=== PATIENT | female | born 1955 | race Caucasian/White ===

== ENCOUNTER → 2018-04-06 09:47 | Outpatient (CLI) | payer MEDICAID, SELFPAY ==
[2018-04-06 12:25] LABS: Erythrocyte Sedimentation Rate 19 mm/hr (0-30)
[2018-04-06 12:29] LABS: Absolute Lymphocyte Count 2.61 X10^3/ul (0.83-4.51); Absolute Neutrophil Count 10.2 X10^3/uL (2.0-7.7); Basophil# 0.06 X10^3/uL; Basophil% 0.4 % (0-1); Eosinophil# 0.15 X10^3/uL; Eosinophils% 1.1 % (0-5); Hematocrit 49.1 % (37-47); Hemoglobin 16.6 g/dl (12.0-15.0); Lymphocyte # 2.61 X10^3/ul (4.0); Mean Corp Hgb Conc 33.8 g/gl (32-36); Mean Corpuscular Hgb 31.8 pg (27.0-32.0); Mean Corpuscular Volume 94.1 fL (81-99); Mean Platelet Vol. 10.6 fl (6.2-12.0); Monocyte# 0.69 X10^3/uL; Neutrophil # 10.19 X10^3/uL (2.7-7.7); Neutrophil % 74.3 % (47-70); Platelet Count 316 K/mm3 (150-450); RBC Distribution Width CV 14.1 % (11.6-14.6); RBC Distribution Width SD 47.4 fl (35.1-43.9); Red Blood Count 5.22 M/mm3 (4.2-5.4); White Blood Count 13.7 K/mm3 (4.4-11.0)
[2018-04-06 12:36] LABS: POSITIVE COUNT NO; POSITIVE DIFFERENTIAL NO; POSITIVE MORPHOLOGY NO
[2018-04-06 12:38] LABS: Vitamin B12 598 pg/mL (211-911); Vitamin D,25 Hydroxy 13.6 ng/mL (29.95-100.01)
[2018-04-06 12:41] LABS: AST(SGOT) 22 U/L (15-37); Alanine Aminotransfer ALT/SGPT 22 U/L (13-56); Albumin, Serum 3.8 g/dL (3.2-5.0); Alkaline Phosphatase 104 U/L (45-117); Anion Gap 9 (5-15); BUN 15 mg/dL (7-18); BUN/Creat Ratio 15.5 RATIO (10-20); Calcium,Total 9.7 mg/dL (8.5-10.1); Chloride 108 mmol/L (98-107); Creatinine, Serum 0.97 mg/dL (0.55-1.02); EST Glomerular Filtration Rate 62 mL/min (>60); Est Glom Filt Rate - Afr Amer 75 mL/min (>60); Glucose 86 mg/dL (74-106); Potassium 4.2 mmol/L (3.5-5.1); Protein, Total 7.8 g/dL (6.4-8.2); Sodium Level 141 mmol/L (136-145); Thyroid Stim Hormone (TSH) 1.94 uIU/mL (0.358-3.74)
== END ==
PROVIDERS: Family Provider Family Medicine; PCP Family Medicine; Visit Provider Family Medicine
DX: R53.83 Other fatigue (principal)
CPT/HCPCS: 80053; 82306; 82607; 84443; 85025; 85652

== ENCOUNTER → 2018-04-13 09:23 | Outpatient (CLI) | payer MEDICAID, SELFPAY ==
[2018-04-13 10:34] LABS: Hematocrit 48.3 % (37-47); Hemoglobin 16.2 g/dl (12.0-15.0); Mean Corp Hgb Conc 33.5 g/gl (32-36); Mean Corpuscular Hgb 31.6 pg (27.0-32.0); Mean Corpuscular Volume 94.3 fL (81-99); Mean Platelet Vol. 10.5 fl (6.2-12.0); Platelet Count 326 K/mm3 (150-450); RBC Distribution Width CV 14.3 % (11.6-14.6); RBC Distribution Width SD 47.9 fl (35.1-43.9); Red Blood Count 5.12 M/mm3 (4.2-5.4)
[2018-04-13 10:37] LABS: Scan Indicated on CBC? Y/N NO
[2018-04-13 10:55] LABS: Thyroid Stim Hormone (TSH) 3.57 uIU/mL (0.358-3.74)
== END ==
PROVIDERS: Family Provider Family Medicine; PCP Family Medicine; Visit Provider Family Medicine
DX: D72.829 Elevated white blood cell count, unspecified (principal); E55.9 Vitamin D deficiency, unspecified
CPT/HCPCS: 36415; 84443; 85027

== ENCOUNTER → 2018-11-01 07:47 | Outpatient (CLI) | payer MEDICAID, SELFPAY ==
[2018-09-19 15:06] VITALS: BMI 21.7
--- NOTE | 2018-11-01 07:55 | BI_ITS ---
MAMMOGRAPHY - BILATERAL SCREENING REASON FOR EXAM: Female, 63 years old. Routine annual screening examination. PERTINENT HISTORY: Sister with breast cancer. History of bilateral breast implants. Left implant rupture in August 2018. TECHNIQUE: Digital bilateral breast celeste (3D mammographic acquisition) in the CC and MLO projections. 2-D mediolateral oblique (MLO) and craniocaudad (CC) views of both breasts were obtained. CAD: Full Field Digital Mammography with Computer Added Detection was performed. COMPARISON: Comparison is made with prior study dated May 26, 2017. FINDINGS: Breast Composition: There are scattered areas of fibroglandular density. There are no dominant masses or suspicious calcifications. The right breast implant is stable and unremarkable. There is evidence of rupture of the left breast implant with a retraction posteriorly. No other significant abnormalities are identified. BI/SCREEN MAMM (CAD) W/CELESTE BILAT IMPRESSION: Stable bilateral screening mammogram. Rupture of the left breast implant with retraction posteriorly. Yearly follow-up mammogram recommended. (A) ASSESSMENT CATEGORY: Approximately 10% of breast cancers are not detected by mammography. A normal mammogram should not delay biopsy of a clinically suspicious abnormality. [id number] Electronically Signed: Osbaldo Herzog MD at 9:19 EST , Service support ,
== END ==
PROVIDERS: Family Provider Family Medicine; PCP Family Medicine; Referring Provider Surgery; Visit Provider Surgery
DX: Z12.31 Encounter for screening mammogram for malignant neoplasm of breast (principal); T85.43XA Leakage of breast prosthesis and implant, initial encounter; Z98.82 Breast implant status; Z80.3 Family history of malignant neoplasm of breast
CPT/HCPCS: 77063; 77067

== ENCOUNTER 2018-12-23 09:52 | Day surgery (SDC) | payer MEDICARE, MEDICAID, SELFPAY ==
[2018-09-19 15:06] VITALS: BMI 21.7
--- NOTE | 2018-12-23 | LES_PTH ---
PATIENT: SEVEN MOORE LOC: [facility] U#:[id number] AGE/SX: 63/F ROOM: RE12/23/[address]: Dr. Gregorio Carolina MD : 1955 BED: DIS: 12/23/2018 SPEC #: [id number] RECD: 12/23/18 15:35 STATUS: YVETTE ANNEMARIE #: [id number] NISHI: 12/23/18 00:[address]: Gregorio Carolina DEPT: SURGICAL PATHOLOGY RECD BY: Slime Kennedy ENTERED: 12/26/18 07:39 SP TYPE: Lesion OTHR DR: Dr. Eder Duque MD Tissues: A - Skin of breast, NOS B - Skin of breast, NOS Procedures: Frozen Section (charge) Surgery Specimen Level IV HEADER OPERATION: Excision lesion skin with skin flap, frozen section, medial breast PRE-OP DIAGNOSIS: 11 mm erythematous lesion left medial breast by sternum TISSUE SUBMITTED: A - 11 mm erythematous lesion left medial breast by sternum, B - Basal cell carcinoma left medial breast by sternum, suture at 12 o'clock FROZEN SECTION DIAGNOSIS A. Skin of left medial breast, shave biopsy: Basal cell carcinoma. AM:elly 12/23/18 Case has been reviewed in consultation with Dr. Garcia who concurs with the above diagnosis. IDC:SJ MICROSCOPIC DIAGNOSIS A. Skin of left medial breast, shave biopsy: Basal cell carcinoma (1.3 cm in greatest width), incompletely excised. Solar elastosis. B. Basal cell carcinoma left breast by sternum, excisional biopsy: Basal cell carcinoma (0.6 cm in greatest width), completely excised in the planes of sections examined. Actinic keratosis and solar elastosis. LALO:elly 12/27/18 COMMENT Case has been reviewed in consultation with Dr. Lockett who concurs with the above diagnosis. IDC:AM MICROSCOPIC DESCRIPTION Slides are reviewed. GROSS DESCRIPTION A - Received fresh for frozen section consultation labeled with the patient's name is a specimen designated left medial skin shave biopsy. The specimen consists of a light chen shaved skin fragment measuring 1.5 x 1 x 0.1 cm. The specimen is inked, trisected and totally submitted for frozen section consultation in one block. / AM:elly 12/23/18 B - Received in fixative is one container labeled with the patient's name and designated basal cell carcinoma left medial breast by sternum, suture at 12 o'clock. The specimen consists of a ivy-shaped piece of chen-white skin measuring 2 x 1.5 cm and up to 0.4 cm in thickness. An open area of ulceration is noted consistent with site of specimen measuring 1 cm in greatest dimension. The specimen is inked as follows: 12 to 3 o'clock - black, 3 to 6 o'clock - blue, 6 to 9 o'clock - green and 9 to 12 o'clock - yellow. The specimen is serially sectioned and submitted entirely in one cassette. / SJ:elly 12/26/18 TC:0 CPT: 45023 x2, 37722
--- NOTE | 2018-12-23 00:05 | PCM.HP.BLA ---
History and Physical Date of Admission: 12/23/18 HISTORY OF PRESENT ILLNESS Patient is a 63 year old female presents for evaluation of breast implant removal. She believes her left breast implant ruptured about one month ago. She denies any trauma to her breasts. She states it started out as a small dimpling on her left breast and the next day it spontaneously flattened. She had saline implants placed at [facility] in [address] Webb. They no longer have her records from the time of surgery. She states they are saline implants and she believes they are 350 cc implants and placed under the muscle. She denies any pain or discomfort at this time. She does have a positive family history of breast cancer from her sister and aunt. Her last mammogram was over a year ago in 05/30. She also has a concern about an erythematous lesion on her left medial breast by the sternum that has increased in size over the last several months and has developed irregular borders and has become more raised in configuration. She denies any bleeding from this lesion. PAST MEDICAL HISTORY Negative PAST SURGICAL HISTORY section hysterectomy breast implants, bilateral ALLERGIES No Known Allergies MEDICATIONS alprazolam FAMILY HISTORY Father - Cancer Brother - Cancer Sister - Cancer SOCIAL HISTORY Smoking Status: Current every day smoker REVIEW OF SYSTEMS General - Denies fever and weight loss. Has fatigue. Eyes - Denies cataracts and glaucoma. ENT - Denies nasal congestion and sore throat. Endocrine - Denies excessive thirst and urination. Skin - Denies skin cancer. She has an enlarging erythematous lesion left medial breast by the sternum. Musculoskeletal - Denies joint pain, joint stiffness, weakness of muscles and joints, back pain, and arthritis. Breasts - Has history of saline breast implants and recent flattening of left breast clinically consistent with implant rupture. Neuro - Denies headaches. Cardiovascular - Denies chest pain, fatigue, and shortness of breath with exertion. Psych - Denies anxiety. Has depression. Has claustrophobia. Respiratory - Denies chronic cough and shortness of breath. Gastrointestinal - Denies nausea, vomiting, diarrhea, and constipation. Hematologic - Denies abnormal bruising and bleeding. Genitourinary - Denies hematuria and urinary frequency. PHYSICAL EXAMINATION General - Alert and oriented. Bra size is C cup after the implants. Bra size was A cup before the implants. HEENT - PERRL. EOMI. Throat is clear. Neck - Supple and non-tender. No cervical adenopathy. Breasts - Has breast asymmetry with flattening and rupture of left breast saline implant. Breasts are nontender. Nipple is located just below the inframammary fold with early Stage II ptosis. There is some superior pole fullness on the right breast. No breast masses palpable. No axillary adenopathy. Breasts are nontender. Periareolar incisions remain well healed. Breast width is 14 cm bilaterally. On the left medial breast by the sternum is an erythematous lesion that measures 12 mm. Is nodular with irregular borders. It is raised in configuration. No ulceration. Lesion is nontender. Lungs- Clear to auscultation. Heart - Regular rate and rhythm. Abdomen - Soft and non distended. Extremities - FROM. No axillary adenopathy. Radial pulses are palpable. Neuro - CN II-XII grossly intact. Psych - Normal mood and affect. ASSESSMENT 1. 12 mm erythematous lesion left medial breast by the sternum. 2. Saline implant rupture left breast. 3. History of submuscular saline breast implants. 4. Family history of breast cancer. 5. Cancer phobia bilateral breasts. PLAN She also has a lesion on her left medial breast by the sternum that is clinically consistent with a basal cell carcinoma. Recommend excision of this lesion and send it to Pathology for analysis to rule out carcinoma. If carcinoma is present, then further excision will be done with a skin flap reconstruction. Surgery will be done on an outpatient basis under local anesthesia and IV sedation. Patient also has breast asymmetry with flattening and rupture of the left breast saline implant. She believes they were 350 ml implants and placed under the muscle. Cannot get the old records, because [facility] stated they keep records for 10 years and her implants were placed in 2003. Recommend to the patient that we should removed both saline implants with capsulectomy for symmetry purposes. She is not interested in replacing the implants at this time. She understands that there will be some looseness of the skin after removal of the implants. Some of the skin will contract but she should anticipate some looseness of skin. Patient understands that her insurance may not cover the cost of the surgery to remove the implants with capsulectomy and that she would be financially responsible. She voices understanding and wishes to proceed. She had a mammogram in 11/01. It showed scattered areas of fibroglandular density. There are no dominant masses or suspicious calcifications. The right breast implant is stable and unremarkable. There is evidence of rupture of the left breast implant with a retraction posteriorly. Over the years the patient has become concerned about developing breast cancer because of her family history. She also has concerns that the presence of the implants may miss a breast cancer on radiography. Because the implants need to be removed at this time because of rupture, she may benefit from prophylactic mastectomies at some point to minimize developing breast cancer in the future. Patient will let me know if she wants to proceed with that option. If so, would write a letter to her insurance carrier for medical approval. Will schedule the probable skin cancer excision first and then proceed with her breast implant removal surgery to avoid risk of cancer cell spread during the surgery. The implant surgery would be done under general anesthesia with a surgical observation overnight stay in the hospital. Patient was informed of the risks and complications of the procedure including alternatives to surgery. These were discussed with the patient personally. Patient voices understanding and wishes to proceed. Some of the risks and complications were included in a form from the [employer].
[2018-12-23 11:44] VITALS: BP 120/83; PULSE 74; RESP 14; TEMP 36.8; O2SAT 98; BMI 22.1
[2018-12-23] MEDS: Cefazolin 2 GM in 0.9% Normal Saline 100 ML IV (15:08)
[2018-12-23] MEDS: Mupirocin Ointment 22gm Tube 1 APPLIC (15:59)
--- NOTE | 2018-12-23 16:09 | PCM.OPRPT ---
Report of Operation Date of Procedure: 12/23/18 Pre-Operative Diagnosis: 12 mm erythematous lesion left medial breast by the sternum. Post-Operative Diagnosis: 12 mm basal cell carcinoma left medial breast by the sternum. Surgery/Procedure Performed:: Excision 12 mm basal cell carcinoma left medial breast by the sternum with rhomboid transposition skin flap reconstruction (6.48 cm2). Description of Surgical Findings:: Patient is a 63 year old female presents for evaluation of breast implant removal. She believes her left breast implant ruptured about one month ago. She denies any trauma to her breasts. She states it started out as a small dimpling on her left breast and the next day it spontaneously flattened. She had saline implants placed at [facility] in [address] Webb. They no longer have her records from the time of surgery. She states they are saline implants and she believes they are 350 cc implants and placed under the muscle. She denies any pain or discomfort at this time. She does have a positive family history of breast cancer from her sister and aunt. Her last mammogram was over a year ago in 05/30. She also has a concern about an erythematous lesion on her left medial breast by the sternum that has increased in size over the last several months and has developed irregular borders and has become more raised in configuration. She denies any bleeding from this lesion. Patient was informed of the risks and complications of the procedure including alternatives to surgery. These were discussed with the patient personally. Patient voices understanding and wishes to proceed. Some of the risks and complications were included in a form from the [employer]. Frozen section left medial breast by sternum - basal cell carcinoma. 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 Erythematous lesion left medial breast by sternum to Pathology as a frozen section. 2. Basal cell carcinoma left medial breast by sternum to Pathology. Drains: None. Estimated Blood Loss (mL): 10 ml. Grafts/Implants Used: None. - Complications None. - Admit VTE Documentation VTE Present on Admission: No VTE Mechan Device Prophylaxis: SCD's VTE Pharm Prophylaxis ordered?: No Code Visit Surgery Charges CPT - 24079 ICD-10 - C44.511, C44.519
[2018-12-23 16:16] VITALS: BP 107/74; BP 120/83; PULSE 72; RESP 16; TEMP 36.7; O2SAT 95
--- NOTE | 2018-12-23 16:16 | PCM.DC ---
You will use the following diet at home:: No restrictions Discharge Activity: May not drive while taking narcotic pain medications., May Shower - in two days., - - keep head elevated. no heavy lifting. wear a bra. May shower in (days): 2 May resume sexual activity in: No Restrictions Weight Bearing Status: Weight bearing as tolerated Lifting Restrictions: 20 lbs. Keep extremity elevated above heart level: - - elevate head. Call your doctor if your incision/area has: Continuous Slow Oozing, Sudden Increased Bleeding, Increased Pain/ Swelling, Increased Redness, Foul Smelling Discharge, Swelling at the incision site Call your doctor if you observe: Fever of 101 or Higher, Coldness, Increased Pain, Shortness of breath, Chest pain, Calf discomfort, Uncontrolled pain Suture Line Care: - - after operative dressing removed in two days, apply bactroban ointment to suture line daily. Change Dressing in (Days):: 2 Cleanse incision/area with: - - may get incision wet in the shower in two days. Allergies/Adverse Reactions: Allergies No Known Allergies Allergy (Verified 12/16/18 14:20) Medications to take at Discharge alprazolam 0.5 mg tablet 0.5 mg PO BID-TID PRN 09/19/18 Cholecalciferol (Vitamin D3) [Vitamin D3] 5,000 unit PO DAILY 12/16/18 Red Yeast Rice 1,200 mg PO DAILY 12/16/18 Mahin's Wort 300 mg PO DAILY 12/16/18 Cefadroxil [Duricef] 500 mg PO BID #8 cap 12/23/18 Lactobacillus Acidophilus/Fos [Acidophilus Probiotic Tablet] 1 ea PO BID #10 tab 12/23/18 Oxycodone HCl/Acetaminophen [Percocet 5/325] 1 tab PO 4X/DAY PRN PRN 5 Days #20 tab 12/23/18 The following prescriptions were given: Oxycodone HCl/Acetaminophen [Percocet 5/325] 1 tab PO 4X/DAY PRN PRN 5 Days #20 tab PRN Reason: Pain Cefadroxil [Duricef] 500 mg PO BID #8 cap Lactobacillus Acidophilus/Fos [Acidophilus Probiotic Tablet] 1 ea PO BID #10 tab Primary Care Physician: Rob Duque MD [Primary Care Provider] - Test Results: Test results from this visit will be discussed in further detail at your follow-up appointment, if applicable. Please Follow Up With: Gregorio Carolina MD When: one week. call [phone] for appt. Proposed Discharge Date: 12/23/18
--- NOTE | 2018-12-23 16:19 | DCINST_ITS ---
You will use the following diet at home:: No restrictions Discharge Activity: May not drive while taking narcotic pain medications., May Shower - in two days., - - keep head elevated. no heavy lifting. wear a bra. May shower in (days): 2 May resume sexual activity in: No Restrictions Weight Bearing Status: Weight bearing as tolerated Lifting Restrictions: 20 lbs. Keep extremity elevated above heart level: - - elevate head. Call your doctor if your incision/area has: Continuous Slow Oozing, Sudden Increased Bleeding, Increased Pain/ Swelling, Increased Redness, Foul Smelling Discharge, Swelling at the incision site Call your doctor if you observe: Fever of 101 or Higher, Coldness, Increased Pain, Shortness of breath, Chest pain, Calf discomfort, Uncontrolled pain Suture Line Care: - - after operative dressing removed in two days, apply bactroban ointment to suture line daily. Change Dressing in (Days):: 2 Cleanse incision/area with: - - may get incision wet in the shower in two days. Allergies/Adverse Reactions: Allergies No Known Allergies Allergy (Verified 12/16/18 14:20) Medications to take at Discharge alprazolam 0.5 mg tablet 0.5 mg PO BID-TID PRN 09/19/18 Cholecalciferol (Vitamin D3) [Vitamin D3] 5,000 unit PO DAILY 12/16/18 Red Yeast Rice 1,200 mg PO DAILY 12/16/18 Mahin's Wort 300 mg PO DAILY 12/16/18 Cefadroxil [Duricef] 500 mg PO BID #8 cap 12/23/18 Lactobacillus Acidophilus/Fos [Acidophilus Probiotic Tablet] 1 ea PO BID #10 tab 12/23/18 Oxycodone HCl/Acetaminophen [Percocet 5/325] 1 tab PO 4X/DAY PRN PRN 5 Days #20 tab 12/23/18 The following prescriptions were given: Oxycodone HCl/Acetaminophen [Percocet 5/325] 1 tab PO 4X/DAY PRN PRN 5 Days #20 tab PRN Reason: Pain Cefadroxil [Duricef] 500 mg PO BID #8 cap Lactobacillus Acidophilus/Fos [Acidophilus Probiotic Tablet] 1 ea PO BID #10 tab Primary Care Physician: Rob Duque MD [Primary Care Provider] - Test Results: Test results from this visit will be discussed in further detail at your follow- up appointment, if applicable. Please Follow Up With: Gregorio Carolina MD When: one week. call [phone] for appt. Proposed Discharge Date: 12/23/18
[2018-12-23 16:30] VITALS: BP 120/83; BP 90/68; PULSE 70; RESP 16; O2SAT 97
[2018-12-23 16:45] VITALS: BP 120/83; BP 125/83; PULSE 70; RESP 16; TEMP 36.7; O2SAT 97
[2018-12-23 17:12] VITALS: BP 120/83; BP 125/80; PULSE 68; RESP 16; TEMP 36.4; O2SAT 96
== END 2018-12-23 17:23 | disposition home or self-care (01) ==
LOC: SDC 09:54 → AC 12:50
PROVIDERS: Family Provider Family Medicine; PCP Family Medicine; Referring Provider Surgery; Visit Provider Surgery
PROC: (CPT 14000; principal; 2018-12-23 11:55)
DX: C44.511 Basal cell carcinoma of skin of breast (principal); C44.519 Basal cell carcinoma of skin of other part of trunk; T85.49XA Other mechanical complication of breast prosthesis and implant, initial encounter; Z98.82 Breast implant status; F17.200 Nicotine dependence, unspecified, uncomplicated; E78.00 Pure hypercholesterolemia, unspecified; F32.9 Major depressive disorder, single episode, unspecified; F41.9 Anxiety disorder, unspecified; Z80.3 Family history of malignant neoplasm of breast
CPT/HCPCS: 00400; 14000; 88305; 88331; J7120; J2405

== ENCOUNTER → 2019-01-12 08:38 | Outpatient (CLI) | payer MEDICARE, MEDICAID, SELFPAY ==
[2019-01-02 14:12] VITALS: BMI 22.1
[2019-01-12 10:07] LABS: Hematocrit 46.7 % (37-47); Hemoglobin 15.3 g/dl (12.0-15.0); Mean Corp Hgb Conc 32.8 g/gl (32-36); Mean Corpuscular Hgb 30.5 pg (27.0-32.0); Mean Corpuscular Volume 93.2 fL (81-99); Mean Platelet Vol. 10.2 fl (6.2-12.0); Platelet Count 336 K/mm3 (150-450); RBC Distribution Width CV 14.4 % (11.6-14.6); RBC Distribution Width SD 48.6 fl (35.1-43.9); Red Blood Count 5.01 M/mm3 (4.2-5.4); White Blood Count 10.3 K/mm3 (4.4-11.0)
[2019-01-12 10:12] LABS: Scan Indicated on CBC? Y/N NO
[2019-01-12 10:39] LABS: AST(SGOT) 16 U/L (15-37); Alanine Aminotransfer ALT/SGPT 17 U/L (13-56); Albumin, Serum 3.8 g/dL (3.2-5.0); Alkaline Phosphatase 108 U/L (45-117); Anion Gap 9 (5-15); BUN 16 mg/dL (7-18); BUN/Creat Ratio 17.6 RATIO (10-20); Calcium,Total 9.8 mg/dL (8.5-10.1); Chloride 107 mmol/L (98-107); Creatinine, Serum 0.91 mg/dL (0.55-1.02); EST Glomerular Filtration Rate 66 mL/min (>60); Est Glom Filt Rate - Afr Amer 80 mL/min (>60); Globulin 3.7 g/dL (2.2-4.2); Glucose 87 mg/dL (74-106); Potassium 4.1 mmol/L (3.5-5.1); Protein, Total 7.5 g/dL (6.4-8.2); Sodium Level 142 mmol/L (136-145)
[2019-01-12 14:16] LABS: Vitamin D,25 Hydroxy 46.6 ng/mL (29.95-100.01)
== END ==
PROVIDERS: Family Provider Family Medicine; PCP Family Medicine; Referring Provider Family Medicine; Visit Provider Family Medicine
DX: D72.829 Elevated white blood cell count, unspecified (principal); E55.9 Vitamin D deficiency, unspecified; R53.83 Other fatigue
CPT/HCPCS: 36415; 80053; 82306; 85027

== ENCOUNTER → 2019-06-26 09:26 | Outpatient (CLI) | payer MEDICARE, MEDICAID, SELFPAY ==
[2019-01-12 08:53] VITALS: BMI 22.1
--- NOTE | 2019-06-26 09:29 | US_ITS ---
PROCEDURES: ULTRASOUND AORTA REASON FOR EXAM: Female, 64 years old. Screening. TECHNIQUE: Ultrasound evaluation of the aorta was performed with real-time and static dove-scale imaging. COMPARISON: None. FINDINGS: There is no elongation or tortuosity of the abdominal aorta. Aorta measures: Proximal 1.9 cm. Middle 1.3 cm. Distal 1.1 cm. Aorta measure transversely: Proximal 1.8 cm. Middle 4.3 cm. Distal 1.2 cm. There is normal color flow and Doppler waveform and velocity Right iliac artery measures: 0.7 cm. Right iliac artery measure transversely: 0.8 cm. Left iliac artery measures: 0.7 cm. Left iliac artery measure transversely: 0.8 cm. There is no demonstrated aneurysm.. US/Aorta IMPRESSION: No evidence for abdominal aortic aneurysm. Electronically Signed: Alejandro Lyons DO at 12:42 EDT Tel [phone], Service support ,
== END ==
PROVIDERS: Family Provider Family Medicine; PCP Family Medicine; Referring Provider Family Medicine; Visit Provider Family Medicine
DX: Z13.6 Encounter for screening for cardiovascular disorders (principal)
CPT/HCPCS: 76775

== ENCOUNTER 2019-08-25 11:22 | Observation (INO) | payer MEDICARE, MEDICAID, SELFPAY ==
[2019-01-12 08:53] VITALS: BMI 22.1
[2019-08-18 10:22] LABS: Hematocrit 52.4 % (37-47); Hemoglobin 17.1 g/dL (12.0-15.0); Mean Corp Hgb Conc 32.6 g/dL (32-36); Mean Corpuscular Hgb 30.6 pg (27.0-32.0); Mean Corpuscular Volume 93.7 fL (81-99); Mean Platelet Vol. 11.5 fl (6.2-12.0); Platelet Count 256 K/mm3 (150-450); RBC Distribution Width CV 14.3 % (11.6-14.6); RBC Distribution Width SD 49.4 fl (35.1-43.9); Red Blood Count 5.59 M/mm3 (4.2-5.4)
--- NOTE | 2019-08-24 18:12 | PCM.HP.BLA ---
History and Physical Date of Admission: 08/25/19 HISTORY OF PRESENT ILLNESS Patient is a 64 year old female presents for evaluation of breast implant removal. She believes her left breast implant ruptured several month ago. She denies any trauma to her breasts. She states it started out as a small dimpling on her left breast and the next day it spontaneously flattened. She had saline implants placed at [facility] in [address] Webb. They no longer have her records from the time of surgery. She states they are saline implants and she believes they are 350 cc implants and placed under the muscle. She denies any pain or discomfort at this time. She does have a positive family history of breast cancer from her sister and aunt. Her last mammogram was in October,. It showed scattered areas of fibroglandular density. There are no dominant masses or suspicious calcifications. The right breast implant is stable and unremarkable. There is evidence of rupture of the left breast implant with a retraction posteriorly. PAST MEDICAL HISTORY Basal cell carcinoma left medial breast by the sternum PAST SURGICAL HISTORY section hysterectomy breast implants, bilateral Excision 12 mm basal cell carcinoma left medial breast by the sternum with rhomboid transposition skin flap reconstruction (6.48 cm2) - 12/23/18 ALLERGIES No Known Allergies MEDICATIONS alprazolam FAMILY HISTORY Father - Cancer Brother - Cancer Sister - Cancer SOCIAL HISTORY Smoking Status: Current every day smoker REVIEW OF SYSTEMS General - Denies fever and weight loss. Has fatigue. Eyes - Denies cataracts and glaucoma. ENT - Denies nasal congestion and sore throat. Endocrine - Denies excessive thirst and urination. Skin - Denies skin cancer. She has an enlarging erythematous lesion left medial breast by the sternum. Musculoskeletal - Denies joint pain, joint stiffness, weakness of muscles and joints, back pain, and arthritis. Breasts - Has history of saline breast implants and recent flattening of left breast clinically consistent with implant rupture. Neuro - Denies headaches. Cardiovascular - Denies chest pain, fatigue, and shortness of breath with exertion. Psych - Denies anxiety. Has depression. Has claustrophobia. Respiratory - Denies chronic cough and shortness of breath. Gastrointestinal - Denies nausea, vomiting, diarrhea, and constipation. Hematologic - Denies abnormal bruising and bleeding. Genitourinary - Denies hematuria and urinary frequency. PHYSICAL EXAMINATION General - Alert and oriented. Bra size is C cup after the implants. Bra size was A cup before the implants. HEENT - PERRL. EOMI. Throat is clear. Neck - Supple and non-tender. No cervical adenopathy. Breasts - Has breast asymmetry with flattening and rupture of left breast saline implant. Breasts are nontender. Nipple is located just below the inframammary fold with early Stage II ptosis. There is some superior pole fullness on the right breast. No breast masses palpable. No axillary adenopathy. Breasts are nontender. Periareolar incisions remain well healed. Breast width is 14 cm bilaterally. Lungs- Clear to auscultation. Heart - Regular rate and rhythm. Abdomen - Soft and non distended. Extremities - FROM. No axillary adenopathy. Radial pulses are palpable. Neuro - CN II-XII grossly intact. Psych - Normal mood and affect. ASSESSMENT 1. Saline implant rupture left breast. 2. History of submuscular saline breast implants. 3. Family history of breast cancer. 4. 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 5. Smoker. PLAN Patient has breast asymmetry with flattening and rupture of the left breast saline implant. She believes they were 350 ml implants and placed under the muscle. Cannot get the old records, because [facility] stated they keep records for 10 years and her implants were placed in 2003. Recommend to the patient that we should removed both saline implants with capsulectomy for symmetry purposes. She is not interested in replacing the implants at this time. She understands that there will be some looseness of the skin after removal of the implants. Some of the skin will contract but she should anticipate some looseness of skin. Patient understands that her insurance may not cover the cost of the surgery to remove the implants with capsulectomy and that she would be financially responsible. The insurance company did not approve removal of the implant on the right for symmetry. So will proceed with removal of the ruptured left implant with capsulectomy at this time. She had a mammogram in 11/01. It showed scattered areas of fibroglandular density. There are no dominant masses or suspicious calcifications. The right breast implant is stable and unremarkable. There is evidence of rupture of the left breast implant with a retraction posteriorly. The implant surgery would be done under general anesthesia with a surgical observation overnight stay in the hospital. Patient was informed of the risks and complications of the procedure including alternatives to surgery. These were discussed with the patient personally. Patient voices understanding and wishes to proceed. Some of the risks and complications were included in a form from the [employer]. Encouraged patient to stop smoking as it may have deleterious effects on wound healing.
[2019-08-25] VITALS (12 sets, daily range): BP systolic 104–137; BP diastolic 67–95; PULSE 76–91; RESP 16; TEMP 36.2–37; O2SAT 91–99; BMI 22.1
[2019-08-25] MEDS: Scopolamine 1mg/72hr Patch 1 PATCH TRANSDERM. (07:00)
[2019-08-25 07:36] LABS: Bedside Glucose 79 mg/dL (70-110)
[2019-08-25] MEDS: Magnesium Sulfate 4gm/100mL 4 GM/100 ML IV.SOLN. IV (07:54)
[2019-08-25] MEDS: Lactated Ringers 1,000 ML 40 ML IV (07:55)
[2019-08-25] MEDS: Acetaminophen 500 MG Tablet 1000 MG PO ×4 (07:56→23:00)
[2019-08-25] MEDS: Gabapentin 600 MG Tablet PO (07:56)
--- NOTE | 2019-08-25 09:20 | BRBX_PTH ---
PATIENT: SEVEN MOORE LOC: MS3 U#:[id number] AGE/SX: 64/F ROOM: [facility] [place] RE08/25/[address]: Dr. Gregorio Carolina MD : 1955 BED: 1 DIS: 08/26/2019 SPEC #: [id number] RECD: 08/25/19 12:06 STATUS: YVETTE RECarl #: [id number] NISHI: 08/25/19 09:[address]: Gregorio Carolina DEPT: SURGICAL PATHOLOGY RECD BY: Solitario Morin ENTERED: 08/25/19 14:04 SP TYPE: BREAST BX OTHR DR: Dr. Eder Duque MD Tissues: Left breast, NOS Procedures: Surgery Specimen Level IV HEADER OPERATION: Breast reconstruction with removal ruptured breast implant PRE-OP DIAGNOSIS: Saline implant rupture left breast TISSUE SUBMITTED: Ruptured saline breast implant, tissue and capsule from left breast area MICROSCOPIC DIAGNOSIS Breast implant capsule, excision: Breast tissue with fibrocystic change and associated Banal microcalcifications. Focal intraductal hyperplasia without atypia. Capsular tissue with fibrosis, foreign body giant cells and mild chronic inflammation. AM:elly 08/28/19 COMMENT Reference is made to the patient's previous left breast skin medial aspect, shave biopsy from 12/27/18 ([id number]) in which basal cell carcinoma was identified. MICROSCOPIC DESCRIPTION Slides are reviewed. GROSS DESCRIPTION Received in fixative is one container labeled with the patient's name and designated left breast tissue capsule, ruptured saline breast implant. The specimen consists of multiple irregular fragments of pink-yellow fibroadipose tissue that in aggregate measure 8 x 6 x 2 cm. No mass lesion is identified. Also present in the container is a collapsed breast implant measuring 14 cm in diameter. No inscription is noted on the implant. The implant is for gross identification only. Dev Ops Engineer sections of soft tissue are submitted in three cassettes. / SJ:elly 08/25/19 TC:3 CPT: 94855
[2019-08-25] MEDS: Cefazolin 2 GM in 0.9% Normal Saline 100 ML IV (09:45)
--- NOTE | 2019-08-25 11:06 | OP.PCM_ITS ---
Report of Operation Date of Procedure: 08/25/19 Pre-Operative Diagnosis: 1 Saline implant rupture left breast. 2. History of submuscular saline breast implants. 3. Family history of breast cancer. 4. Smoker. Post-Operative Diagnosis: 1 Saline implant rupture left breast. 2. History of submuscular textured saline breast implants. 3. Family history of breast cancer. 4. 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 5. Smoker. Surgery/Procedure Performed:: 1. Removal of textured saline implant left breast. 2. Capsulectomy left breast. Description of Surgical Findings:: Patient is a 64 year old female presents for evaluation of breast implant removal. She believes her left breast implant ruptured about one month ago. She denies any trauma to her breasts. She states it started out as a small dimpling on her left breast and the next day it spontaneously flattened. She had saline implants placed at [facility] in [address] Webb. They no longer have her records from the time of surgery. She states they are saline implants and she believes they are 350 cc implants. Patient was informed of the risks and complications of the procedure including alternatives to surgery. These were discussed with the patient personally. Patient voices understanding and wishes to proceed. Some of the risks and complications were included in a form from the [employer]. Encouraged patient to stop smoking as it may have deleterious effects on wound healing. I used Yessi absorbable hemostat. Reference Number - [id number]. Lot Number - [id number]. Expiration - May 10, 2024. vision teacher: Basil Carrera. Type of Anesthesia:: General Specimen's removed: 1. Ruptured texture saline implant left breast to Pathology. 2. Left breast tissue and capsule to Pathology and Microbiology. Drains: Joce. Estimated Blood Loss (mL): 50 ml. Description of Procedure: Patient was taken to OR in supine position and was placed under general anesthesia. The breasts were prepped and draped in the usual fashion. I also used Ioban draping. SCD's were placed for DVT prophylaxis. Perioperative antibiotics were given intravenously. Using xylocaine with epinephrine, the previous periareolar scar was infiltrated. After waiting 5 minutes for the anesthetic to take effect, incision was made through the periareolar scar into the subcutaneous tissue. After dissecting through the subcutaneous tissue, the breast capsule was seen. A capsulotomy was performed and the implant was removed. The textured saline implant was deflated. Some exudate was present on the implant and was sent for culture. A complete capsulectomy was performed in a submuscular fashion. Some of the tissue was sent to Pathology for analysis and some of the tissue was sent to Microbiology for culture. During the capsulectomy, there was some dense areas of scar tissue that was excised. There were also dark green cystic structures mostly under the nipple areolar complex that were excised and sent to pathology as well as to microbiology. A positive culture will necessitate antibiotic therapy. Hemostasis was obtained with electrocautery. I irrigated the breast pocket with Irrisept 0.05% Chlorhexidine solution. This was followed by irrigation with saline. A size 15 Joce drain was placed into the breast pocket through a separate stab incision laterally. It was secured to the skin with 3-0 Nylon suture. To further minimize seroma formation, I sprayed Yessi absorbable hemostat into the breast pocket. The wound was then closed in a layered fashion with 3-0 Monocryl figure of eight interrupted sutures for the deep subcutaneous tissue. The deep dermis and subcutaneous tissue was approximated with 3-0 Monocryl interrupted sutures. The skin was approximated with 3-0 V lock unidirectional barbed running subcuticular suture. The left breast was dressed with Kerlix gauze followed by an KENYATTA wrap for compression to minimize seroma formation. Patient tolerated the procedure well and was sent to PACU in satisfactory condition. Patient will be sent upstairs for continued postop care. She will keep her head elevated during the initial postop period. She will have the drains removed in 10-14 days and be maintained on antibiotics until the drains are removed. She will also be on a lifting restriction. Grafts/Implants Used: None. - Complications None. - Admit VTE Documentation VTE Present on Admission: No VTE Mechan Device Prophylaxis: SCD's VTE Pharm Prophylaxis ordered?: No Code Visit Surgery Charges CPT - 40797 ICD-10 - T85.43xA, Z98.82, Z80.3, T85.44xA, N65.1, F17.200
[2019-08-25] MEDS: Ensure Surgery 237 ML LIQUID PO ×2 (13:46→17:47)
[2019-08-25] MEDS: Cefazolin 1 GM/50 ML BAG IV ×2 (13:46→21:42)
[2019-08-25] MEDS: Docusate Sodium 100 MG Capsule PO (21:42)
[2019-08-25] MEDS: MELATONIN 10 MG TABLET 5 MG PO (21:54)
[2019-08-26 03:38] VITALS: BP 108/75; PULSE 84; RESP 16; TEMP 36.6; O2SAT 96
[2019-08-26] MEDS: Cefazolin 1 GM/50 ML BAG IV (05:22)
[2019-08-26] MEDS: Enoxaparin 40 MG/0.4 ML Syringe SC (05:23)
[2019-08-26 06:44] LABS: Hematocrit 43.9 % (37-47); Hemoglobin 14.1 g/dL (12.0-15.0); Mean Corp Hgb Conc 32.1 g/dL (32-36); Mean Corpuscular Hgb 30.4 pg (27.0-32.0); Mean Corpuscular Volume 94.6 fL (81-99); Platelet Count 289 K/mm3 (150-450); RBC Distribution Width CV 14.4 % (11.6-14.6); RBC Distribution Width SD 49.9 fl (35.1-43.9); Red Blood Count 4.64 M/mm3 (4.2-5.4)
[2019-08-26 07:01] LABS: Anion Gap 1 (5-15); BUN 14 mg/dL (7-18); BUN/Creat Ratio 16.8 RATIO (10-20); Calcium,Total 8.8 mg/dL (8.5-10.1); Chloride 110 mmol/L (98-107); Creatinine, Serum 0.83 mg/dL (0.55-1.02); EST Glomerular Filtration Rate 73 mL/min (>60); Est Glom Filt Rate - Afr Amer 88 mL/min (>60); Estimated Creatinine Clearance 48.54 ml/min; Glucose 98 mg/dL (74-106); Potassium 4.3 mmol/L (3.5-5.1); Prealbumin 25.1 mg/dL (20.0-40.0); Sodium Level 142 mmol/L (136-145)
[2019-08-26 07:03] VITALS: O2SAT 98
[2019-08-26] MEDS: Docusate Sodium 100 MG Capsule PO (07:53)
[2019-08-26] MEDS: Ensure Surgery 237 ML LIQUID PO (07:53)
[2019-08-26] MEDS: Acetaminophen 500 MG Tablet 1000 MG PO (07:57)
[2019-08-26 08:02] VITALS: BP 111/72; PULSE 81; RESP 16; TEMP 36.7; O2SAT 95
--- NOTE | 2019-08-26 08:13 | PCM.DC ---
You will use the following diet at home:: No restrictions Discharge Activity: May not drive while taking narcotic pain medications., May Not Shower - until the drain is removed., - - keep head elevated. no heavy lifting. May shower in (days): 14 - when the drain is removed. May resume sexual activity in: No Restrictions Weight Bearing Status: Weight bearing as tolerated Lifting Restrictions: 20 lbs. Keep extremity elevated above heart level: - - elevate head. Call your doctor if your incision/area has: Continuous Slow Oozing, Sudden Increased Bleeding, Increased Pain/ Swelling, Increased Redness, Foul Smelling Discharge, Swelling at the incision site Call your doctor if you observe: Fever of 101 or Higher, Coldness, Increased Pain, Shortness of breath, Chest pain, Calf discomfort, Uncontrolled pain Suture Line Care: - - dry dressing daily. Change Dressing in (Days):: 1 - dry dressing daily. Cleanse incision/area with: - - may get incision wet in the shower after the drain is removed. Drain: Suction - emily drain to bulb suction. empty and record output daily. Allergies/Adverse Reactions: Allergies No Known Allergies Allergy (Verified 08/25/19 07:44) Medications to take at Discharge alprazolam 0.5 mg tablet 0.5 mg PO BID-TID PRN 09/19/18 Cholecalciferol (Vitamin D3) [Vitamin D3] 5,000 unit PO DAILY 12/16/18 Red Yeast Rice 1,200 mg PO DAILY 12/16/18 [place]'s Wort 300 mg PO DAILY 12/16/18 Bupropion HCl [Wellbutrin Xl] 150 mg PO DAILY 08/18/19 Cefadroxil [Duricef] 500 mg PO BID #30 cap 08/25/19 Lactobacillus Acidophilus/Fos [Acidophilus Probiotic Tablet] 1 ea PO BID #30 tab 08/25/19 Oxycodone HCl/Acetaminophen [Percocet 5/325] 1 tab PO Q6H PRN PRN 7 Days #30 tab 08/25/19 The following prescriptions were given: Lactobacillus Acidophilus/Fos [Acidophilus Probiotic Tablet] 1 ea PO BID #30 tab Transmission Status: Received by [id number] Cefadroxil [Duricef] 500 mg PO BID #30 cap Transmission Status: Received by [id number] Oxycodone HCl/Acetaminophen [Percocet 5/325] 1 tab PO Q6H PRN PRN 7 Days #30 tab PRN Reason: Pain Score 4-5/10 Transmission Status: Received by [id number] Orders to be completed after discharge: CBC-Complete Blood Cnt No Diff Time Frame: 08/18/19, Facility: [facility], Location: Laboratory Primary Care Physician: Rob Duque MD [Primary Care Provider] - Test Results: Test results from this visit will be discussed in further detail at your follow-up appointment, if applicable. Please Follow Up With: Gregorio Carolina MD When: one week. call [phone] for appt. Proposed Discharge Date: 08/26/19
--- NOTE | 2019-08-26 12:03 | PCM.PN.SRG ---
Subjective: Postop #1 Patient is resting comfortable. She is tolerating po analgesia. She is anxious to go home. - Physical Exam Vitals/I&O's: Vital Signs Temp Pulse Resp BP Pulse Ox 98.1 F 81 16 111/72 95 08/26/19 08:02 08/26/19 08:02 08/26/19 08:02 08/26/19 08:02 08/26/19 08:02 Oxygen Flow Rate (L/min) 6 Oxygen Delivery Method Room Air Weight: 113 lb 12.136 oz Body Mass Index (BMI) 22.1 Intake and Output for Last 24 Hours 08/24/19 08/25/19 08/26/19 23:59 23:59 23:59 Intake Total 1241.33 / 1641.33 1182.00 / 1182.00 Output Total 1035 / 1775 1430 / 1430 Balance 206.33 / -133.67 -248.00 / -248.00 Drainage 35 ml yesterday, 80 ml today. Skin: - - left breast dressing is dry. Microbiology Past 72 Hours 08/25/19 11:37 Biopsy - Tissue Gram Stain - Final 08/25/19 11:37 Biopsy - Tissue Wound Culture - Preliminary No growth-Final to follow Laboratory Results 08/26/19 05:20: Sodium 142, Potassium 4.3, Chloride 110 H, Carbon Dioxide 31.0, Anion Gap 1 L, BUN 14, Creatinine 0.83, Estim Creat Clear Calc 48.54, Est GFR (MDRD) Af Amer 88, Est GFR (MDRD) Non-Af 73, BUN/Creatinine Ratio 16.8, Glucose 98, Calcium 8.8, Prealbumin 25.1 08/26/19 05:20: WBC 15.0 H, RBC 4.64, Hgb 14.1, Hct 43.9, MCV 94.6, MCH 30.4, MCHC 32.1, RDW Std Deviation 49.9 H, RDW Coeff of Carmelo 14.4, Plt Count 289, MPV 10.0 Medical Necessity - Tobacco Use Smoking Status: Current every day smoker Tobacco Use: Cigarettes Assessment/Plan All Active Problems (Last Updated 09/19/18 @ 14:59 by Ladonna Tomlin) Rupture of implant of left breast (Acute) 1 Saline implant rupture left breast. 2. History of submuscular textured saline breast implants. 3. Family history of breast cancer. 4. 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 5. Smoker. 6. s/p removal of textured saline implant left breast and capsulectomy left breast. Patient is resting comfortably. She is tolerating po analgesia. Operative culture is pending. Discharge home today. Followup office one week. Keep head elevated. Maintain linsey wrap compression. Continue lifting restriction. Wrote script for Cefadroxil until the drain is removed in the office. Wrote script for Percocet for pain (30 tabs).
== END 2019-08-26 09:31 | disposition home or self-care (01) ==
LOC: SDC 11:40
PROVIDERS: Admitting Provider Surgery; Family Provider Family Medicine; PCP Family Medicine; Referring Provider Surgery; Visit Provider Surgery
PROC: (CPT 19371; principal; 2019-08-25 09:05)
DX: T85.898A Other specified complication of other internal prosthetic devices, implants and grafts, initial encounter (principal); T85.44XA Capsular contracture of breast implant, initial encounter; Y81.2 Prosthetic and other implants, materials and accessory general- and plastic-surgery devices associated with adverse incidents; Z80.3 Family history of malignant neoplasm of breast; F17.210 Nicotine dependence, cigarettes, uncomplicated; F41.9 Anxiety disorder, unspecified; F32.9 Major depressive disorder, single episode, unspecified; Z79.899 Other long term (current) drug therapy; E78.00 Pure hypercholesterolemia, unspecified
CPT/HCPCS: 19371; 36415; 80048; 82962; 84134; 85027; 87015; 87070; 87075; 87102; 87116; 87205; 87206; 88305; 94762; 96365; 96366; 96372; 99218; 99251; J7120; G0378; G0379; G0463; J2405

== ENCOUNTER → 2019-09-12 09:05 | Outpatient (CLI) | payer MEDICARE, MEDICAID, SELFPAY ==
[2019-08-25 12:55] VITALS: BMI 22.1
[2019-08-31 13:18] VITALS: BMI 22.1
[2019-09-12 10:08] LABS: Hematocrit 48.2 % (37-47); Hemoglobin 15.8 g/dL (12.0-15.0); Mean Corp Hgb Conc 32.8 g/dL (32-36); Mean Corpuscular Hgb 30.1 pg (27.0-32.0); Mean Corpuscular Volume 91.8 fL (81-99); Mean Platelet Vol. 9.9 fl (6.2-12.0); Platelet Count 423 K/mm3 (150-450); RBC Distribution Width CV 14.1 % (11.6-14.6); Red Blood Count 5.25 M/mm3 (4.2-5.4); White Blood Count 9.9 K/mm3 (4.4-11.0)
== END ==
PROVIDERS: Family Provider Family Medicine; PCP Family Medicine; Referring Provider Surgery; Visit Provider Surgery
DX: T85.898A Other specified complication of other internal prosthetic devices, implants and grafts, initial encounter (principal); T85.44XA Capsular contracture of breast implant, initial encounter; Y81.2 Prosthetic and other implants, materials and accessory general- and plastic-surgery devices associated with adverse incidents
CPT/HCPCS: 36415; 85027

== ENCOUNTER → 2020-06-27 08:45 | Outpatient (CLI) | payer MEDICARE, MEDICAID, SELFPAY ==
[2020-06-17 15:09] VITALS: BMI 22.1
--- NOTE | 2020-06-27 08:46 | BI_ITS ---
MAMMOGRAPHY - BILATERAL DIAGNOSTIC REASON FOR EXAM: Female, 65 years old. Right implant rupture. Prior left implant rupture and removal. PERTINENT HISTORY: Sister with breast cancer. TECHNIQUE: Digital bilateral breast brenton (3D mammographic acquisition) in the CC and MLO projections. 2-D mediolateral oblique (MLO) and craniocaudad (CC) views of both breasts were obtained. CAD: Full Field Digital Mammography with Computer Added Detection was performed. COMPARISON: Comparison is made with prior study dated 11/01/2018 and 05/26/2017. FINDINGS: Breast Composition: There are scattered areas of fibroglandular density. The left breast implant has been removed surgically. There now is evidence of retraction of the left alveolar complex with overlying skin thickening. There now is evidence of a 1.7 cm x 1.4 cm irregular nodular density in the upper deep lateral portion of the left breast. Correlation with ultrasound is recommended. No other significant abnormalities are identified. BI/DIAG MAMM W/CAD, BILAT IMPRESSION: Status post rupture of the right breast implant and removal of the left breast implant with postoperative changes in the breasts as described. Correlation with ultrasound the left breast is recommended. ASSESSMENT CATEGORY: BIRADS Category 0: Incomplete. Need additional imaging evaluation. A letter regarding these results will be sent to the patient by the facility within 30 days. Approximately 10% of breast cancers are not detected by mammography. A normal mammogram should not delay biopsy of a clinically suspicious abnormality. Electronically Signed: Osbaldo Herzog, at 10:35 EDT , Service support ,
--- NOTE | 2020-06-27 09:37 | US_ITS ---
STUDY: ULTRASOUND BREAST - LEFT REASON FOR EXAM: Female, 65 years old. Abnormal screening mammogram. TECHNIQUE: Axial and longitudinal images of the LEFT breast were performed with a high resolution ultrasound transducer. # OF IMAGES: 21 COMPARISON: Comparison is made with prior mammogram done earlier in the day. FINDINGS: LEFT Breast: There is a 1.9 cm x 1.4 cm x 1.5 cm irregular heterogeneous mass at the 1 o''clock position of the breast at 4 cm from the nipple. Increased flow is seen within it. Focal calcifications. A biopsy recommended for further evaluation. US/Breast Limited Unilateral IMPRESSION: 1.9 cm x 1.4 cm x 1.5 cm irregular heterogeneous nodule at the 1 o''clock position of the breast at 4 cm from nipple. A biopsy is recommended. ASSESSMENT CATEGORY: BIRADS Category 4: Suspicious - Biopsy Should Be Considered. A letter regarding these results will be sent to the patient by the facility within 30 days. Electronically Signed: Osbaldo Herzog, at 15:37 EDT , Service support ,
== END ==
PROVIDERS: PCP Family Medicine; Referring Provider Surgery; Visit Provider Surgery
DX: T85.43XA Leakage of breast prosthesis and implant, initial encounter (principal); N63.21 Unspecified lump in the left breast, upper outer quadrant; Z98.82 Breast implant status; Z80.3 Family history of malignant neoplasm of breast
CPT/HCPCS: 76642; 77062; 77066; G0279

== ENCOUNTER → 2020-07-10 | Outpatient (CLI) | payer MEDICARE, MEDICAID, SELFPAY ==
--- NOTE | 2020-07-10 | IMM_PTH ---
PATIENT: SEVEN MOORE LOC: JULIANA U#:[id number] AGE/SX: 65/F ROOM: RE07/10/[address]: Dr. Ruddy Qureshi MD : 1955 BED: DIS: 07/10/2020 SPEC #: [id number] RECD: 07/11/20 12:48 STATUS: YVETTE REQ #: [id number] NISHI: 07/10/20 00:[address]: Ruddy Qureshi DEPT: IMMUNOHISTOCHEMISTRY RECD BY: Slime Kennedy ENTERED: 07/11/20 12:50 SP TYPE: IMMUNO OTHR DR: Dr. Eder Duque MD Tissues: Left breast, NOS Procedures: CALPONIN-1 (add) CK5-6 (add) E-CAD (add) HER2 GEORGINA (add) KI-67 (add) P53 (add) MT (add) IN SITU HYBRIDIZATION P40 (add) ER (initial) PHYSICIAN & INSTITUTION [place] [id number] SPECIMEN INFORMATION: Tissue Source: Left breast Clinical Info: Abnormal mammogram Specimen Number: [id number] CPT code: 28803, 67420 x6, 03442 x3 METHODOLOGY: Deparaffinized sections of prefer/formalin-fixed tissue or PAP/DQ stained slides are incubated with monoclonal/polyclonal antibodies/oligonucleotide probes. Localization is made via biotin free immunoperoxidase method. Appropriate controls are performed and reacted as expected. Results on target cell population are indicated in the following table: RESULTS: ANTIBODY / CLONE RESULT E-Cad (ECH-6) positive CK8 (64plouO09) positive Calponin-1 (UJ669P) negative CK5-6 (D5 & 1684) positive, focal P40 (BC28) negative P53 (DO-7) negative Ki-67 (30-9) positive, moderate MORPHOMETRIC ANALYSIS ER (clone 6F11) 0% MT (clone 16/1E2) 0% Her-2Neu (clone CB11) 2+ The prognostic test for HER2 is performed on formalin-fixed paraffin embedded tissue. A 3+ (positive) staining pattern is defined as intense, homogeneous, complete, circumferential membranous staining in >10% of contiguous tumor cells. A similar weak (2+) staining pattern is interpreted as equivocal. ZENIA follow-up testing is recommended for all equivocal cases. Positivity/negativity for ER/MT is reported if > or < 1% of the tumor cells are immuno- reactive, respectively. The ASCO/CAP criteria is used for scoring. Reference: Journal of Clinical Oncology, 2013; 31:4092-1716 & 2010; 16:8373-8347. Duration of fixation: 10.5 Hrs; Sample Adequate: Yes. These assays have not been validated on decalcified tissues. Results should be interpreted with caution given the likelihood of false negativity on decalcified specimens. These tests were developed and their performance characteristics determined by [facility]. They may not have been cleared or approved by the U.S. Food and Drug Administration. The FDA has determined that such clearance or approval is not necessary. The above immunohistochemical/dualISH markers are ordered and reviewed by the Pathologist. 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 Negative for estrogen receptors (unfavorable prognostic indicator). Negative for progesterone receptors (unfavorable prognostic indicator). Equivocal for overexpression of MTQ5guy. 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 Interpretative Information: The INFORM HER2 Dual ZENIA DNA Probe Cocktail assay is performed on formalin-fixed paraffin embedded tissue and determines HER2 gene status by detecting HER2 copies via silver in situ hybridization (SISH) and Chromosome 17 copies via chromogenic red in situ hybridization on tumor cells. A minimum of 20 cells representing > 10% of contiguous and homogeneous invasive tumor cells were analyzed. HER2 gene status is classified as Non-amplified (HER2/Chr17 ratio < 2.0) or Amplified (HER2/Chr17 ratio greater than or equal to 2.0). If the resulting HER2/Chr17 ratio falls within 1.8 - 2.2 (Borderline), retesting by FISH is recommended. Reference: Tien AC, Yobani BLANKENSHIPH, Dong DG, et al: Recommendations for Human Epidermal Growth Factor Receptor 2 Testing in Breast Cancer: [place] Society of Clinical On[employer] / College of [place] [employer] Clinical Practice Guideline Update. J Clin Oncol 31:6935-4105, 2013. SJ:elly 07/17/20
--- NOTE | 2020-07-10 09:00 | BRBX_PTH ---
PATIENT: SEVEN MOORE [facility] U[facility][id number] AGE/SX: 65/F ROOM: RE07/10/[address]: Dr. Ruddy Qureshi MD : 1955 BED: DIS: 07/10/2020 SPEC #: [id number] RECD: 07/10/20 09:46 STATUS: YVETTE REQ #: [id number] NISHI: 07/10/20 09:[address]: Ruddy Qureshi DEPT: SURGICAL PATHOLOGY RECD BY: Sunshine Cevallos ENTERED: 07/10/20 10:38 SP TYPE: BREAST BX OTHR DR: MD Dr. 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 See comment. LALO:elly 07/11/20 COMMENT The tumor shows extensive dense fibrosis. Immunohistochemistry ([id number]) supports the above diagnosis. ER/MT/Yfp6lgc studies are being performed on sections of tumor and the results from this study will be reported separately ([id number]). Please make reference to previous specimen ([id number]) breast implant capsule, excision with diagnosis of breast tissue with fibrocystic changes and associated Banal microcalcifications and focal intraductal hyperplasia without atypia and capsular tissue with fibrosis, foreign body giant cell cells and mild chronic inflammation. MICROSCOPIC DESCRIPTION Slides are reviewed. GROSS DESCRIPTION Received in fixative is one container labeled with the patient name and designated left breast biopsy. The specimen consists of an elongated fragment of chen-yellow fibroadipose tissue measuring 1.5 cm in length and 0.1 cm in diameter. The entire specimen is submitted in one cassette. / LALO:elly 07/10/20 TC:0 [facility]: [id number]
== END | disposition home or self-care (01) ==
LOC: LABSPEC 10:16
PROVIDERS: PCP Family Medicine; Visit Provider Surgery
DX: C50.912 Malignant neoplasm of unspecified site of left female breast (principal); Z17.1 Estrogen receptor negative status [ER-]
CPT/HCPCS: 88305; 88341; 88342; 88368

== ENCOUNTER 2020-07-23 08:07 | Day surgery (SDC) | payer MEDICARE, MEDICAID, SELFPAY ==
--- NOTE | 2020-07-19 09:48 | EKG12_ITS ---
Test Reason : PRE OP Blood Pressure : / mmHG Vent. Rate : 077 BPM Atrial Rate : 077 BPM P-R Int : 160 ms QRS Dur : 070 ms QT Int : 366 ms P-R-T Axes : 073 066 063 degrees QTc Int : 414 ms Normal sinus rhythm Nonspecific ST and T wave abnormality Abnormal ECG Confirmed by MIRIAN HAMILTON, JL ([id number]), tape editor MARIAMA CARVALHO ([id number]) on 07/22/2020 2:32:37 PM Referred By: Ruddy Qureshi Confirmed By:GREYSON VELA MD
[2020-07-19 10:30] LABS: Hematocrit 49.6 % (37-47); Hemoglobin 16.1 g/dL (12.0-15.0); Mean Corp Hgb Conc 32.5 g/dL (32-36); Mean Corpuscular Hgb 30.3 pg (27.0-32.0); Mean Corpuscular Volume 93.4 fL (81-99); Mean Platelet Vol. 10.2 fl (6.2-12.0); Platelet Count 356 K/mm3 (150-450); RBC Distribution Width CV 13.8 % (11.6-14.6); RBC Distribution Width SD 47.1 fl (35.1-43.9); Red Blood Count 5.31 M/mm3 (4.2-5.4); White Blood Count 8.1 K/mm3 (4.4-11.0)
[2020-07-23] VITALS (8 sets, daily range): BP systolic 132–151; BP diastolic 81–106; PULSE 75–86; RESP 16; TEMP 36.1–37; O2SAT 93–97; BMI 22.5
--- NOTE | 2020-07-23 | IMM_PTH ---
PATIENT: SEVEN MOORE LOC: [facility] [place] U#:[id number] AGE/SX: 65/F ROOM: RE07/23/[address]: Dr. Ruddy Qureshi MD : 1955 BED: DIS: 07/23/2020 SPEC #: [id number] RECD: 07/26/20 14:01 STATUS: YVETTE REQ #: [id number] NISHI: 07/23/20 00:[address]: Ruddy Qureshi DEPT: IMMUNOHISTOCHEMISTRY RECD BY: Slime Kennedy ENTERED: 07/26/20 14:02 SP TYPE: IMMUNO OTHR DR: Dr. Eder Duque MD Tissues: A - Axillary lymph node, NOS B - Axillary lymph node, NOS Procedures: CK7 (add) Pankeratin (initial) PHYSICIAN & INSTITUTION [place] [id number] SPECIMEN INFORMATION: Tissue Source: A - Bath lymph node, biopsy, B - Axillary lymph node biopsy Clinical Info: Malignant neoplasm of upper outer quadrant left breast, ER positive Specimen Number: [id number] A1 & B CPT code: 10091 x2, 27322 x2 METHODOLOGY: Deparaffinized sections of prefer/formalin-fixed tissue or PAP/DQ stained slides are incubated with monoclonal/polyclonal antibodies/oligonucleotide probes. Localization is made via biotin free immunoperoxidase method. Appropriate controls are performed and reacted as expected. Results on target cell population are indicated in the following table: RESULTS: ANTIBODY / CLONE RESULT Block A1 AE1-3 (AE1/AE3/PCK26) negative CK7 (OV-TL12/30) negative Block B AE1-3 (AE1/AE3/PCK26) negative CK7 (OV-TL12/30) negative These tests were developed and their performance characteristics determined by [facility]. They may not have been cleared or approved by the U.S. Food and Drug Administration. The FDA has determined that such clearance or approval is not necessary. The above immunohistochemical/dualISH markers are ordered and reviewed by the Pathologist. INTERPRETATION: A. Bath lymph node, biopsy: One lymph node, negative for metastatic carcinoma. B. Axillary lymph node, biopsy: Two out of two lymph nodes, negative for metastatic carcinoma. SJ:elly 07/29/20
--- NOTE | 2020-07-23 | AXNB_PTH ---
PATIENT: SEVEN MOORE LOC: [facility] [place] U#:[id number] AGE/SX: 65/F ROOM: RE07/23/[address]: Dr. Ruddy Qureshi MD : 1955 BED: DIS: 07/23/2020 SPEC #: [id number] RECD: 07/23/20 12:10 STATUS: YVETTE REQ #: [id number] NISHI: 07/23/20 00:[address]: Ruddy Qureshi DEPT: SURGICAL PATHOLOGY RECD BY: Slime Kennedy ENTERED: 07/23/20 12:34 SP TYPE: AX NODE BX OTHR DR: Dr. Eder Duque MD Tissues: A - Axillary lymph node, NOS B - Axillary lymph node, NOS C - Left breast, NOS Procedures: Frozen Section (charge) Frozen Section [facility] Surgery Specimen Level V Surgery Specimen Level HEADER OPERATION: Mastectomy, sentinel lymph node biopsy, radiotracer PRE-OP DIAGNOSIS: Malignant neoplasm of upper outer quadrant left breast, ER negative TISSUE SUBMITTED: A - Cosmos node, FS at 1206, B - Axillary lymph node, FS at 1206, C - Left breast tissue FROZEN SECTION DIAGNOSIS A. Cosmos lymph node, biopsy: One out of two lymph nodes, positive for metastatic carcinoma. B. Axillary lymph node, biopsy: Two out of two lymph nodes, negative for metastatic carcinoma. LALO:elly 07/23/20 MICROSCOPIC DIAGNOSIS A. Cosmos lymph node, biopsy: One out of two lymph nodes, positive for metastatic carcinoma. See comment. B. Axillary lymph node, biopsy: Two out of two lymph nodes, negative for metastatic carcinoma. See comment. C. Left breast, mastectomy: Invasive ductal carcinoma. See cancer summary in the comment section. LALO:elly 07/26/20 COMMENT A. Immunohistochemistry ([id number]) performed on block A1 and is negative for metastatic carcinoma. Metastatic focus of carcinoma measures 0.5 cm in greatest dimension. Focal extranodal extension is noted (0.2 cm in greatest dimension). B. The lymph nodes are negative for metastatic carcinoma on multiple H & E levels and immunohisto- chemical stains for cytokeratins ([id number]). INVASIVE BREAST CANCER SUMMARY Procedure - total mastectomy Specimen laterality - left Invasive tumor: Tumor site - upper outer quadrant Tumor size - 1.9 x 1.9 x 1.5 cm Histologic type - invasive ductal carcinoma Histologic grade (Madelin grade): Glandular/tubular differentiation score - 3 Nuclear pleomorphism score - 3 Mitotic count score - 2 Overall grade - grade 3 (score of 8) Tumor focality - single focus of invasive carcinoma. Ductal Carcinoma In Situ - present Size (extent) of DCIS - DCIS comprise about 5-10% of total tumor volume. Number of blocks with DCIS - 3 Number of blocks examined - 16 Architecture pattern - solid and comedo Nuclear grade - grade 3 (high) Necrosis - present, central (expansive comedo necrosis) Lobular carcinoma in situ - No lobular carcinoma in situ is present. Tumor extension: Skin - present and uninvolved Nipple - DCIS does not involve the nipple epidermis. Skeletal muscle - present and free of carcinoma. Margins - Uninvolved by invasive carcinoma and ductal carcinoma in situ. Invasive carcinoma and ductal carcinoma in situ are 1 cm away from the closest posterior margin. Regional Lymph Nodes: Total number of lymph nodes examined - 4 Number of sentinel lymph nodes examined - 2 Number of lymph nodes with macrometastasis - 1. Number of lymph nodes with micrometastasis and isolated tumor cells -0 Size of largest metastatic deposit: 5 mm Extranodal extension - present, Extent of extranodal extension - 2 mm Treatment effect - no known presurgical therapy. Lymphvascular invasion - not identified Dermal lymphvascular invasion - not identified Additional Pathologic Findings - fibrocystic changes and adenosis. Hyalinized fibroadenomas x2 (0.4 and 0.5 cm in greatest dimension. Ancillary Studies: Previously performed on same tumor ([id number] / [id number]) ER: negative (0%) AR: negative (0%) Den3hxq: equivocal (2+) Sve2ldp by dualISH: negative / not amplified (polysomy of chromosome of 17 is noted). Microcalcifications - present in DCIS, invasive carcinoma and in non-neoplastic tissue. Clinical History - Please make reference to previous specimen ([id number]) left breast, ultrasound-guided needle core biopsy with diagnosis of invasive ductal carcinoma. Radiologic findings: abnormal mammogram Pathologic Stage: pT1c pN1A pMx The above summary is in compliance with [employer] [employer] (CAP) Cancer Protocols Checklist and [place] [employer] Committee on Cancer (AJCC), Staging Manual, 8th Ed. MICROSCOPIC DESCRIPTION Slides are reviewed. GROSS DESCRIPTION A - Received fresh for frozen section diagnosis labeled with the patient's name is a specimen designated sentinel lymph nodes. The specimen consists of a piece of chen-yellow adipose tissue containing two nodules consistent with lymph nodes measuring 3 x 2 x 1 cm. The lymph nodes measure 0.5 x 1 cm in greatest dimension. The lymph nodes are submitted in entirety for frozen section diagnosis as follows: 1??one lymph node, 2 - one bisected lymph node. / : 07/23/20 B - Received fresh for frozen section diagnosis labeled with the patient's name is a specimen designated axillary lymph nodes. The specimen consists of a piece of adipose tissue measuring 2 x 1.5 x 0.7 cm. Two nodules consistent with lymph nodes are identified each measuring 0.5 cm in greatest in dimension. The lymph nodes are submitted for frozen section diagnosis in entirety in one cassette. / :rg 07/23/20 C - Received in fixative is one container labeled with the patient's name and designated left breast. The specimen consists of a mastectomy specimen consisting of breast tissue with overlying skin ellipse. The breast tissue measures 18.5 x 17.5 x 3 cm. The overlying skin ellipse measures 15 x 5 cm. The nipple measures 0.9 cm in greatest dimension. It appears to be retracted. Blue dye discoloration is noted on the surface. No skin lesion is identified. The specimen is inked as follows: posterior - black, superior - blue, inferior - green, medial - red and lateral - orange. A focal area of skeletal muscle tissue is noted in the posterior surface. It is inked yellow. Serial sections reveal chen, indurated nodule in the upper outer quadrant of the breast measuring 1.9 x 1.9 x 1.5 cm. This mass is 1 cm away from the closest posterior margin. Sections of the rest of the specimen reveal chen-yellow adipose cut surfaces mixed with chen-white fibrous areas. More dictation will follow after overnight fixation. / LALO:elly 07/23/20 Hadoop Infrastructure Architect sections are submitted in 15 cassettes as follows: 1 - lymph node, entirely submitted, 2??perpendicular medial, lateral margins and skin, 3 - perpendicular superior and inferior margins, 4??perpendicular posterior margin including skeletal muscle tissue, 5-8 - tumor, 9-11 - outside energy sales representatives sections adjacent to the tumor, 12-15 - outside energy sales representatives sections away from the tumor. Sections will be submitted after additional fixation. / Lauri 07/24/20 TC:0 CPT: 14891 x2, 11980, 83601 x2, 48883
--- NOTE | 2020-07-23 08:31 | HP_ITS ---
Intake Intake Visit Reasons: ONE WEEK F/U LEFT BREAST BIOPSY Chief Complaint: Follow up left breast biopsy 07/10 Javascript Front End Developer Required: No Accompanied by: Niece Is patient in pain?: No Allergies No Known Allergies Allergy (Verified 07/16/20 10:01) Medications alprazolam 0.5 mg tablet 0.5 mg PO BID-TID PRN 09/19/18 [History Confirmed 07/16/20] Cholecalciferol (Vitamin D3) [Vitamin D3] 5,000 unit PO DAILY 12/16/18 [History Confirmed 07/16/20] Bupropion HCl [Wellbutrin Xl] 150 mg PO DAILY 08/18/19 [History Confirmed 07/16/20] [facility] Medical History Left breast mass (Chronic) Rupture of implant of right breast (Acute) Breast implant removal status (Acute) Capsular contracture of breast implant (Chronic) Disproportion of reconstructed breast (Chronic) Basal cell carcinoma (BCC) of skin of left breast (Chronic) 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 (Chronic) Rupture of implant of left breast (Acute) Breast cancer, left (Acute) Surgical History H/O section (Acute) H/O: hysterectomy (Acute) History of left breast biopsy (Acute ~07/10/20) Hx of breast implants, bilateral (Acute) History of basal cell carcinoma excision (Chronic) Hx of breast surgery (Chronic) Family History Father Cancer Brother Cancer Sister Cancer Breast cancer Diabetes Mother Hypertension Social History (Updated 07/16/20 @ 12:[address] Ruddy Qureshi MD) Smoking Status: Current every day smoker HPI HPI Surgical H&P: Yes HPI: SEVEN MOORE, is a 65 F who presents to the office today for Follow-up from an ultrasound-guided left needle core breast biopsy. On 07/10/2020 she underwent a ultrasound-guided left needle core biopsy. 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 1 cm in greatest length. It was ER receptor negative. HER-2/dahiana 2+ positive. She recently had a mammogram and ultrasound which showed this lesion at the 1 o'clock position approximately 4 cm from the nipple. Prior to her surgery to remove the implant on the left side she did not feel this area. In reviewing her mammograms from 2019 nothing was seen. Patient is a 65 year old female presents for evaluation of recent deflation of her right breast textured saline implant. She believes her right breast implant ruptured a few weeks ago. She denies any trauma to her breasts. She states it started out as a small dimpling on her right breast and the next day it spontaneously flattened. She had saline implants placed at [facility] in [address] Webb. They no longer have her records from the time of surgery. They were placed under the muscle and she thinks they were 350 ml implants. They were textured implants. She had her left breast saline implant removed 08/25/19 after it ruptured. Her insurance denied her having both implants removed at that time, just the ruptured one. She denies any pain or discomfort at this time. She does have a positive family history of breast cancer from her sister and aunt. Her last mammogram was over a year ago on 11/01/18. She also had an erythematous lesion on her left medial breast by the sternum that was removed 12/23/18 and was a basal cell carcinoma and was reconstructed with a rhomboid transposition skin graft. ROS General General: Yes fatigue; no weight change, appetite, colon cancer, breast cancer or weakness HEENT HEENT: No difficulty swallowing, eye injury, eye surgery, swollen glands or hoarseness Endo Endocrine: No thyroid disease, diabetes mellitus, thyroid cancer, Hair loss, heat intolerance or cold intolerance Breast Breast: No left breast lump, right breast lump, nipple discharge, breast pain, abnormal mammogram, abnormal US or breast enlargement Musc Musculoskeletal: Yes back problems; no arthritis, rheumatoid arthritis, gout or joint pain Cardio Cardiovascular: No murmur, pacemaker, heart disease, atrial fibrillation, high blood pressure, heart attack, heart stent, palpitations, shortness of breat with exertion or chest pain Psych Psychiatric: Yes depression and anxiety; no hearing voices Resp Respiratory: No shortness of breath, No sleep apnea, No cough, No COPD, No asthma, No emphysema, No wheezing Gastro Gastrointestinal: No abdominal pain, No nausea or vomiting, No diarrhea, No constipation, No blood in stool, No acid reflux, Yes hemorrhoids, No ulcers, No gallbladder problem, No black,tarry stools Juan Hematologic: No blood thinners, No blood disorders, No bleeding, No anemia, No blood clots Neuro Neurologic: No weakness Exam Const General: no acute distress, well developed, well hydrated Orientation: oriented to person, oriented to place, oriented to time [facility] Head: normocephalic, atraumatic Ears: external ears normal Mouth: moist mucous membranes Eyes Sclera: sclerae normal Pupils: normal by confrontation Neck Neck: no lymphadenopathy noted Neck mass: No Thyroid: thyroid normal, symmetrical Chest Chest palpation & inspection: normal inspection of the chest Breast inspection: normal inspection of the breasts Breast Palpation: No nipple discharge Other: Palpation of the right breast reveals Negative. Palpation of the left breast reveals Biopsy site is clean without signs of infection.. Axillary exam demonstrates no suspicious masses in either the left or right axilla. Resp Effort & Inspection: normal respiratory effort Auscultation: clear to auscultation bilaterally Percussion: percussion normal Cardio Rate: regular rate Rhythm: regular rhythm Heart Sounds: no murmurs GI Palpation: soft, no hepatosplenomegaly, no masses, nontender Rectal Exam: other Other: Rectal exam deferred. Extrem General: normal to inspection, no clubbing, cyanosis or edema Assessment & Plan Problems 1. Malignant neoplasm of upper-outer quadrant of left breast in female, estrogen receptor negative C50.412; Z17.1 Plan I have given the patient options for initial surgical treatment. Options are the following: lumpectomy followed by radiation therapy vs. mastectomy vs. mastectomy followed by immediate reconstruction. I have described the procedures to the patient. I have described the advantages and disadvantages of the options, but I have told the patient that among the options, the survival rate for breast cancer is the same. I have told the patient that with all the surgeries that a sentinel lymph node biopsy is required. I have described the procedure of sentinel lymph node biopsy to the patient. I have told the patient that if the biopsy is positive for metastatic disease, then a full axillary lymph node dissection is required. I have told the patient that adjuvant chemotherapy will be required should the lymph nodes reveal metastatic disease. Also, a full lymph node dissection will increase the risk for lymphedema, especially if there are 4 or more lymph nodes positive for metastatic disease and radiation to the axilla is also required. I have told the patient the risks of surgery, including but not limited to: infection, bleeding, scar tissue, seroma and persistent seroma, lymph leak, injury to any blood vessels, injury to any nerves (particularly the long thoracic, the thoracodorsal, and the second intercostal brachial and the resultant sequelae), lymphedema, cosmetic deformity, dysesthesias, wound infections, further surgery (especially if margins are not clear), complications of anesthesia, etc. the patient understands. The patient will think about the options and discuss it further with the family. The patient will contact me in the next few days when she decides what the patient wishes to do. I have answered all the patient?s questions at this point to her satisfaction and she has no further questions. The patient has opted for a left-sided mastectomy with sentinel lymph node biopsy. At this point since we are trying to do this in an outpatient fashion we will not do any surgeries on the right breast. She will be able to have this removed At a later date. Coding Level of Care Code Off vis,est,level 3 Diagnoses Malignant neoplasm of upper-outer quadrant of left breast in female, estrogen receptor negative C50.412; Z17.1 ??Breast location: upper outer quadrant of breast ??Estrogen receptor status: negative COVID (Procedure Consent) Procedure Criteria Procedure Criteria: Yes Elective The surgeon/proceduralist and patient have discussed in detail the risk of exposure to and/or potential harm posed by the COVID-19 virus with having a surgery/procedure at this time versus the risk of? delaying the surgery/procedure. It is not possible to know either the risk of delaying the surgery or procedure or chance of getting an infection with perfect accuracy, but a joint decision was made between the patient and the surgeon/proceduralist ?to proceed at this time with the scheduled surgery/procedure as indicated on the consent form. I have re-examined the patient. There are no clinical changes since date of exam.
--- NOTE | 2020-07-23 08:55 | NM_ITS ---
PROCEDURE: NUCLEAR MEDICINE Injection [place] Node - LEFT breast(s). REASON FOR EXAM: Female, 65 years old. Left breast cancer. TECHNIQUE: [place] node localization using radionuclide methods of the LEFT breast(s) was performed following subcutaneous administration of 1.1 mCi of of sulfur colloid Tc-99m. FINDINGS: 1.1 mCi of technetium labeled sulfur colloid was injected subcutaneously at the biopsy site in 4 equal aliquots. NM/Lymph Node Injection Only IMPRESSION: Subcutaneous injection of 1.1 mCi of technetium labeled sulfur colloid for left sentinel node imaging. Electronically Signed: Osbaldo Herzog, at 10:10 EST , Service support ,
[2020-07-23] MEDS: Lactated Ringers 1,000 ML 100 ML IV (09:19)
[2020-07-23] MEDS: Cefazolin 2 GM in 0.9% Normal Saline 100 ML IV (11:00)
--- NOTE | 2020-07-23 12:18 | PCM.OPRPT ---
Problem List (1) Cancer of left breast Status: Acute Qualifiers: Breast location: upper outer quadrant of breast Estrogen receptor status: positive Patient sex: female Qualified Code(s): C50.412 - Malignant neoplasm of upper-outer quadrant of left female breast; Z17.0 - Estrogen receptor positive status [ER+] Report of Operation Date of Procedure: 07/23/20 Pre-Operative Diagnosis: Female breast cancer left upper outer quadrant Post-Operative Diagnosis: Same Surgery/Procedure Performed:: 1. Injection of 10 cc of 0.5% methylene blue. 2. Left breast mastectomy. 3. Left breast sentinel lymph node biopsy Type of Anesthesia:: General Anesthesiologist: Ivan Teixeira Specimen's removed: 1. Left breast. 2. Left axillary sentinel lymph nodes x3 Drains: Two round #15 Giacomo-Waddell's Estimated Blood Loss (mL): 25 cc Fluids Replaced: 1000cc LR Description of Procedure: Patient was brought into the operating room. Placed in the supine position. Under excellent general trach intubation 10 cc of methylene blue was injected circumareolar the on the left side. The left breast and axillary area were then sterilely prepped and draped in usual fashion. Elliptical incision was made around the breast I started medially using the PlasmaBlade and created a flap down to the sternum superiorly to the clavicle inferiorly to the rectus abdominis muscle. I removed the breast from the pectoralis major muscle with the PlasmaBlade. She had a previous pocket where she had a breast implant and so I had to take care as to not actually cutting the pectoralis major muscle here. I was able to go all the way laterally taking the breast off of the lateral edge of the pectoralis major muscle I then came down laterally to the latissimus dorsi muscle and essentially transecting the breast and sending it to pathology for permanent sectioning. I entered the clavipectoral fascia. I immediately identified a blue lymph node and remove this with a harmonic dissector. I checked it with the Evaristo counter it did light up slightly. I then did further dissection in the axillary area and found 2 more lymph nodes which I removed with harmonic dissector these 2 lit up slightly with the Evaristo counter. I inspected the rest of the axilla identified the axillary vein I saw no other blue lymph nodes there was no other hot spots with the [place] counter in the axilla for all intensive purposes felt clean. I irrigated out the wound. The medial edge of the pectoralis major muscle I really attached down to the fascia with 0 Vicryl's. This still left the pocket that had no attachments laterally. I used electrocautery scuffed this pocket up. I placed 2 round 15 Giacomo-Waddell drains into the wound suturing into the skin with 3-0 nylon's. Yessi was placed into the wound. The wound was then brought together with deep dermal stitches of 3-0 Vicryl and then a running 4-0 Monocryl. Dermabond was applied sterile dressings were applied and the patient tolerated the procedure well. The frozen sections came back 1 out of 4 the lymph nodes were positive. I opted not to do any further axillary dissection given the fact that she will more likely receive radiation to the axillary area. - Admit VTE Documentation VTE Present on Admission: No VTE Mechan Device Prophylaxis: SCD's VTE Pharm Prophylaxis ordered?: No Reason prophylaxis not ordered:: Treatment Not Indicated [id number]: [id number] Mast simple complete - [phone], [phone]
[2020-07-23] MEDS: Lactated Ringers 1,000 ML 50 ML IV (12:30)
[2020-07-23] MEDS: Bupivacaine Mpf 0.5% 30 ML VIAL (12:40)
--- NOTE | 2020-07-23 15:13 | DCINST_ITS ---
Discharge Diet: No Restrictions Discharge Activity: May Not Drive - for 2-3 days or while taking narcotic pain meds. May shower in (days): 1 Lifting Restrictions: 10 pounds for 1 week. Call your doctor if your incision/area has: Continuous Slow Oozing, Sudden In creased Bleeding Call your doctor if you observe: Fever of 101 or Higher Suture Line Care: Avoid Pulling/Pushing, Avoid Pinching/Bending Remove Dressing in (days):: 1 - Remove bulky dressing tomorrow. May leave any opsite dressing for 3-4 days[address] Keep dressing in place until your follow-up appointment. Additional Dressing/Incision Instructions:: Remove bulky dressing tomorrow. May leave any opsite dressing for 3-4 days. Keep dressing in place until your follow-up appointment. Allergies/Adverse Reactions: Allergies No Known Allergies Allergy (Verified 07/19/20 08:22) Medications to take at Discharge alprazolam 0.5 mg tablet 0.5 mg PO BID-TID PRN 09/19/18 Cholecalciferol (Vitamin D3) [Vitamin D3] 5,000 unit PO DAILY 12/16/18 Bupropion HCl [Wellbutrin Xl] 150 mg PO DAILY 08/18/19 Primary Care Physician: Rob uDque MD [Primary Care Provider] -
== END 2020-07-23 16:54 | disposition home or self-care (01) ==
LOC: SDC 08:07 → AC 08:07
PROVIDERS: Anesthesiology; PCP Family Medicine; Referring Provider Surgery; Visit Provider Surgery
PROC: (CPT 19307; principal; 2020-07-23 10:45)
DX: C50.412 Malignant neoplasm of upper-outer quadrant of left female breast (principal); Z17.1 Estrogen receptor negative status [ER-]; F32.9 Major depressive disorder, single episode, unspecified; F41.9 Anxiety disorder, unspecified; F17.200 Nicotine dependence, unspecified, uncomplicated; Z78.0 Asymptomatic menopausal state; Z85.828 Personal history of other malignant neoplasm of skin; Z20.828 Contact with and (suspected) exposure to other viral communicable diseases
CPT/HCPCS: 00400; 19303; 38525; 36415; 38792; 85027; 87426; 88305; 88307; 88309; 88331; 88332; 88341; 88342; 93005; A9541; C9803; J7120; A4216; J2405; Q9968

== ENCOUNTER 2020-08-13 12:06 | Day surgery (SDC) | payer MEDICARE, MEDICAID, SELFPAY ==
[2020-07-23 09:00] VITALS: BMI 22.5
--- NOTE | 2020-08-13 07:00 | HP_ITS ---
Intake Intake Visit Reasons: ONE WEEK F/U LEFT BREAST BIOPSY Chief Complaint: Follow up left breast biopsy 07/10 Client Services Assistant Required: No Accompanied by: Niece Is patient in pain?: No Allergies No Known Allergies Allergy (Verified 07/16/20 10:01) Medications alprazolam 0.5 mg tablet 0.5 mg PO BID-TID PRN 09/19/18 [History Confirmed 07/16/20] Cholecalciferol (Vitamin D3) [Vitamin D3] 5,000 unit PO DAILY 12/16/18 [History Confirmed 07/16/20] Bupropion HCl [Wellbutrin Xl] 150 mg PO DAILY 08/18/19 [History Confirmed 07/16/20] [facility] Medical History Left breast mass (Chronic) Rupture of implant of right breast (Acute) Breast implant removal status (Acute) Capsular contracture of breast implant (Chronic) Disproportion of reconstructed breast (Chronic) Basal cell carcinoma (BCC) of skin of left breast (Chronic) 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 (Chronic) Rupture of implant of left breast (Acute) Breast cancer, left (Acute) Surgical History H/O section (Acute) H/O: hysterectomy (Acute) History of left breast biopsy (Acute ~07/10/20) Hx of breast implants, bilateral (Acute) History of basal cell carcinoma excision (Chronic) Hx of breast surgery (Chronic) Family History Father Cancer Brother Cancer Sister Cancer Breast cancer Diabetes Mother Hypertension Social History (Updated 07/16/20 @ 12:[address] Ruddy Qureshi MD) Smoking Status: Current every day smoker HPI HPI Surgical H&P: Yes HPI: SEVEN MOORE, is a 65 F who presents to the office today for Follow-up from an ultrasound-guided left needle core breast biopsy. On 07/10/2020 she underwent a ultrasound-guided left needle core biopsy. 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 1 cm in greatest length. It was ER receptor negative. HER-2/dahiana 2+ positive. She recently had a mammogram and ultrasound which showed this lesion at the 1 o'clock position approximately 4 cm from the nipple. Prior to her surgery to remove the implant on the left side she did not feel this area. In reviewing her mammograms from 2019 nothing was seen. Patient is a 65 year old female presents for evaluation of recent deflation of her right breast textured saline implant. She believes her right breast implant ruptured a few weeks ago. She denies any trauma to her breasts. She states it started out as a small dimpling on her right breast and the next day it spontaneously flattened. She had saline implants placed at [facility] in [address] Webb. They no longer have her records from the time of surgery. They were placed under the muscle and she thinks they were 350 ml implants. They were textured implants. She had her left breast saline implant removed 08/25/19 after it ruptured. Her insurance denied her having both implants removed at that time, just the ruptured one. She denies any pain or discomfort at this time. She does have a positive family history of breast cancer from her sister and aunt. Her last mammogram was over a year ago on 11/01/18. She also had an erythematous lesion on her left medial breast by the sternum that was removed 12/23/18 and was a basal cell carcinoma and was reconstructed with a rhomboid transposition skin graft. ROS General General: Yes fatigue; no weight change, appetite, colon cancer, breast cancer or weakness HEENT HEENT: No difficulty swallowing, eye injury, eye surgery, swollen glands or hoarseness Endo Endocrine: No thyroid disease, diabetes mellitus, thyroid cancer, Hair loss, heat intolerance or cold intolerance Breast Breast: No left breast lump, right breast lump, nipple discharge, breast pain, abnormal mammogram, abnormal US or breast enlargement Musc Musculoskeletal: Yes back problems; no arthritis, rheumatoid arthritis, gout or joint pain Cardio Cardiovascular: No murmur, pacemaker, heart disease, atrial fibrillation, high blood pressure, heart attack, heart stent, palpitations, shortness of breat with exertion or chest pain Psych Psychiatric: Yes depression and anxiety; no hearing voices Resp Respiratory: No shortness of breath, No sleep apnea, No cough, No COPD, No asthma, No emphysema, No wheezing Gastro Gastrointestinal: No abdominal pain, No nausea or vomiting, No diarrhea, No constipation, No blood in stool, No acid reflux, Yes hemorrhoids, No ulcers, No gallbladder problem, No black,tarry stools Juan Hematologic: No blood thinners, No blood disorders, No bleeding, No anemia, No blood clots Neuro Neurologic: No weakness Exam Const General: no acute distress, well developed, well hydrated Orientation: oriented to person, oriented to place, oriented to time [facility] Head: normocephalic, atraumatic Ears: external ears normal Mouth: moist mucous membranes Eyes Sclera: sclerae normal Pupils: normal by confrontation Neck Neck: no lymphadenopathy noted Neck mass: No Thyroid: thyroid normal, symmetrical Chest Chest palpation & inspection: normal inspection of the chest Breast inspection: normal inspection of the breasts Breast Palpation: No nipple discharge Other: Palpation of the right breast reveals Negative. Palpation of the left breast reveals Biopsy site is clean without signs of infection.. Axillary exam demonstrates no suspicious masses in either the left or right axilla. Resp Effort & Inspection: normal respiratory effort Auscultation: clear to auscultation bilaterally Percussion: percussion normal Cardio Rate: regular rate Rhythm: regular rhythm Heart Sounds: no murmurs GI Palpation: soft, no hepatosplenomegaly, no masses, nontender Rectal Exam: other Other: Rectal exam deferred. Extrem General: normal to inspection, no clubbing, cyanosis or edema Assessment & Plan Problems Vascular fitting and adjustment Plan Placement of a right IJ PowerPort. I plan to perform a Right internal jugular port a cath placement. The planned surgical procedure was discussed extensively with the patient. The risks, benefits, anticipated outcomes and possible complication were mentioned. My staff has also explained the procedure in understandable terms and the patient was given the option to take printed material concerning the planned procedure. The patient had the opportunity to ask questions concerning the planned procedure. The patient freely consents to the planned procedure. COVID (Procedure Consent) Procedure Criteria Procedure Criteria: Yes Elective The surgeon/proceduralist and patient have discussed in detail the risk of exposure to and/or potential harm posed by the COVID-19 virus with having a surgery/procedure at this time versus the risk of? delaying the surgery/procedure. It is not possible to know either the risk of delaying the surgery or procedure or chance of getting an infection with perfect accuracy, but a joint decision was made between the patient and the surgeon/proceduralist ?to proceed at this time with the scheduled surgery/procedure as indicated on the consent form. I have re-examined the patient. There are no clinical changes since date of exam.
[2020-08-13 12:40] VITALS: BP 123/85; PULSE 78; RESP 16; TEMP 36.1; O2SAT 99; BMI 22.8
[2020-08-13] MEDS: Lactated Ringers 1,000 ML 100 ML IV (12:57)
--- NOTE | 2020-08-13 14:04 | PCM.DC.POR ---
Discharge Diet: No Restrictions - Pain medication may cause nausea. You should typically eat light foods as you take your pain medication. Discharge Activity: May Shower - with the bandage in place 1-2 days after surgery. DO NOT SHOWER WHEN YOUR PORT IS ACCESSED. Additional Activity Instructions:: May not drive, work with heavy equipment, or sign legal documents for [address] if you are no longer taking narcotic pain medications. You may drive when you are no longer taking pain medications. Additional Dressing/Incision Instructions:: Leave the bandage on for 2-3 days. When you remove the bandage, leave the steri-strips intact until they fall off. Allergies/Adverse Reactions: Allergies No Known Allergies Allergy (Verified 08/13/20 12:40) Medications to take at Discharge alprazolam 0.5 mg tablet 0.5 mg PO BID-TID PRN 09/19/18 Cholecalciferol (Vitamin D3) [Vitamin D3] 5,000 unit PO DAILY 12/16/18 Bupropion HCl [Wellbutrin Xl] 300 mg PO DAILY 08/18/19 Oxycodone HCl/Acetaminophen [Percocet 5/325] 1 - 2 tablet PO Q4H PRN PRN 6 Days #30 tablet 08/13/20 The following prescriptions were given: Oxycodone HCl/Acetaminophen [Percocet 5/325] 1 - 2 tablet PO Q4H PRN PRN 6 Days #30 tablet PRN Reason: Pain Transmission Status: Received by EULA DAVIS [facility] Primary Care Physician: Rob Duque MD [Primary Care Provider] - Test Results: Test results from this visit will be discussed in further detail at your follow-up appointment, if applicable. Please Follow Up With: Ruddy Qureshi MD - [phone] When: Please plan to follow up in 7 days in the office.
[2020-08-13] MEDS: Cefazolin 2 GM in 0.9% Normal Saline 100 ML IV (14:18)
[2020-08-13] MEDS: Bupivacaine Mpf 0.5% 30 ML VIAL (14:35)
[2020-08-13] MEDS: Lidocaine 1% (30 ml sdv) 30 ML Vial (14:35)
--- NOTE | 2020-08-13 14:59 | PCM.OPRPT ---
Problem List (1) Vascular catheter fitting or adjustment Status: Acute Report of Operation Date of Procedure: 08/13/20 Pre-Operative Diagnosis: Vascular fitting and adjustment Post-Operative Diagnosis: Same Surgery/Procedure Performed:: Placement of a right IJ PowerPort Type of Anesthesia:: Local MAC Anesthesiologist: Kirit Brambila Estimated Blood Loss (mL): < 25 cc Description of Procedure: Patient was brought in the operating room. Placed in the supine position. Under excellent MAC anesthetic I ultrasound the right neck identified the internal jugular vein. I marked the neck and chest appropriately. The neck and chest were then sterilely prepped and draped in usual fashion. Local was injected into the neck. Seldinger's technique was used to gain access to the internal jugular vein. Guidewire was placed over the needle the needle was removed. Fluoroscopy was used to confirm proper placement of the guidewire. I injected local under the chest. An incision was made. Electrocautery was used to create a pocket for the port. Skin asha was made in the neck. Dilator and sheath were then placed over the guidewire removing the guidewire and the dilator. Single lumen catheter was placed through the sheath and the sheath was removed. Fluoroscopy was used to confirm proper length. I injected local over the collarbone into the neck and then I tunneled from the port pocket over the collarbone into the neck and brought the catheter down.I cut the catheter to length placed to help locking hub on the catheter of the port under the catheter and secured the tube with a locking hub. It flushed and irrigated well and was flushed with 5 cc of hep flush. It was sutured into the pocket created with 2 sutures of 2-0 Prolene. Skin incisions were closed with deep dermal stitches of 3-0 Vicryl. Dermabond was applied. Sterile dressings were applied. The patient tolerated the procedure well.Patient was transported to the recovery area and a portable chest x-ray was obtained. - Admit VTE Documentation VTE Present on Admission: No VTE Mechan Device Prophylaxis: SCD's VTE Pharm Prophylaxis ordered?: No Reason prophylaxis not ordered:: Treatment Not Indicated - Procedures Cardiovascular CF Procedures [id number]: [id number] Insert tunneled cv cath - + [id number], [id number]
--- NOTE | 2020-08-13 15:02 | RAD_ITS ---
STUDY: X-RAY CHEST REASON FOR EXAM: Female, 65 years old. Post op port placement. TECHNIQUE: Single AP portable view of the chest. COMPARISON: None. FINDINGS: A right-sided Port-A-Cath has been placed. The tip is in the proximal portion of the superior vena cava. Hyperinflation. The lungs are clear. There is no demonstrated pleural abnormality. Normal size heart. Normal mediastinum and carlos. Normal visualized pulmonary arteries. Normal visualized aortic arch and descending thoracic aorta. Normal visualized thoracic spine. Normal visualized ribs, clavicles, and shoulders. There is no demonstrated abnormality of the visualized soft tissue structures of the upper abdomen. RAD/CXR for Line Placement IMPRESSION: The tip of the right-sided portacatheter is in the proximal portion of the superior vena cava. Electronically Signed: Osbaldo Herzog, at 15:25 EST , Service support ,
[2020-08-13 15:03] VITALS: BP 107/76; BP 123/85; PULSE 72; RESP 16; TEMP 36.7; O2SAT 95
[2020-08-13 15:05] VITALS: BP 105/82; BP 123/85; PULSE 67; RESP 16; O2SAT 95
[2020-08-13 15:10] VITALS: BP 123/85; BP 98/71; PULSE 65; RESP 16; O2SAT 95
[2020-08-13 15:15] VITALS: BP 103/72; BP 123/85; PULSE 68; RESP 16; TEMP 36.7; O2SAT 96
[2020-08-13 15:49] VITALS: BP 102/74; BP 123/85; PULSE 66; RESP 16; TEMP 36.6; O2SAT 97
== END 2020-08-13 16:14 | disposition home or self-care (01) ==
LOC: SDC 12:07 → AC 12:08
PROVIDERS: PCP Family Medicine; Referring Provider Surgery; Visit Provider Surgery
PROC: (CPT 36561; principal; 2020-08-13 14:15)
DX: Z45.2 Encounter for adjustment and management of vascular access device (principal); C50.412 Malignant neoplasm of upper-outer quadrant of left female breast; Z17.1 Estrogen receptor negative status [ER-]; F32.9 Major depressive disorder, single episode, unspecified; F41.9 Anxiety disorder, unspecified; Z85.828 Personal history of other malignant neoplasm of skin; Z87.891 Personal history of nicotine dependence; Z20.828 Contact with and (suspected) exposure to other viral communicable diseases
CPT/HCPCS: 00532; 36561; 71045; 77001; 87426; C9803; J7120; C1788

== ENCOUNTER 2020-09-27 16:55 | Observation (INO) | payer MEDICARE, MEDICAID, SELFPAY ==
[2020-09-27 16:55] VITALS: BP 125/74; PULSE 117; RESP 20; TEMP 36.3; O2SAT 97; BMI 22.2
[2020-09-27 16:57] VITALS: BP 125/74; PULSE 117; RESP 20; TEMP 36.3; O2SAT 97
--- NOTE | 2020-09-27 18:01 | ED.VIS.GEN ---
History of Present Illness Chief Complaint: Fever Informant: Patient Narrative: Patient is a 65-year-old female with a past medical history of breast cancer currently undergoing chemotherapy. She has received 3 doses so far and she gets this every 2 weeks. Today she developed a fever. She states that it was fluctuating but the most got up to was 100.7. She has not taken anything for this. She started develop mouth and throat soreness yesterday. She has pain at the angles of her mouth. She states that it hurts to swallow and open her mouth. She has had this before but resolved very quickly. She is also complaining of some pain at the right thumb nail base. She states yesterday was difficult to move but this since resolved but is still mildly swollen. She denies picking at the nail. She did call her oncologist office and she was referred to the emergency department. She denies any known sick contacts. She has not been coughing. She denies any chest pain or shortness of breath. No abdominal pain or nausea/vomiting. No urinary symptoms. No rashes. No headache. She denies any change in bowel habits. Past Medical History - Allergies and Home Meds Allergies/Adverse Reactions: Allergies No Known Allergies Allergy (Verified 09/27/20 16:57) Prior records reviewed: Yes Past Medical History: - - Anxiety/depression Smoking Status: Former smoker Review of Systems All systems negative except as indicated General: Reports: Chills, Fever. Denies: Sweats Eyes: Denies: Visual changes - bilaterally, Diplopia ENT: Reports: Sore throat. Denies: Rhinorrhea Cardiovascular: Denies: Chest pain, Palpitations Respiratory: Denies: Dyspnea, Cough, Dyspnea on exertion Gastrointestinal: Denies: Abdominal pain, Nausea, Vomiting, Diarrhea Genitourinary: Denies: Dysuria, Hematuria, Frequency Musculoskeletal: Denies: Back pain, Extremity Pain Skin: Denies: Rash, Wounds Neurological: Denies: Headache, Weakness, Numbness Physical Exam Vital Signs/Narrative: Vital Signs Temp Pulse Resp BP Pulse Ox 09/27/20 16:57 97.4 F L 117 H 20 H 125/74 H 97 09/27/20 16:55 97.4 F L 117 H 20 H 125/74 H 97 Inital Vital Signs reviewed: Yes General: Well developed, Cachectic, No Acute Distress Head: Normocephalic, Atraumatic Eyes: Perrl, EOMI ENT: Moist mucous membranes, No rhinorrhea, - - Cheilitis present. No oral lesions appreciated. Uvula midline. I could not appreciate any tonsillar exudates. Neck: Supple, Nontender Cardiovascular: Regular rate, Regular rhythm, No murmurs Respiratory: No distress, CTA bilaterally, Chest nontender Abdomen: Soft, Nontender, Nondistended, Normal bowel sounds Back: Nontender, Normal Inspection Extremities: Nontender, No edema Skin: Normal color, No rash Neurological: Alert, Oriented x3, Cranial nerves II-XII grossly intact, Normal Strength, Normal Sensation Psychological: Normal affect, Normal Mood Diagnostic/Tx/Re-eval Chest X-Ray - ED: 1 View - Single view portable chest x-ray interpreted by myself. Clear lung jiménez bilaterally without evidence of consolidation. No pleural effusions. Normal cardiac silhouette. Normal mediastinum. Central venous catheter in place. Agree with radiologist interpretation. - Medical Decision Making Patient presents to the emergency department for fever currently undergoing chemotherapy. Her only other complaint at this time is mouth and throat soreness. On exam she does have cheilitis. Upon arrival to the emerge department she is afebrile. She has not taken anything for this. Will check basic lab work and send blood cultures. Will check for strep throat and Covid. Will treat symptomatically with Chloraseptic spray in the meantime. Patient's white count came back critically low. Her strep swab did come back positive. Initially sepsis criteria with IV fluids and antibiotics was not met because she had a suspicion of Covid infection. Also was not sure what we are treating and she was afebrile throughout ED stay. She only had the documented fever at home. At this time she will be treated with amoxicillin. I did contact her oncologist, Dr. Chaidez who did recommend she stay in the hospital until her cultures come back negative. Patient otherwise has been stable throughout ED stay. Her coronavirus test came back negative. No evidence of consolidation on chest x-ray. Urinalysis did not show any evidence of infection. ED Disposition - Plan for ED Patient: Disposition: Acute Care [facility] Diagnosis: Strep pharyngitis, Cheilitis, Neutropenic fever
--- NOTE | 2020-09-27 18:15 | RAD_ITS ---
STUDY: X-RAY CHEST REASON FOR EXAM: Female, 65 years old. Fever. Chemotherapy 8 days ago. TECHNIQUE: Single AP portable view of the chest. COMPARISON: The 08/13/2020. FINDINGS: Stable right jugular Port-A-Cath. The lungs are mildly hyperexpanded. There is no new infiltrate or mass.. There is no demonstrated pleural abnormality. Normal size heart. Normal mediastinum and carlos. Normal visualized pulmonary arteries. Normal visualized aortic arch and descending thoracic aorta. Normal visualized thoracic spine. Normal visualized ribs, clavicles, and shoulders. There is no demonstrated abnormality of the visualized soft tissue structures of the upper abdomen. RAD/Chest 1 View (Portable) IMPRESSION: No acute abnormality or interval change. Electronically Signed: Alejandro Lyons DO at 18:35 EST Tel [phone], Service support ,
[2020-09-27] MEDS: Phenol/Sodium Phenolate 180ML 3 SPRAY MM ×3 (18:39→23:36)
[2020-09-27] MEDS: HYDROcodone Bitartrate/Apap 5/325 Tablet PO (18:47)
[2020-09-27 18:56] LABS: Absolute Lymphocyte Count 0.31 X10^3/uL (0.83-4.51); Absolute Neutrophil Count 0.2 X10^3/uL (2.0-7.7); Basophil# 0.05 X10^3/uL; Basophil% 6.9 % (0-1); Hematocrit 32.5 % (37-47); Hemoglobin 10.6 g/dL (12.0-15.0); Lymphocyte # 0.31 X10^3/ul (4.0); Lymphocyte % 43.1 % (19-41); Mean Corp Hgb Conc 32.6 g/dL (32-36); Mean Corpuscular Hgb 29.5 pg (27.0-32.0); Mean Corpuscular Volume 90.5 fL (81-99); Mean Platelet Vol. 10.5 fl (6.2-12.0); Monocyte# 0.12 X10^3/uL; Monocyte% 16.7 % (0-10); NRBC Flagged by Analyzer 0 % (0-5); Neutrophil # 0.23 X10^3/uL (2.7-7.7); Neutrophil % 31.9 % (47-70); POSITIVE COUNT YES; POSITIVE DIFFERENTIAL YES; POSITIVE MORPHOLOGY YES; Platelet Count 168 K/mm3 (150-450); RBC Distribution Width CV 13.8 % (11.6-14.6); RBC Distribution Width SD 45.3 fl (35.1-43.9); Red Blood Count 3.59 M/mm3 (4.2-5.4)
[2020-09-27 18:58] LABS: Differential Indicated SCAN CRITERIA MET; White Blood Count 0.7 K/mm3 (4.4-11.0)
[2020-09-27 19:00] VITALS: BP 123/86; PULSE 110; RESP 16; TEMP 36.4; O2SAT 99
[2020-09-27 19:12] LABS: Differential Comment SCANNED
[2020-09-27 19:25] LABS: ALB/GLOB Ratio 0.9 RATIO (0.9-2.4); AST(SGOT) < 3 U/L (15-37); Alanine Aminotransfer ALT/SGPT 12 U/L (13-56); Albumin, Serum 3.3 g/dL (3.2-5.0); Alkaline Phosphatase 158 U/L (45-117); Anion Gap 5 (5-15); BUN 8 mg/dL (7-18); Calcium,Total 9.2 mg/dL (8.5-10.1); Chloride 106 mmol/L (98-107); Creatinine, Serum 0.73 mg/dL (0.55-1.02); EST Glomerular Filtration Rate 85 mL/min (>60); Est Glom Filt Rate - Afr Amer 103 mL/min (>60); Estimated Creatinine Clearance 39.75 ml/min; Globulin 3.8 g/dL (2.2-4.2); Glucose 95 mg/dL (74-106); Potassium 4.4 mmol/L (3.5-5.1); Protein, Total 7.1 g/dL (6.4-8.2); Sodium Level 137 mmol/L (136-145)
[2020-09-27 19:29] LABS: Lactic Acid 1.1 mmol/L (0.4-1.9)
[2020-09-27 20:00] VITALS: BP 105/87; PULSE 108; RESP 15; TEMP 36.4; O2SAT 96
[2020-09-27 20:33] LABS: Bacteria 0 SEEN /hpf (None Seen); Mucous, Urine 0 SEEN /hpf (<or=2+); Squamous Epithelial Cells - UA 0 SEEN /hpf (5-10); White Blood Cells 0 SEEN /hpf (0-5)
[2020-09-27 20:40] LABS: Color, Urine Yellow (Yellow); Glucose, Dipstick Normal (Normal); Ketone-Dipstick Negative (Negative); Leukocyte Esterase-Dipstick Negative /ul (Negative); Nitrite-Dipstick Negative (Negative); Occult Blood-Urine 150 /ul (Negative); Protein-Dipstick Negative (Negative); Urine Bilirubin Dipstick Negative (Negative); Urine Clarity Clear (Clear); Urine Urobilinogen Normal (Normal)
[2020-09-27 20:46] LABS: Red Blood Cells-Urine 0-5 SEEN /hpf (0-5)
--- NOTE | 2020-09-27 20:52 | HP.PCM_ITS ---
Problem List (1) Vascular catheter fitting or adjustment Status: Acute (2) Strep pharyngitis Status: Acute (3) Cheilitis Status: Acute (4) Neutropenic fever Status: Acute (5) Cancer of left breast Status: Chronic Qualifiers: Breast location: upper outer quadrant of breast Estrogen receptor status: positive Patient sex: female Qualified Code(s): C50.412 - Malignant neoplasm of upper-outer quadrant of left female breast; Z17.0 - Estrogen receptor posi tive status [ER+] (6) Left breast mass Status: Chronic (7) Personal history of skin cancer Status: Chronic (8) Breast implant removal status Status: Chronic Comment: left breast removal (9) Capsular contracture of breast implant Status: Chronic (10) Disproportion of reconstructed breast Status: Chronic (11) Smoker Status: Chronic (12) Basal cell carcinoma (BCC) of skin of left breast Status: Chronic Comment: 12 mm basal cell carcinoma left medial breast by sternum (13) 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 Status: Chronic Comment: 12 mm basal cell carcinoma left medial breast by sternum (14) Neoplasm of skin of female breast Status: Chronic Comment: 11 mm lesion left medial breast by sternum (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 History of Present Illness Date of Admission: 09/28/20 Chief Complaint: fever and chills The patient is a 65 year old F with a significant history of left breast cancer status post mastectomy and chemotherapy who presents emergency department with 1 day history of fever and chills. She reports multiple high grade fever at home with a maximum temperature of 104 Fahrenheit. Further she reports a sore in her mouth which causes her not to be able to talk and also causes difficulty with eating. At the emergency department Covid test was negative. However patient was positive for Streptococcus group A. Emergency department doctor discussed the case with patient's oncologist who recommended patient to be admitted to the hospital and be treated with IV antibiotics. Past Medical History Past Medical History (Chronic Problems): Chronic Problems (Last Reviewed 09/28/20 @ 08:[address] Abdoulaye Mendes MD) Cancer of left breast (Chronic) Left breast mass (Chronic) Personal history of skin cancer (Chronic) Breast implant removal status (Chronic) left breast removal Capsular contracture of breast implant (Chronic) Disproportion of reconstructed breast (Chronic) Smoker (Chronic) Basal cell carcinoma (BCC) of skin of left breast (Chronic) 12 mm basal cell carcinoma left medial breast by sternum 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 (Chronic) 12 mm basal cell carcinoma left medial breast by sternum Neoplasm of skin of female breast (Chronic) 11 mm lesion left medial breast by sternum Cancer phobia (Chronic) bilateral breasts Family history of breast cancer (Chronic) sister (first degree relative) had breast cancer H/O bilateral breast implants (Chronic) saline implants, 350 ml, submuscular? Medical History: Medical History (Last Reviewed 09/28/20 @ 08:[address] Abdoulaye Mendes MD) Left breast mass (Chronic) N63.20 Rupture of implant of right breast (Inactive) T85.43XA Breast implant removal status (Acute) Z98.86 left breast removal Capsular contracture of breast implant (Chronic) T85.44XA Disproportion of reconstructed breast (Chronic) N65.1 Basal cell carcinoma (BCC) of skin of left breast (Chronic) C44.511 12 mm basal cell carcinoma left medial breast by sternum 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 (Chronic) C44.519 12 mm basal cell carcinoma left medial breast by sternum Rupture of implant of left breast (Inactive) T85.43XA saline implant - 350 ml, submuscular? Breast cancer, left C50.912 Allergies No Known Allergies Allergy (Verified 09/27/20 16:57) Home Medications: Ambulatory Orders Medication Instructions Recorded alprazolam 0.5 mg tablet 0.5 mg PO BID-TID PRN 09/19/18 Cholecalciferol (Vitamin D3) 5,000 unit PO DAILY 12/16/18 [Vitamin D3] Bupropion HCl [Wellbutrin Xl] 300 mg PO DAILY 08/18/19 Cetirizine HCl [Zyrtec] 10 mg PO DAILY 09/27/20 Dexamethasone [Decadron] 4 mg PO PRN PRN 09/27/20 Prochlorperazine Maleate 10 mg PO PRN PRN 09/27/20 Surgical History: Surgical History (Last Reviewed 09/28/20 @ 08:[address] Abdoulaye Mendes MD) H/O section Z98.891 1975 AND 1978 H/O: hysterectomy Z90.710 2000 History of left breast biopsy Onset Date: ~07/10/20 Z98.890 Hx of breast implants, bilateral Z98.82 [facility] S/P left mastectomy Z90.12 07/2020 History of basal cell carcinoma excision Z98.890, Z85.828 Excision 12 mm basal cell carcinoma left medial breast by the sternum with rhomboid transposition skin flap reconstruction (6.48 cm2) - 12/23/18 Hx of breast surgery Z98.890 1. Removal of textured saline implant left breast. 2. Capsulectomy left breast - 08/25/19 Smoking Status: Former smoker - *Family History Maternal Family History: Family History (Last Reviewed 09/28/20 @ 08:[address] Abdoulaye Mendes MD) Father Cancer Brother Cancer Sister Cancer Breast cancer Diabetes Mother Hypertension Review of Systems Constitutional: Reports: Anorexia, Chills, Fever, Fatigue. Denies: Weight Change HEENT: Reports: Sore Throat. Denies: Head Aches, Sinus Congestion, Sinus Drainage Cardiovascular: Denies: Chest Pain, Palpitations Respiratory: Denies: Cough, Shortness of breath at rest, Sputum production Gastrointestinal: Denies: Abdominal Pain, Nausea, Vomiting Genitourinary: Denies: Dysuria Musculoskeletal: Denies: Joint Pain, Joint Tenderness Skin: Denies: Rash, Wounds Neurological: Denies: Numbness, Tingling, Focal weakness Psychiatric: Denies: Anxiety, Depression, Homicidal Ideations, Suicidal Ideations Hematologic/ Lymphatic: Denies: Easy Bruising, Easy Bleeding VTE Information - Inpt Only VTE Present on Admission: No VTE Mechan Device Prophylaxis: None VTE Pharm Prophylaxis ordered?: Yes Patient Problems: Active and Suspected Problems (Last Reviewed 09/28/20 @ 08:[address] Abdoulaye Mendes MD) Vascular catheter fitting or adjustment (Acute) Strep pharyngitis (Acute) Cheilitis (Acute) Neutropenic fever (Acute) - Physical Exam Vitals/I&O's: Vital Signs Temp Pulse Resp BP Pulse Ox 97.5 F L 108 H 15 105/87 H 96 09/27/20 20:00 09/27/20 20:00 09/27/20 20:00 09/27/20 20:00 09/27/20 20:00 Oxygen Delivery Method Room Air Weight: 51.71 kg Body Mass Index (BMI) 22.2 Intake and Output for Last 24 Hours 09/25/20 09/26/20 09/27/20 23:59 23:59 23:59 Intake Total 500 / 500 Balance 500 / 500 General: Alert, Oriented x3, Cooperative HEENT: Atraumatic, PERRLA, EOMI, Normocephalic Oral: Ulcerations Present, - - Left lip angular ulceration. Neck: Supple, No JVD, Negative Carotid Bruits Lungs: Clear to auscultation, Normal air movement Cardiovascular: Regular rate, Normal S1, Normal S2, No murmurs Abdomen: Bowel Sounds Present, Soft, Non Tender Extremities: No edema, Capillary Refill Less than 3 Seconds Skin: No rashes, No breakdown Musculoskeletal: No Tenderness to Palpation of Joints or Extremities, Cachexia Neurological: Cranial nerves II-XII grossly intact Psych/Mental Status: Normal Affect, Appropriate Microbiology Past 72 Hours 09/27/20 18:06 Mucosa - Throat Group A Streptococcus Rapid Screen - Preliminary Streptococcus Group A 09/27/20 18:30 Mucosa - Nose SARS-CoV-2 Antigen (Rapid) - Final Laboratory Results 09/27/20 18:20: WBC 0.7 L*, RBC 3.59 L, Hgb 10.6 L, Hct 32.5 L, MCV 90.5, MCH 29.5, MCHC 32.6, RDW Std Deviation 45.3 H, RDW Coeff of Carmelo 13.8, Plt Count 168, MPV 10.5, Immature Gran % (Auto) 1.400 H, Neut % (Auto) 31.9 L, Lymph % (Auto) 43.1 H, [place] % (Auto) 16.7 H, Eos % (Auto) 0.0, Baso % (Auto) 6.9 H, Absolute Neuts (auto) 0.2 L, Absolute Lymphs (auto) 0.31 L, Nucleated RBC % 0, Differential Comment SCANNED, Diff Path Review January09/27/20 18:20: Sodium 137, Potassium 4.4, Chloride 106, Carbon Dioxide 26.0, Anion Gap 5, BUN 8, Creatinine 0.73, Estim Creat Clear Calc 39.75, Est GFR (MDRD) Af Amer 103, Est GFR (MDRD) Non-Af 85, BUN/Creatinine Ratio 11.0, Glucose 95, Calcium 9.2, Total Bilirubin 0.40, AST < 3 L, ALT 12 L, Alkaline P hosphatase 158 H, Total Protein 7.1, Albumin 3.3, Globulin 3.8, Albumin/Globulin Ratio 0.9 09/27/20 18:20: Lactic Acid 1.1 09/27/20 20:20: Urine Color Yellow, Urine Clarity Clear, Urine pH 8.0, Ur Specific [place] 1.010, Urine Protein Negative, Urine Glucose (UA) Normal, Urine Ketones Negative, Urine Occult Blood 150 H, Urine Nitrite Negative, Urine Bilirubin Negative, Urine Urobilinogen Normal, Ur Leukocyte Esterase Negative, Urine RBC 0-5 SEEN, Urine WBC 0 SEEN, Ur Squamous Epith Cells 0 SEEN, Urine Bacteria 0 SEEN, Urine Mucus 0 SEEN Current Medications Sodium Chloride () 500 mls @ 999 mls/hr IV .Q31M PAIGE Stop: 09/27/20 21:00 Phenol/Menthol (Phenol/Sodium Phenolate 180ml) 3 spray MM Q2H PRN PRN PRN Reason: NOT SPECIFIED Last Admin: 09/27/20 18:39 Dose: 3 sprays Documented by: Assessment/Plan All Active Problems (Last Reviewed 09/28/20 @ 08:[address] Abdoulaye Mendes MD) Vascular catheter fitting or adjustment (Acute) Strep pharyngitis (Acute) Cheilitis (Acute) Neutropenic fever (Acute) The patient is a 65 year old F with a significant history of left breast cancer status post mastectomy and chemotherapy who presents emergency department with 1 day history of fever and chills; cheilitis and with Streptococcus group A pharyngitis. Neutropenic fever with Streptococcus group A pharyngitis Received amoxicillin at emergency department. Per recommendations from patient's oncologist will start patient on IV cefazolin as we await blood cultures. Cheilitis Oxycodone and Tylenol as needed for pain. Received [place] at emergency department. Chloraseptic spray as needed. Pancytopenia. White count of 0.7 Hemoglobin of 10.6. Likely secondary to chemotherapy. Trend CBC. DVT prophylaxis Subcutaneous Lovenox ordered. OBSV E&M: [id number] Initial observation care L2
[2020-09-27 21:00] VITALS: BP 108/79; PULSE 113; RESP 20; TEMP 36.4; O2SAT 97
[2020-09-27] MEDS: AMOXICILLIN 500 MG CAPSULE PO (21:09)
[2020-09-27 23:30] VITALS: BMI 22.0
[2020-09-27 23:39] VITALS: BMI 22.0
[2020-09-27 23:45] VITALS: BP 104/53; PULSE 115; RESP 16; TEMP 37.8; O2SAT 96
[2020-09-28] MEDS: Acetaminophen 325 MG Tablet 650 MG PO (00:05)
[2020-09-28] MEDS: 0.9% Normal Saline 1,000 ML 75 ML IV ×2 (00:05→13:09)
[2020-09-28] MEDS: 0.9% Saline Lock 10 ML Syringe IV (00:06)
[2020-09-28] MEDS: Cefazolin 1 GM/50 ML BAG IV ×2 (00:06→05:08)
[2020-09-28 00:20] VITALS: O2SAT 96
--- NOTE | 2020-09-28 00:26 | NURSING ---
Pandemic Documentation Initiated Emergency Documentation Start: 09/28/20 00:26 Freq: ONCE Status: Active Protocol: Created 09/28/20 00:26 ARGENIS (Rec: 09/28/20 00:26 [id number]
[2020-09-28] MEDS: Phenol/Sodium Phenolate 180ML 3 SPRAY MM ×2 (04:42→09:03)
[2020-09-28 04:45] VITALS: BP 102/51; PULSE 112; RESP 18; TEMP 37; O2SAT 100
[2020-09-28] MEDS: oxyCODONE 5 MG Tablet PO (06:45)
[2020-09-28 07:08] LABS: Absolute Lymphocyte Count 0.08 X10^3/uL (0.83-4.51); Absolute Neutrophil Count 0.7 X10^3/uL (2.0-7.7); Basophil# 0.04 X10^3/uL; Basophil% 4.1 % (0-1); Hematocrit 27.8 % (37-47); Hemoglobin 9.3 g/dL (12.0-15.0); Lymphocyte # 0.08 X10^3/ul (4.0); Lymphocyte % 8.2 % (19-41); Mean Corp Hgb Conc 33.5 g/dL (32-36); Mean Corpuscular Hgb 30.1 pg (27.0-32.0); Mean Platelet Vol. 10.3 fl (6.2-12.0); Monocyte# 0.15 X10^3/uL; Monocyte% 15.3 % (0-10); NRBC Flagged by Analyzer 0 % (0-5); Neutrophil # 0.67 X10^3/uL (2.7-7.7); Neutrophil % 68.3 % (47-70); POSITIVE COUNT YES; POSITIVE DIFFERENTIAL YES; POSITIVE MORPHOLOGY YES; Platelet Count 119 K/mm3 (150-450); RBC Distribution Width CV 14.1 % (11.6-14.6); RBC Distribution Width SD 45.6 fl (35.1-43.9); Red Blood Count 3.09 M/mm3 (4.2-5.4)
[2020-09-28 07:10] VITALS: O2SAT 94
[2020-09-28 07:10] LABS: Differential Indicated SCAN CRITERIA MET
[2020-09-28 07:33] LABS: Anion Gap 6 (5-15); BUN 7 mg/dL (7-18); BUN/Creat Ratio 9.5 RATIO (10-20); Calcium,Total 8.3 mg/dL (8.5-10.1); Chloride 107 mmol/L (98-107); Creatinine, Serum 0.74 mg/dL (0.55-1.02); EST Glomerular Filtration Rate 84 mL/min (>60); Est Glom Filt Rate - Afr Amer 101 mL/min (>60); Estimated Creatinine Clearance 39.75 ml/min; Glucose 103 mg/dL (74-106); Potassium 3.8 mmol/L (3.5-5.1); Sodium Level 138 mmol/L (136-145)
[2020-09-28 08:52] VITALS: BP 87/57; PULSE 112; RESP 18; TEMP 38.2; O2SAT 95
[2020-09-28] MEDS: Loratadine 10 MG Tablet PO (09:09)
[2020-09-28] MEDS: Enoxaparin 40 MG/0.4 ML Syringe SC (09:09)
[2020-09-28] MEDS: buPROPion (XL) 300 MG TABLET.XL PO (09:10)
[2020-09-28] MEDS: BMX LIQUID 180 ML 10 ML PO (13:09)
[2020-09-28] MEDS: NYSTATIN 500,000 UNIT/5 ML UDC 500000 UNIT PO ×3 (13:09→21:24)
--- NOTE | 2020-09-28 13:33 | CM.UR ---
completed ARELLANO form and placed in chart today. Stephen Krishnamurthy RN, CCM.
[2020-09-28 15:00] VITALS: BP 86/54; PULSE 103; RESP 18; TEMP 37.3; O2SAT 94
--- NOTE | 2020-09-28 17:43 | PN_ITS ---
Patient Problems: Active and Suspected Problems (Last Reviewed 09/28/20 @ 08:[address] Abdoulaye Mendes MD) Vascular catheter fitting or adjustment (Acute) Strep pharyngitis (Acute) Cheilitis (Acute) Neutropenic fever (Acute) Subjective: Patient was seen and examined today, I talked briefly with her oncologist by phone who requested that her antibiotic coverage be broadened. Patient's white blood cell count has improved today, I confirmed that she was given Neulasta as an outpatient, it is probable that her white count will be improved tomorrow. - Physical Exam Vitals/I&O's: Vital Signs Temp Pulse Resp BP Pulse Ox 100.7 F H 112 H 18 87/57 L 95 09/28/20 08:52 09/28/20 08:52 09/28/20 08:52 09/28/20 08:52 09/28/20 08:52 Oxygen Delivery Method Room Air Weight: 51.2 kg Body Mass Index (BMI) 22.0 Intake and Output for Last 24 Hours 09/26/20 09/27/20 09/28/20 23:59 23:59 23:59 Intake Total 1000 / 1000 1634.00 / 1634.00 Balance 1000 / 1000 1634.00 / 1634.00 General: Alert, Oriented x3, Cooperative HEENT: Atraumatic, PERRLA, EOMI, Normocephalic Oral: Dry Mucosa, - - Patient has reddened mucosa in her oral cavity Neck: Supple, No JVD, Negative Carotid Bruits, No Nuchal Rigidity, Trachea Midline, Thyroid Normal Size and Texture Lungs: Clear to auscultation, Normal air movement, No rhonchi, No wheeze, No rales Cardiovascular: Regular rate, Regular Rhythm, Normal S1, Normal S2, No murmurs, PMI Normal, No rub noted, No Gallop Abdomen: Bowel Sounds Present, Soft, Non Tender, Non-Distended Extremities: No clubbing, No cyanosis, No edema, Capillary Refill Less than 3 Seconds Musculoskeletal: No Tenderness to Palpation of Joints or Extremities Neurological: Cranial nerves II-XII grossly intact, Neuro grossly intact, Sensory exam intact to light touch and pain, Coordination normal Psych/Mental Status: Normal Affect, Appropriate, Alert and oriented to time, place, person, mood and affect Microbiology Past 72 Hours 09/27/20 18:06 Mucosa - Throat Group A Streptococcus Rapid Screen - Final Streptococcus Group A 09/27/20 18:30 Mucosa - Nose SARS-CoV-2 Antigen (Rapid) - Final Laboratory Results 09/27/20 18:20: WBC 0.7 L*, RBC 3.59 L, Hgb 10.6 L, Hct 32.5 L, MCV 90.5, MCH 29.5, MCHC 32.6, RDW Std Deviation 45.3 H, RDW Coeff of Carmelo 13.8, Plt Count 168, MPV 10.5, Immature Gran % (Auto) 1.400 H, Neut % (Auto) 31.9 L, Lymph % (Auto) 43.1 H, [place] % (Auto) 16.7 H, Eos % (Auto) 0.0, Baso % (Auto) 6.9 H, Absolute Neuts (auto) 0.2 L, Absolute Lymphs (auto) 0.31 L, Nucleated RBC % 0, Differential Comment SCANNED, Diff Path Review January09/27/20 18:20: Sodium 137, Potassium 4.4, Chloride 106, Carbon Dioxide 26.0, Anion Gap 5, BUN 8, Creatinine 0.73, Estim Creat Clear Calc 39.75, Est GFR (MDRD) Af Amer 103, Est GFR (MDRD) Non-Af 85, BUN/Creatinine Ratio 11.0, Glucose 95, Calcium 9.2, Total Bilirubin 0.40, AST < 3 L, ALT 12 L, Alkaline Phosphatase 158 H, Total Protein 7.1, Albumin 3.3, Globulin 3.8, Albumin/Globulin Ratio 0.9 09/27/20 18:20: Lactic Acid 1.1 09/27/20 20:20: Urine Color Yellow, Urine Clarity Clear, Urine pH 8.0, Ur Specific [place] 1.010, Urine Protein Negative, Urine Glucose (UA) Normal, Urine Ketones Negative, Urine Occult Blood 150 H, Urine Nitrite Negative, Urine Bilirubin Negative, Urine Urobilinogen Normal, Ur Leukocyte Esterase Negative, Urine RBC 0-5 SEEN, Urine WBC 0 SEEN, Ur Squamous Epith Cells 0 SEEN, Urine Bacteria 0 SEEN, Urine Mucus 0 SEEN 09/28/20 06:51: WBC 1.0 L*, RBC 3.09 L, Hgb 9.3 L, Hct 27.8 L, MCV 90.0, MCH 30.1, MCHC 33.5, RDW Std Deviation 45.6 H, RDW Coeff of Carmelo 14.1, Plt Count 119 L, MPV 10.3, Immature Gran % (Auto) 4.100 H, Neut % (Auto) 68.3, Lymph % (Auto) 8.2 L, [place] % (Auto) 15.3 H, Eos % (Auto) 0.0, Baso % (Auto) 4.1 H, Absolute Neuts (auto) 0.7 L, Absolute Lymphs (auto) 0.08 L, Nucleated RBC % 0, Differential Comment , Diff Path Review January09/28/20 06:51: Sodium 138, Potassium 3.8, Chloride 107, Carbon Dioxide 25.0, Anion Gap 6, BUN 7, Creatinine 0.74, Estim Creat Clear Calc 39.75, Est GFR (MDRD) Af Amer 101, Est GFR (MDRD) Non-Af 84, BUN/Creatinine Ratio 9.5 L, Glucose 103, Calcium 8.3 L Current Medications Acetaminophen (Acetaminophen 325 Mg Tablet) 650 mg PO Q6H PRN PRN PRN Reason: Pain Score 1-10/Temp > 100.7 F Last Admin: 09/28/20 00:05 Dose: 650 mg Documented by: Alprazolam (Alprazolam 0.5 Mg Tablet) 0.5 mg PO TID PRN PRN PRN Reason: ANXIETY Bupropion HCl (Bupropion (Xl) 300 Mg Tablet.Xl) 300 mg PO DAILY [facility] Last Admin: 09/28/20 09:10 Dose: 300 mg Documented by: Cholecalciferol (Cholecalciferol (Vit D3) 1,000 Unit (25mcg)) 5,000 unit PO DAILY [facility] Last Admin: 09/28/20 09:09 Dose: 5,000 unit Documented by: Enoxaparin Sodium (Enoxaparin 40 Mg/0.4 Ml Syringe) 40 mg SC DAILY [facility] Last Admin: 09/28/20 09:09 Dose: 40 mg Documented by: Sodium Chloride () 1,000 mls @ 75 mls/hr IV .[id number] [facility] Last Admin: 09/28/20 13:09 Dose: 75 mls/hr Documented by: Sodium Chloride () 250 mls @ 15 mls/hr IV .[id number] PRN PRN Reason: Saline Flush Last Infusion: 09/28/20 13:36 Dose: 0 mls/hr Documented by: Sodium Chloride () 250 mls @ 15 mls/hr IV .[id number] PRN PRN Reason: Additional IVPB Infusion Piperacillin Sod/Tazobactam (Sod 3.375 gm/ Sodium Chloride) 50 mls @ 12.5 mls/hr IV Q8 PAIGE Last Admin: 09/28/20 11:44 Dose: 12.5 mls/hr Documented by: Lidocaine/Diphenhydr/Alum/Mg/Simeth (Bmx Liquid 180 Ml) 10 ml PO Q3H PRN PRN PRN Reason: MOUTH IRRITATION Last Admin: 09/28/20 13:09 Dose: 10 ml Documented by: Loratadine (Loratadine 10 Mg Tablet) 10 mg PO DAILY [facility] Last Admin: 09/28/20 09:09 Dose: 10 mg Documented by: Melatonin (Melatonin 3 Mg Tablet) 3 mg PO QHS [facility] Last Admin: 09/28/20 04:27 Dose: Not Given Documented by: Mupirocin (Mupirocin Ointment 22gm Tube) 1 applic TOPICAL BID [facility]; Protocol Nystatin (Nystatin 500,000 Unit/5 Ml Udc) 500,000 unit PO 4X/DAY [facility] Last Admin: 09/28/20 13:09 Dose: 500,000 unit Documented by: Ondansetron HCl (Ondansetron 4 Mg/2 Ml Vial) 4 mg IV Q8H PRN PRN PRN Reason: NAUSEA/VOMITING Oxycodone HCl (Oxycodone 5 Mg Tablet) 5 mg PO Q6H PRN PRN PRN Reason: Pain Score 6-10 Last Admin: 09/28/20 06:45 Dose: 5 mg Documented by: Phenol/Menthol (Phenol/Sodium Phenolate 180ml) 3 spray MM Q2H PRN PRN PRN Reason: NOT SPECIFIED Last Admin: 09/28/20 09:03 Dose: 3 sprays Documented by: Sodium Chloride (0.9% Saline Lock 10 Ml Syringe) 10 - 40 ml IV UD PRN PRN Reason: SALINE FLUSH Last Admin: 09/28/20 00:06 Dose: 10 ml Documented by: Medical Necessity - Tobacco Use Smoking Status: Former smoker Assessment/Plan All Active Problems (Last Reviewed 09/28/20 @ 08:[address] Abdoulaye Mendes MD) Vascular catheter fitting or adjustment (Acute) Strep pharyngitis (Acute) Cheilitis (Acute) Neutropenic fever (Acute) #1 neutropenic fever secondary to strep pharyngitis-patient's antibiotic coverage was changed to Zosyn #2 neutropenia secondary to chemotherapy for breast cancer-CBC will be rechecked tomorrow #3 breast cancer #4 stomatitis-probably secondary to Shelia (thrush)-patient was placed on nystatin swish and swallow, BMX liquid will be used for comfort Inpatient E&M: [id number] Subs Hosp L2
[2020-09-28] MEDS: Mupirocin Ointment 22gm Tube 1 APPLIC TOPICAL ×2 (18:31→21:24)
[2020-09-28 21:00] VITALS: BP 98/59; PULSE 92; RESP 16; TEMP 37.3; O2SAT 96
[2020-09-28] MEDS: MELATONIN 3 MG TABLET PO (21:24)
[2020-09-29 03:00] VITALS: BP 98/54; PULSE 78; RESP 16; TEMP 36.8; O2SAT 95
[2020-09-29] MEDS: 0.9% Normal Saline 1,000 ML 75 ML IV (05:39)
[2020-09-29 06:14] LABS: Hematocrit 26.7 % (37-47); Hemoglobin 8.6 g/dL (12.0-15.0); Mean Corp Hgb Conc 32.2 g/dL (32-36); Mean Corpuscular Hgb 29.5 pg (27.0-32.0); Mean Corpuscular Volume 91.4 fL (81-99); Mean Platelet Vol. 10.8 fl (6.2-12.0); POSITIVE COUNT YES; POSITIVE DIFFERENTIAL YES; POSITIVE MORPHOLOGY YES; Platelet Count 121 K/mm3 (150-450); RBC Distribution Width CV 14.4 % (11.6-14.6); RBC Distribution Width SD 47.7 fl (35.1-43.9); Red Blood Count 2.92 M/mm3 (4.2-5.4); White Blood Count 4.1 K/mm3 (4.4-11.0)
[2020-09-29 06:43] LABS: Differential Indicated MANUAL DIFF
[2020-09-29 06:58] LABS: Basophil 2 % (0-1); Hypochromasia 2+; Lymphocyte 14 % (19-41); Monocyte 8 % (0-10); Neutrophil-Band 2 % (0-5); Neutrophil-Segmented 74 % (47-70); Platelet Estimate ADEQUATE (ADEQ); Red Cell Morphology N CYTIC NORMAL (NORM C&C); Total Cells Counted 100 (MANUAL DIFF)
[2020-09-29 06:59] LABS: Absolute Lymphocyte Count 0.57 X10^3/uL (0.83-4.51); Absolute Neutrophil Count 3.1 X10^3/uL (2.0-7.7); Lymphocyte # 0.57 X10^3/ul (4.0); Neutrophil # 3.11 X10^3/uL (2.7-7.7)
[2020-09-29 08:10] VITALS: BP 110/69; PULSE 84; RESP 18; TEMP 36.8; O2SAT 97
[2020-09-29] MEDS: Mupirocin Ointment 22gm Tube 1 APPLIC TOPICAL (08:18)
[2020-09-29] MEDS: Loratadine 10 MG Tablet PO (08:20)
[2020-09-29] MEDS: Enoxaparin 40 MG/0.4 ML Syringe SC (08:21)
[2020-09-29] MEDS: NYSTATIN 500,000 UNIT/5 ML UDC 500000 UNIT PO ×2 (08:22→14:12)
[2020-09-29] MEDS: buPROPion (XL) 300 MG TABLET.XL PO (08:23)
[2020-09-29] MEDS: BMX LIQUID 180 ML 10 ML PO ×2 (08:24→14:13)
[2020-09-29 10:37] VITALS: O2SAT 98
[2020-09-29 13:47] VITALS: BP 94/59; PULSE 88; RESP 18; TEMP 36.9; O2SAT 98
--- NOTE | 2020-09-29 14:38 | DCINST_ITS ---
- Discharge Diagnoses Current Active Problems: Current Active and Chronic Problems (Last Reviewed 09/28/20 @ 08:[address] Abdoulaye Mendes MD) Vascular catheter fitting or adjustment (Acute) Strep pharyngitis (Acute) Cheilitis (Acute) Neutropenic fever (Acute) Cancer of left breast (Chronic) Left breast mass (Chronic) Personal history of skin cancer (Chronic) Breast implant removal status (Chronic) left breast removal Capsular contracture of breast implant (Chronic) Disproportion of reconstructed breast (Chronic) Smoker (Chronic) Basal cell carcinoma (BCC) of skin of left breast (Chronic) 12 mm basal cell carcinoma left medial breast by sternum 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 (Chronic) 12 mm basal cell carcinoma left medial breast by sternum Neoplasm of skin of female breast (Chronic) 11 mm lesion left medial breast by sternum Cancer phobia (Chronic) bilateral breasts Family history of breast cancer (Chronic) sister (first degree relative) had breast cancer H/O bilateral breast implants (Chronic) saline implants, 350 ml, submuscular? You will use the following diet at home:: No restrictions Your food should be the consistency of: Regular Your liquids should be the consistency of: Regular/Thin Discharge Activity: Return to Normal Activity Weight Bearing Status: Full weight bearing Allergies/Adverse Reactions: Allergies No Known Allergies Allergy (Verified 09/27/20 16:57) Medications to take at Discharge alprazolam 0.5 mg tablet 0.5 mg PO BID-TID PRN 09/19/18 Cholecalciferol (Vitamin D3) [Vitamin D3] 5,000 unit PO DAILY 12/16/18 Bupropion HCl [Wellbutrin Xl] 300 mg PO DAILY 08/18/19 Cetirizine HCl [Zyrtec] 10 mg PO DAILY 09/27/20 Dexamethasone [Decadron] 4 mg PO PRN PRN 09/27/20 Prochlorperazine Maleate 10 mg PO PRN PRN 09/27/20 Amoxicillin/Potassium Clav [Augmentin 875-125 Tablet] 1 ea PO BIDCM #20 tab 09/29/20 Bmx Liquid 10 ml PO Q3H PRN PRN ml 09/29/20 Nystatin 500,000 unit PO 4X/DAY #120 ml 09/29/20 The following prescriptions were given: Amoxicillin/Potassium Clav [Augmentin 875-125 Tablet] 1 ea PO BIDCM #20 tab Transmission Status: Pending to [facility] Nystatin 500,000 unit PO 4X/DAY #120 ml Transmission Status: Pending to [facility] Primary Care Physician: Rob Duque MD [Primary Care Provider] - Please follow up with your Primary Care Physician in: as scheduled Test Results: Test results from this visit will be discussed in further detail at your follow- up appointment, if applicable. Please Follow Up With: Neo Mireles MD When: as scheduled
[2020-09-29] MEDS: 0.9 % NaCl (Sterile) Posiflush 10 mL IV (16:34)
[2020-09-29] MEDS: 0.9% Saline Lock 10 ML Syringe IV (16:35)
--- NOTE | 2020-09-29 16:41 | PCM.DC.SUM ---
Discharge Date and Diagnosis - Problem List Patient Problems: Active and Suspected Problems (Last Reviewed 09/28/20 @ 08:[address] Abdoulaye Mendes MD) Vascular catheter fitting or adjustment (Acute) Strep pharyngitis (Acute) Cheilitis (Acute) Neutropenic fever (Acute) Date of Admission: 09/28/20 Date of Discharge: 09/29/20 - Primary Discharge Diagnosis Acute Problems: Active Problems (Last Reviewed 09/28/20 @ 08:[address] Abdoulaye Mendes MD) Strep pharyngitis (Acute) Cheilitis (Acute) Neutropenic fever (Acute) Bicytopenia secondary to chemotherapy for breast cancer Breast cancer - Secondary Discharge Diagnosis Chronic Problems: Chronic Problems (Last Reviewed 09/28/20 @ 08:[address] Abdoulaye Mendes MD) Cancer of left breast (Chronic) Left breast mass (Chronic) Personal history of skin cancer (Chronic) Breast implant removal status (Chronic) left breast removal Capsular contracture of breast implant (Chronic) Disproportion of reconstructed breast (Chronic) Smoker (Chronic) Basal cell carcinoma (BCC) of skin of left breast (Chronic) 12 mm basal cell carcinoma left medial breast by sternum 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 (Chronic) 12 mm basal cell carcinoma left medial breast by sternum Neoplasm of skin of female breast (Chronic) 11 mm lesion left medial breast by sternum Cancer phobia (Chronic) bilateral breasts Family history of breast cancer (Chronic) sister (first degree relative) had breast cancer H/O bilateral breast implants (Chronic) saline implants, 350 ml, submuscular? Hospital Course and Treatment Operations: None Procedures: None Summary of Care Provided: The patient is a 65 year old F was seen in the emergency room at [facility] with chief complaint of fever. Patient has been undergoing chemotherapy for breast cancer. She developed a fever which was up to 100.7 at home. Evaluation in the emergency room included a chest x-ray which showed no evidence of pneumonia, patient's urinalysis was unremarkable, patient's chemistry profile showed an elevated alkaline phosphatase at 158 but was otherwise normal. Patient's CBC was remarkable for neutropenia with an absolute neutrophil count of 200, patient's hemoglobin was low at 10.6. Patient had a throat swab performed for strep-this was positive for strep today, her Covid rapid antigen was negative, blood cultures were obtained. Patient was placed into observation status on MedSurg 3, she was placed on IV antibiotics, she had cheilitis and probable thrush and was placed on medication for this. Patient's white blood cell count increased over the next 48 hours, and her temperature resolved. On examination she appeared in good health and spirits, she does not appear to be in any distress. Vital signs as documented. Skin warm and dry and without overt rashes. Neck without JVD, thyroid appears normal, trachea is midline, neck is supple. Lungs clear, normal air movement was noted. Heart exam notable for regular rhythm, normal sounds and absence of murmurs, rubs or gallops. Abdomen unremarkable and without evidence of organomegaly, masses, or abdominal aortic enlargement, bowel sounds are present in all 4 quadrants, no abdominal tenderness was noted. Extremities nonedematous, no cyanosis was noted, no clubbing was noted. Neuro: Cranial nerves II through XII are grossly intact, no focal motor deficits were noted, sensation to light touch and pinprick is intact, motor exam 5/5 throughout. Psych: Patient is alert and oriented x3, she does not appear anxious or depressed, she does not appear agitated. On 09/29/2020, patient was seen and examined, he appears stable for discharge at this time, she was discharged on an additional 10 days of antibiotic for strep pharyngitis. She is to follow-up with her oncologist Dr. Mireles. Patient Problems: Active and Suspected Problems (Last Reviewed 09/28/20 @ 08:[address] Abdoulaye Mendes MD) Vascular catheter fitting or adjustment (Acute) Strep pharyngitis (Acute) Cheilitis (Acute) Neutropenic fever (Acute) - Physical Exam Vitals/I&O's: Vital Signs Temp Pulse Resp BP Pulse Ox 98.4 F 88 18 94/59 L 98 09/29/20 13:47 09/29/20 13:47 09/29/20 13:47 09/29/20 13:47 09/29/20 13:47 Oxygen Delivery Method Room Air Weight: 51.2 kg Body Mass Index (BMI) 22.0 Intake and Output for Last 24 Hours 09/27/20 09/28/20 09/29/20 23:59 23:59 23:59 Intake Total 1000 / 1000 2284.00 / 2584.00 1823.25 / 1823.25 Balance 1000 / 1000 2284.00 / 2584.00 1823.25 / 1823.25 Microbiology Past 72 Hours 09/27/20 18:06 Mucosa - Throat Group A Streptococcus Rapid Screen - Final Streptococcus Group A 09/27/20 18:30 Mucosa - Nose SARS-CoV-2 Antigen (Rapid) - Final Laboratory Results 09/29/20 05:12: WBC 4.1 L, RBC 2.92 L, Hgb 8.6 L, Hct 26.7 L, MCV 91.4, MCH 29.5, MCHC 32.2, RDW Std Deviation 47.7 H, RDW Coeff of Carmelo 14.4, Plt Count 121 L, MPV 10.8, Neut % (Auto) Not Reportable, Absolute Neuts (auto) 3.1, Absolute Lymphs (auto) 0.57 L, Total Counted 100, Neutrophils % (Manual) 74 H, Band Neutrophils % 2, Lymphocytes % (Manual) 14 L, Monocytes % (Manual) 8, Basophils % (Manual) 2 H, Diff Path Review January, Platelet Estimate ADEQUATE, RBC Morphology N CYTIC, Hypochromasia 2+ Current Medications Acetaminophen (Acetaminophen 325 Mg Tablet) 650 mg PO Q6H PRN PRN PRN Reason: Pain Score 1-10/Temp > 100.7 F Last Admin: 09/28/20 00:05 Dose: 650 mg Documented by: Alprazolam (Alprazolam 0.5 Mg Tablet) 0.5 mg PO TID PRN PRN PRN Reason: ANXIETY Bupropion HCl (Bupropion (Xl) 300 Mg Tablet.Xl) 300 mg PO DAILY [facility] Last Admin: 09/29/20 08:23 Dose: 300 mg Documented by: Cholecalciferol (Cholecalciferol (Vit D3) 1,000 Unit (25mcg)) 5,000 unit PO DAILY [facility] Last Admin: 09/29/20 08:20 Dose: 5,000 unit Documented by: Enoxaparin Sodium (Enoxaparin 40 Mg/0.4 Ml Syringe) 40 mg SC DAILY [facility] Last Admin: 09/29/20 08:21 Dose: 40 mg Documented by: Heparin Sodium (Beef Lung) (Heparin Pf Lock 10 Units/Ml 50 Units/5 Ml Syringe) 50 units IV UD PRN PRN Reason: Port-a-Cath (VAD)Heparin Flush Sodium Chloride () 1,000 mls @ 75 mls/hr IV .[id number] [facility] Last Admin: 09/29/20 05:39 Dose: 75 mls/hr Documented by: Sodium Chloride () 250 mls @ 15 mls/hr IV .[id number] PRN PRN Reason: Saline Flush Last Infusion: 09/29/20 02:36 Dose: 0 mls/hr Documented by: Sodium Chloride () 250 mls @ 15 mls/hr IV .[id number] PRN PRN Reason: Additional IVPB Infusion Piperacillin Sod/Tazobactam (Sod 3.375 gm/ Sodium Chloride) 50 mls @ 12.5 mls/hr IV Q8 [facility] Last Admin: 09/29/20 14:11 Dose: 12.5 mls/hr Documented by: Lidocaine/Diphenhydr/Alum/Mg/Simeth (Bmx Liquid 180 Ml) 10 ml PO Q3H PRN PRN PRN Reason: MOUTH IRRITATION Last Admin: 09/29/20 14:13 Dose: 10 ml Documented by: Loratadine (Loratadine 10 Mg Tablet) 10 mg PO DAILY [facility] Last Admin: 09/29/20 08:20 Dose: 10 mg Documented by: Melatonin (Melatonin 3 Mg Tablet) 3 mg PO QHS [facility] Last Admin: 09/28/20 21:24 Dose: 3 mg Documented by: Mupirocin (Mupirocin Ointment 22gm Tube) 1 applic TOPICAL BID [facility]; Protocol Last Admin: 09/29/20 08:18 Dose: 1 applicatio Documented by: Nystatin (Nystatin 500,000 Unit/5 Ml Udc) 500,000 unit PO 4X/DAY [facility] Last Admin: 09/29/20 14:12 Dose: 500,000 unit Documented by: Ondansetron HCl (Ondansetron 4 Mg/2 Ml Vial) 4 mg IV Q8H PRN PRN PRN Reason: NAUSEA/VOMITING Oxycodone HCl (Oxycodone 5 Mg Tablet) 5 mg PO Q6H PRN PRN PRN Reason: Pain Score 6-10 Last Admin: 09/28/20 06:45 Dose: 5 mg Documented by: Phenol/Menthol (Phenol/Sodium Phenolate 180ml) 3 spray MM Q2H PRN PRN PRN Reason: NOT SPECIFIED Last Admin: 09/28/20 09:03 Dose: 3 sprays Documented by: Sodium Chloride (0.9% Saline Lock 10 Ml Syringe) 10 - 40 ml IV UD PRN PRN Reason: SALINE FLUSH Last Admin: 09/28/20 00:06 Dose: 10 ml Documented by: Sodium Chloride (0.9% Saline Lock 10 Ml Syringe) 10 - 40 ml IV UD PRN PRN Reason: Port-a-Cath (VAD) Flush Last Admin: 09/29/20 16:35 Dose: 10 ml Documented by: Sodium Chloride (0.9 % Nacl (Sterile) Posiflush 10 Ml) 10 - 40 ml IV UD PRN PRN Reason: Port access or dressing change Last Admin: 09/29/20 16:34 Dose: 20 ml Documented by: Discharge Activity: Return to Normal Activity Weight Bearing Status: Full weight bearing Home Medications: Medications to take at Discharge alprazolam 0.5 mg tablet 0.5 mg PO BID-TID PRN 09/19/18 Cholecalciferol (Vitamin D3) [Vitamin D3] 5,000 unit PO DAILY 12/16/18 Bupropion HCl [Wellbutrin Xl] 300 mg PO DAILY 08/18/19 Cetirizine HCl [Zyrtec] 10 mg PO DAILY 09/27/20 Dexamethasone [Decadron] 4 mg PO PRN PRN 09/27/20 Prochlorperazine Maleate 10 mg PO PRN PRN 09/27/20 Amoxicillin/Potassium Clav [Augmentin 875-125 Tablet] 1 ea PO BIDCM #20 tab 09/29/20 Bmx Liquid 10 ml PO Q3H PRN PRN ml 09/29/20 Nystatin 500,000 unit PO 4X/DAY #120 ml 09/29/20 Following Prescriptions Were Given to Patient: Amoxicillin/Potassium Clav [Augmentin 875-125 Tablet] 1 ea PO BIDCM #20 tab Transmission Status: Received by EULA COOPER RD Nystatin 500,000 unit PO 4X/DAY #120 ml Transmission Status: Received by EULA COOPER RD Primary Care Physician: Rob Duque MD [Primary Care Provider] - Please follow up with your Primary Care Physician in: as scheduled Please Follow Up With: Neo Mireles MD When: as scheduled Disposition: Home Minutes spent on discharge:: 30 Patient Condition:: Stable Medical Necessity - Tobacco Use Smoking Status: Former smoker Meaningful Use Info Meaningful Use Diagnoses (Choose all that apply): None applicable OBSV E&M: 48248 Observation care discharge
[2020-09-29 17:00] VITALS: BP 94/59; PULSE 88; RESP 18; TEMP 36.9; O2SAT 98
[2020-09-30 13:11] LABS: Pathologist Review Reviewed
[2020-09-30 13:11] LABS: Pathologist Review Reviewed
[2020-09-30 13:22] LABS: Pathologist Review Reviewed
== END 2020-09-29 16:59 | disposition home or self-care (01) ==
LOC: ED 21:05 → MS3 23:12
PROVIDERS: Admitting Provider Hospitalist; Emergency Provider Emergency Medicine; PCP Family Medicine; Visit Provider Internal Medicine
DX: J02.0 Streptococcal pharyngitis (principal); R50.81 Fever presenting with conditions classified elsewhere; C50.912 Malignant neoplasm of unspecified site of left female breast; K13.0 Diseases of lips; Z87.891 Personal history of nicotine dependence; Z79.899 Other long term (current) drug therapy; D61.818 Other pancytopenia; D70.1 Agranulocytosis secondary to cancer chemotherapy
CPT/HCPCS: 36415; 36591; 71045; 80048; 80053; 81001; 83605; 85025; 87040; 87426; 87880; 96361; 96365; 96366; 96367; 96372; 97802; 99218; 99283; J7030; J7040; J7050; A4216; G0378

== ENCOUNTER 2021-03-04 16:01 | Observation (INO) | payer MEDICARE, MEDICAID, SELFPAY ==
[2021-01-30 09:58] VITALS: BMI 22.0
--- NOTE | 2021-03-03 08:33 | EKG12_ITS ---
Test Reason : PRE OP Blood Pressure : / mmHG Vent. Rate : 071 BPM Atrial Rate : 071 BPM P-R Int : 150 ms QRS Dur : 068 ms QT Int : 368 ms P-R-T Axes : 057 045 057 degrees QTc Int : 399 ms Normal sinus rhythm Normal ECG Confirmed by MAURA HAMILTON, JOSHUA ([id number]), assistant production editor MARIAMA CARVAHLO ([id number]) on 03/04/2021 9:32:44 AM Referred By: Gregorio Carolina Confirmed By:JOSHUA LORENZO MD
[2021-03-03 10:02] LABS: Hematocrit 45.3 % (37-47); Hemoglobin 14.2 g/dL (12.0-15.0); Mean Corp Hgb Conc 31.3 g/dL (32-36); Mean Corpuscular Hgb 28.8 pg (27.0-32.0); Mean Corpuscular Volume 91.9 fL (81-99); Mean Platelet Vol. 9.8 fl (6.2-12.0); Platelet Count 315 K/mm3 (150-450); RBC Distribution Width SD 47.7 fl (35.1-43.9); Red Blood Count 4.93 M/mm3 (4.2-5.4); White Blood Count 6.1 K/mm3 (4.4-11.0)
[2021-03-03 10:43] LABS: Magnesium 2.1 mg/dL (1.6-2.6)
--- NOTE | 2021-03-03 22:52 | PCM.HP.BLA ---
History and Physical Date of Admission: 03/04/21 HISTORY OF PRESENT ILLNESS 66 year old woman presents to discuss further breast reconstruction. Recently she had left breast cancer that led to a mastectomy on 07/23/20. Postoperatively she needed IV chemotherapy and recently finished in early December. She also has a history of having breast implants. She had saline implants placed at [facility] in 2003. She had her left breast saline implant removed 08/25/19 after it ruptured. Pathology at that time was negative. Her right implant ruptured in June 2020. Plans were being made to remove that ruptured implant as well and underwent a mammogram and ultrasound. This necessitated a biopsy on the left which led to the breast cancer diagnosis. Now that the chemotherapy is finished, she is interested in having the ruptured saline implant removed on the right with capsulectomy. Because of her recent diagnosis of left breast cancer, she has developed some cancer phobia on the right breast and is interested in a prophylactic mastectomy to minimize risk of developing breast cancer on the right. At her last office visit in October,, there was an enlarging lesion central forehead that we were closely observing. If it were still present after chemotherapy that would need to be removed because of her history of basal cell carcinoma. However, during the remaining chemotherapy, the lesion resolved on its own. The area on her central forehead is smooth. PAST MEDICAL HISTORY Acquired absence of bilateral breasts and nipples Basal cell carcinoma (BCC) of skin of left breast 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 Breast cancer, left Breast implant removal status Cancer of left breast Capsular contracture of breast implant Disproportion of reconstructed breast Former smoker History of removal of left breast implant Left breast mass Neoplasm of skin of forehead Personal history of skin cancer Rupture of implant of left breast Rupture of implant of right breast PAST SURGICAL HISTORY section hysterectomy basal cell carcinoma excision left breast biopsy (~07/10/20) breast implants, bilateral breast surgery left mastectomy ALLERGIES No Known Allergies MEDICATIONS alprazolam cholecalciferol (vitamin D3) bupropion HCl cetirizine dexamethasone prochlorperazine maleate amoxicillin-pot clavulanate lidocaine HCl nystatin amlodipine besylate FAMILY HISTORY Father - Cancer Brother - Skin Cancer Sister - Cancer, Breast cancer, Diabetes Mother - Hypertension SOCIAL HISTORY Smoking Status: Former smoker REVIEW OF SYSTEMS General - Denies fever and weight loss. Has fatigue. Eyes - Denies cataracts and glaucoma. ENT - Denies nasal congestion and sore throat. Endocrine - Denies excessive thirst and urination. Had recent diagnosis of left breast cancer. Skin - She had a basal cell carcinoma removed from left medial breast by the sternum 12/23/18. She has an enlarging lesion on her central forehead. Musculoskeletal - Denies joint pain, joint stiffness, weakness of muscles and joints, back pain, and arthritis. Breasts - Has history of saline breast implants and recent flattening of right breast clinically consistent with implant rupture. She had left breast saline implant removed 08/25/19 due to rupture. Has left breast invasive ductal carcinoma with mastectomy 07/23/20. Undergoing chemotherapy currently. Neuro - Denies headaches. Cardiovascular - Denies chest pain, fatigue, and shortness of breath with exertion. Psych - Denies anxiety. Has depression. Has claustrophobia. Respiratory - Denies chronic cough and shortness of breath. Gastrointestinal - Denies nausea, vomiting, diarrhea, and constipation. Hematologic - Denies abnormal bruising and bleeding. Genitourinary - Denies hematuria and urinary frequency. PHYSICAL EXAMINATION General - Alert and oriented. Bra size is C cup after the implants. Bra size was A cup before the implants. HEENT - PERRL. EOMI. Throat is clear. On the central forehead was a lesion that has since resolved. Will closely observe the are in case it recurs at which time it would need to be excised and sent to Pathology for analysis to rule out carcinoma. No other suspicious lesions noted. Neck - Supple and non-tender. No cervical adenopathy. No suspicious lesions noted. Breasts - Left mastectomy scar. Right breast saline implant ruptured. Breast width is 14 cm bilaterally. No axillary adenopathy. On the left medial breast by the sternum is a a healed scar from excision of basal cell carcinoma in 12/30. Lungs- Clear to auscultation. Heart - Regular rate and rhythm. Abdomen - Soft and non distended. Extremities - FROM. No axillary adenopathy. Radial pulses are palpable. No suspicious lesions noted. Neuro - CN II-XII grossly intact. Psych - Normal mood and affect. ASSESSMENT 1. Left breast cancer. 2. Removal ruptured left breast implant. 3. Planned acquired absence bilateral breasts. 4. Cancer phobia right breast. 5. Ruptured right breast implant. 6. Capsular contracture right breast. 7. Family history of breast cancer. 8. Personal history of skin cancer. 9. Former smoker. PLAN It has been 6 weeks since the chemotherapy has stopped. She is ready to proceed with removal ruptured saline implant right breast along with capsulectomy. After her breast cancer diagnosis on the left breast, she has developed cancer phobia right breast. So will proceed with prophylactic mastectomy on the right after the ruptured saline implant has been removed. Will send tissue to Pathology for analysis to rule out carcinoma. Drains will be placed for 10-14 days and will be maintained on antibiotics until the drains are removed. Any fluid seen at the time of the removal of the ruptured implant will be sent to Microbiology for culture. A positive culture will necessitate antibiotic therapy. Will need compression during the healing process to minimize seroma formation. At this time the patient is not interested in any breast reconstruction. So will set her postoperatively for mastectomy bras and external prostheses. She was interested in that option. Surgery will be done under general anesthesia with a surgical observation overnight stay in the hospital. Patient was informed of the risks and complications of the procedure including alternatives to surgery. These were discussed with the patient personally. Patient voices understanding and wishes to proceed. Some of the risks and complications were included in a form from the [employer]. Potential risks and complications included but not inclusive of bleeding, infection, seroma, hematoma, bruising, swelling, prolonged need for drains, loss of sensation to skin, partial or complete loss of skin flap and/or nipple graft, wound breakdown, need for wound care, poor scarring, poor aesthetic outcome, intra operative cardiac or neurologic events, DVT, PE, and reaction to anesthesia. We discussed the current risks associated with COVID-19. While it is understood that there is a community spread of COVID-19, the risk of columba COVID-19 while at [facility] ([facility]) is very low; however, the risk cannot be completely mitigated because of the community spread of the disease. We discussed in detail the risk of exposure to and/or potential harm posed by the COVID-19 virus with having a surgery/procedure at this time versus the risk of delaying the surgery/procedure. It is not possible to know either the risk of delaying the surgery or procedure or chance of getting an infection with perfect accuracy, but a joint decision was made to proceed at this time with the scheduled surgery/procedure as indicated on the consent form. Patient was notified that we will need to comply with any screening or testing [facility] wishes to perform or that surgery may be delayed for any positive results. Discussed with the patient that I was tested for COVID-19 on 03/14/20 which was negative and on 03/28/20 which was negative and on 04/11/20 which was negative and on 04/25/20 which was negative and on 05/09/20 which was negative and on 05/30/20 which was negative and on 06/20/20 which was negative and on 07/25/20 which was negative and on 08/15/20 which was negative and on 09/03/20 which was negative. I received the COVID-19 vaccine (Moderna) on 09/11/20 and the second vaccine dose was received on 10/09/20. When I was hospitalized on 11/11/20 I was tested for COVID-19 which was negative. I was also tested for COVID-19 on 11/26/20 which was negative and on 12/23/20 which was negative. Procedure Criteria Procedure Type: Elective COVID Risk Discussion: The surgeon/proceduralist and patient have discussed in detail the risk of exposure to and/or potential harm posed by the COVID-19 virus with having a surgery/procedure at this time versus the risk of delaying the surgery/procedure. It is not possible to know either the risk of delaying the surgery or procedure or chance of getting an infection with perfect accuracy, but a joint decision was made between the patient and the surgeon/proceduralist to proceed at this time with the scheduled surgery/procedure as indicated on the consent form.
[2021-03-04] VITALS (9 sets, daily range): BP systolic 111–153; BP diastolic 73–102; PULSE 73–101; RESP 16–18; TEMP 35.9–36.5; O2SAT 94–100; BMI 22.6
[2021-03-04] MEDS: Acetaminophen 500 MG Tablet 1000 MG PO ×3 (09:10→23:23)
[2021-03-04] MEDS: Gabapentin 600 MG Tablet PO (09:10)
[2021-03-04] MEDS: Scopolamine 1mg/72hr Patch 1 PATCH TD (09:11)
[2021-03-04 09:21] LABS: Bedside Glucose 84 mg/dL (70-110)
[2021-03-04] MEDS: Lactated Ringers 1,000 ML 40 ML IV (09:29)
--- NOTE | 2021-03-04 10:15 | TISS_PTH ---
PATIENT: SEVEN MOORE LOC: MS3 U#:[id number] AGE/SX: 66/F ROOM: [facility] RE03/04/[address]: Dr. Gregorio Carolina MD : [id number] BED: 1 DIS: 03/05/2021 SPEC #: [id number] RECD: 03/04/21 14:37 STATUS: YVETTE SHARPE #: [id number] NSIHI: 03/04/21 10:[address]: Gregorio Carolina DEPT: SURGICAL PATHOLOGY RECD BY: Sunshine Cevallos ENTERED: 03/05/21 07:25 SP TYPE: Tissue Bx OT DR: Dr. Eder Duque MD Tissues: Right breast, NOS Procedures: Surgery Specimen Level I Surgery Specimen Level V HEADER OPERATION: ERAS, removal of ruptured saline implant, breast with capsule PRE-OP DIAGNOSIS: Ruptured right breast implant; capsular contracture right breast TISSUE SUBMITTED: Right breast tissue, implant and capsule MICROSCOPIC DIAGNOSIS Right breast, implant and capsule, simple mastectomy: Breast tissue with fibrocystic changes, adenosis and focal intraductal hyperplasia without atypia. Nipple, no pathologic diagnosis. Focal microcalcifications. Detached pieces of tissue consistent with capsule showing skeletal muscle tissue and fibrous tissue with reactive changes and chronic inflammation. Breast implant (gross only). SJ:elly 03/07/2021 MICROSCOPIC DESCRIPTION Slides are reviewed. GROSS DESCRIPTION Received in fixative is one container labeled with the patient's name and designated right breast tissue, implant and capsule. The specimen consists of a simple mastectomy specimen consistent with breast tissue with overlying skin ellipse. The breast tissue measures 14 x 14 x 3 cm. The overlying skin ellipse measures 10 x 3.5 cm. The nipple measures 1.5 cm in greatest dimension. Also present in the container are two detached pieces of adipose tissue showing membranous tissue consistent with breast capsule measuring in aggregate 7 x 5.5 x 2 cm. Also present in the container is a collapsed implant measuring 13.5 x 13 x 0.5 cm. Inscription on the implants shows ?[id number], 350 cc? and inscription also says on the top ?[place].? The breast tissue does not show any obvious skin lesion. The specimen is inked as follows: superior margin - blue, inferior margin - green, posterior margin - black. Sections of the breast tissue do not reveal any mass lesion. Budget Assistant sections are submitted in eight cassettes as follows: 1 - nipple, entirely submitted, 2-7 - breast tissue (2 & 3 - medial portion, 4 & 5 - central portion and 6 & 7 - lateral portion), 8 - representation section from the detached pieces of tissue with capsule. Sections will be submitted after additional fixation. / LALO:elly 03/05/21 TC:5 CPT: 36128, 33085
[2021-03-04] MEDS: Cefazolin 2 GM in 0.9% Normal Saline 100 ML IV (10:40)
[2021-03-04] MEDS: Lidocaine 1% /Epi 1:100 (20ml) 20 ML Vial (11:03)
--- NOTE | 2021-03-04 12:06 | OP.PCM_ITS ---
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 Left breast cancer. 2. Removal ruptured left breast implant. 3. Planned acquired absence bilateral breasts. 4. Cancer phobia right breast. 5. Ruptured right breast implant. 6. Capsular contracture right breast. 7. Family history of breast cancer. 8. Personal history of skin cancer. 9. Former smoker. Post-Operative Diagnosis: Same. Surgery/Procedure Performed:: 1. Removal ruptured saline implant right breast with capsulectomy. 2. Prophylactic mastectomy right breast. Description of Surgical Findings:: 66 year old woman presents to discuss further breast reconstruction. Recently she had left breast cancer that led to a mastectomy on 07/23/20. Postoperatively she needed IV chemotherapy and recently finished in early December. She also has a history of having breast implants. She had saline implants placed at [facility] in 2003. She had her left breast saline implant removed 08/25/19 after it ruptured. Pathology at that time was negative. Her right implant ruptured in June 2020. Plans were being made to remove that ruptured implant as well and underwent a mammogram and ultrasound. This necessitated a biopsy on the left which led to the breast cancer diagnosis. Now that the chemotherapy is finished, she is interested in having the ruptured saline implant removed on the right with capsulectomy. Because of her recent diagnosis of left breast cancer, she has developed some cancer phobia on the right breast and is interested in a prophylactic mastectomy to minimize risk of developing breast cancer on the right. Patient was informed of the risks and complications of the procedure including alternatives to surgery. These were discussed with the patient personally. Patient voices understanding and wishes to proceed. Some of the risks and complications were included in a form from the [employer]. Potential risks and complications included but not inclusive of bleeding, infection, seroma, hematoma, bruising, swelling, prolonged need for drains, loss of sensation to skin, partial or complete loss of skin flap, wound breakdown, need for wound care, poor scarring, poor aesthetic outcome, intra operative cardiac or neurologic events, DVT, PE, and reaction to anesthesia. Encouraged patient to stop smoking as it may have deleterious effects on wound healing. Patient stopped smoking after her breast cancer diagnosis. I used Yessi absorbable hemostat. Reference Number - [id number]. Lot Number - [id number]. November 10, 2025. Surgeon: Gregorio Carolina calibration technician: Basil Carrera Type of Anesthesia: General Specimen's removed: 1. Right breast, implant, and capsule to Pathology. 2. Capsular tissue right breast to Microbiology. Drains: Joce. Estimated Blood Loss (mL): 150. Description of Procedure: Patient was taken to OR in supine position and was placed under general anesthesia. The right breast was prepped and draped in the usual fashion. SCD's were placed for DVT prophylaxis. Perioperative antibiotics were given intravenously. A horizontal ellipse was marked on the right breast to include the nipple areolar complex. Using xylocaine with epinephrine, the right breast markings were infiltrated. After waiting 5 minutes for the anesthetic to take effect, I made a horizontal elliptical incision over the nipple areolar complex. I proceeded with the prophylactic mastectomy by dissecting the breast tissue off the breast skin flaps at the level of Jane's fascia. I dissected down to the chest wall at the level of the pectoralis muscular fascia medially toward the sternum, superiorly toward the clavicle, inferiorly to the inframammary fold, and laterally to the anterior axillary line. The breast tissue was sent to Pathology for analysis to rule out carcinoma. This allowed easier exposure to the ruptured saline implant with associated capsular contracture located in a submuscular position. A capsulotomy was performed and I removed the ruptured saline implant. Some exudate was seen in the capsular pocket and a wound culture was obtained. I then proceeded with capsulectomy. Hemostasis was obtained with electrocautery. I then irrigated the breast pocket with Irrisept 0.05% chlorhexidine solution which was followed by saline irrigation. I placed a size 15 Joce drain into the breast pocket through a separate stab incision laterally and secured to the skin edge with 3-0 Nylon suture. I sprayed Yessi absorbable hemostat into the breast wound to minimize seroma formation. I then closed the mastectomy incision in a layered fashion with 3-0 Monocryl interrupted sutures for the deep dermis and subcutaneous tissue. The skin was approximated with 3-0 V lock unidirectional barbed running subcuticular suture which was followed with Histoacryl skin tissue adhesive. Kerlix gauze was applied followed by a compression linsey wrap. Patient tolerated the procedure well and was sent to PACU in satisfactory condition. Patient will be sent upstairs for continued postop care. She will be discharged tomorrow when tolerating po analgesia. She will have the drain removed in the office in 10-14 days. Grafts/Implants Used: Yessi. Complications None. Admit VTE Documentation VTE Present on Admission: No VTE Mechan Device Prophylaxis: SCD's VTE Pharm Prophylaxis ordered?: Yes Addendum Addendum: Surgery Charges CPT - 28263 ICD-10 - C50.412, T85.43xA, T85.44xA, F40.298, Z90.13, Z98.86, Z80.3, Z85.828, Z87.891 38106 C50.412, F40.298, Z90.13, Z98.86, T85.43xA, T85.44xA, Z80.3, Z85.828, Z87.891
[2021-03-04] MEDS: Lactated Ringers 1,000 ML 60 ML IV ×2 (12:43→15:25)
[2021-03-04] MEDS: Cefazolin 1 GM/50 ML BAG IV ×2 (15:25→21:41)
[2021-03-04] MEDS: Ensure Surgery 237 ML LIQUID PO (15:38)
[2021-03-04] MEDS: oxyCODONE 5 MG Tablet PO (15:38)
[2021-03-04] MEDS: Docusate Sodium 100 MG Capsule PO (21:41)
[2021-03-05 01:40] VITALS: BP 95/58; PULSE 74; RESP 18; TEMP 36.7; O2SAT 95
[2021-03-05] MEDS: Cefazolin 1 GM/50 ML BAG IV ×2 (05:37→13:52)
[2021-03-05] MEDS: Acetaminophen 500 MG Tablet 1000 MG PO ×2 (05:37→12:13)
[2021-03-05 05:40] VITALS: BP 93/55; PULSE 81; RESP 16; TEMP 36.8; O2SAT 93
[2021-03-05 06:56] LABS: Hematocrit 37.6 % (37-47); Hemoglobin 11.7 g/dL (12.0-15.0); Mean Corp Hgb Conc 31.1 g/dL (32-36); Mean Corpuscular Hgb 29.1 pg (27.0-32.0); Mean Corpuscular Volume 93.5 fL (81-99); Mean Platelet Vol. 9.7 fl (6.2-12.0); Platelet Count 262 K/mm3 (150-450); RBC Distribution Width CV 14.3 % (11.6-14.6); Red Blood Count 4.02 M/mm3 (4.2-5.4); White Blood Count 7.9 K/mm3 (4.4-11.0)
[2021-03-05 07:42] LABS: Anion Gap 4 (5-15); BUN 13 mg/dL (7-18); BUN/Creat Ratio 15.2 RATIO (10-20); Chloride 107 mmol/L (98-107); Creatinine, Serum 0.86 mg/dL (0.55-1.02); EST Glomerular Filtration Rate 70 mL/min (>60); Est Glom Filt Rate - Afr Amer 85 mL/min (>60); Glucose 88 mg/dL (74-106); Potassium 4.3 mmol/L (3.5-5.1); Prealbumin 22.9 mg/dL (20.0-40.0); Sodium Level 141 mmol/L (136-145)
[2021-03-05 10:12] VITALS: BP 104/76; PULSE 84; RESP 16; TEMP 36.5; O2SAT 95
[2021-03-05] MEDS: Docusate Sodium 100 MG Capsule PO (10:17)
[2021-03-05] MEDS: Enoxaparin 40 MG/0.4 ML Syringe SC (10:17)
[2021-03-05] MEDS: buPROPion (XL) 300 MG TABLET.XL PO (10:17)
[2021-03-05] MEDS: Lactated Ringers 1,000 ML 15 ML IV (12:13)
[2021-03-05] MEDS: oxyCODONE 5 MG Tablet PO (12:13)
--- NOTE | 2021-03-05 14:25 | PCM.PN.SRG ---
Subjective Subjective Postop #1 Patient sitting up at the edge of bed. States pain is well controlled. She would like to go home this evening. Objective Data Objective Data Vital Signs: Vital Signs Temp Pulse Resp BP Pulse Ox 97.7 F L 84 16 104/76 95 03/05/21 10:12 03/05/21 10:12 03/05/21 10:12 03/05/21 10:12 03/05/21 10:12 Oxygen Flow Rate (L/min) 6 Oxygen Delivery Method Room Air Weight: 120 lb 2.431 oz Body Mass Index (BMI) 22.6 Intake & Output: Intake and Output for Last 24 Hours 03/03/21 03/04/21 03/05/21 23:59 23:59 23:59 Intake Total 1751 / 1751 1296.25 / 1296.25 Output Total 115 / 115 80 / 80 Balance 1636 / 1636 1216.25 / 1216.25 Joce drain 195 ml drainage Lab / Micro Data Result Diagrams: 03/05/21 06:15 03/05/21 06:15 Labs: Laboratory Results - last 24 hr 03/05/21 03/05/21 06:15 06:15 WBC 7.9 RBC 4.02 L Hgb 11.7 L Hct 37.6 MCV 93.5 MCH 29.1 MCHC 31.1 L RDW Std Deviation 49.0 H RDW Coeff of Carmelo 14.3 Plt Count 262 MPV 9.7 Sodium 141 Potassium 4.3 Chloride 107 Carbon Dioxide 30.0 Anion Gap 4 L BUN 13 Creatinine 0.86 Estim Creat Clear Calc 47.90 Est GFR (MDRD) Af Amer 85 Est GFR (MDRD) Non-Af 70 BUN/Creatinine Ratio 15.2 Glucose 88 Calcium 9.0 Prealbumin 22.9 Micro: Microbiology 03/04/21 12:00 Tissue - Breast Gram Stain - Final 03/04/21 12:00 Tissue - Breast Wound Culture - Preliminary No growth-Final to follow 03/03/21 08:51 Interface Orders SARS-CoV-2 Antigen (Rapid) - Final Physical Exam Const oriented x3 and no apparent distress Resp normal respiratory effort Cardio regular rate GI soft to palpation and non-tender Extremity full ROM Skin Skin Narrative: Right mastectomy incision is dry and intact. Serosanguineous drainage in the Joce drain. Operative dressing removed. KENYATTA wrap for compression applied. Neuro oriented x3 Psych mental status grossly normal Assessment & Plan Assessment/Plan (1) Acquired absence of bilateral breasts and nipples: (2) Cancer of left breast: QUALIFIERS: Breast location: upper outer quadrant of breast Estrogen receptor status: positive Patient sex: female Qualified Code(s): C50.412 - Malignant neoplasm of upper-outer quadrant of left female breast; Z17.0 - Estrogen receptor positive status [ER+] (3) Cancer phobia: (4) History of removal of left breast implant: (5) Capsular contracture of breast implant: (6) Personal history of skin cancer: (7) Family history of breast cancer: (8) Former smoker: PLAN: Patient is doing well. She states that her pain is well controlled. Right mastectomy incision is dry and intact. Joce drain intact and draining serosanguineous drainage. She is currently on Cefazolin. On discharge, she will take Cefadroxil until the drain comes out. She is to wear KENYATTA wrap for compression at all times. She has 20 lb weight lifting restriction. Prealbumin 22.9. Encouraged increase in protein intake to help with wound healing. Follow up in our office in one week. Charges/Coding Procedures Integumentary [id number]: 10278 Global Visit
--- NOTE | 2021-03-05 14:37 | CASEMGMT ---
MIGUEL PINZON NOTE: To room to discuss discharge planning. Pt resting in bed. Awake/A/O. MIGUEL PINZON introduced self and role. Pt states wishes to return home @ discharge. She states she lives alone, is independent, uses no DME, and has no discharge planning needs, questions, or concerns. Lane ATKINSN MIGUEL PINZON
--- NOTE | 2021-03-05 14:52 | DCINST_ITS ---
Discharge Instructions Diet Discharge Diet: No restrictions Activity Discharge Activity: May Not Drive (While taking pain meds) and May Not Shower (until drain is removed.) May resume sexual activity in: No Restrictions Lifting Restrictions: 20 lb weight lifting restriction. Dressing / Incision Call your doctor if your incision/area has: Continuous Slow Oozing, Sudden Increased Bleeding, Increased Pain/ Swelling, Increased Redness, Foul Smelling Discharge and Swelling at the incision site Call your doctor if you observe: Fever of 101 or Higher, Coldness, Increased Pain, Inability to urinate, Inability to have a bowel movement, Shortness of breath, Swelling in the ankles, Chest pain, Calf discomfort and Uncontrolled pain Change Dressing in: 1 day (Change dressing daily or every other day) Cleanse incision/area with: Keep Dressing Clean & Dry Drain: Suction Additional Dressing/Incision Instructions:: Do not get drain insertion site wet. May change dressing daily or every other day. Keep log on drainage amount from drain. Follow Up Care Please Follow Up With: Dr. 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 Discharge Plan Admission Admit Date/Time: 03/04/21 16:01 Attending Provider: Gregorio Carolina Primary Care Provider: Rob Duque Discharge Orders/Prescriptions Prescriptions: New docusate sodium [DOK] 100 mg Capsule 100 mg PO BID 15 Days Qty: 30 RF: 1 cefadroxil 500 mg capsule 500 mg PO BID 14 Days Qty: 28 RF: 0 oxycodone-acetaminophen [Percocet] 5-325 mg tablet 1 tab PO Q4H PRN (Reason: pain (scale score 7-10)) 7 Days Qty: 40 RF: 0 Continued alprazolam [Xanax] 0.5 mg tablet 0.5 mg PO BID-TID PRN (Reason: Anxiety) RF: 0 amlodipine besylate 5 mg tablet 5 mg PO DAILY RF: 0 cholecalciferol (vitamin D3) 5,000 UNIT capsule 5,000 unit PO DAILY RF: 0 bupropion HCl 150 MG tablet extended release 24 hr 300 mg PO DAILY RF: 0 cetirizine 10 MG capsule 10 mg PO DAILY PRN (Reason: allergies) RF: 0 calcium carbonate-vitamin D2 600 mg calcium- 200 unit Tablet 1 tab PO DAILY RF: 0 Referrals / Follow Up: Rob Duque MD [Primary Care Provider] - Gregorio Carolina MD [STAFF PHYSICIAN] - Disposition Disposition (needs filled in before D/C Order can be placed): Home, Self Care
[2021-03-05 15:54] VITALS: O2SAT 95
[2021-03-05 17:00] VITALS: BP 126/65; PULSE 75; RESP 18; TEMP 36.6; O2SAT 98
== END 2021-03-05 17:29 | disposition home or self-care (01) ==
LOC: SDC 16:21 → MS3 18:53
PROVIDERS: Anesthesiology; Admitting Provider Surgery; PCP Family Medicine; Referring Provider Surgery; Visit Provider Surgery
PROC: (CPT 19371; principal; 2021-03-04 10:00)
DX: C50.412 Malignant neoplasm of upper-outer quadrant of left female breast (principal); T85.49XA Other mechanical complication of breast prosthesis and implant, initial encounter; Y81.2 Prosthetic and other implants, materials and accessory general- and plastic-surgery devices associated with adverse incidents; T85.44XA Capsular contracture of breast implant, initial encounter; Z87.891 Personal history of nicotine dependence; F45.29 Other hypochondriacal disorders; N65.1 Disproportion of reconstructed breast; Z79.899 Other long term (current) drug therapy; I10 Essential (primary) hypertension; F41.9 Anxiety disorder, unspecified; F32.9 Major depressive disorder, single episode, unspecified; Z17.0 Estrogen receptor positive status [ER+]
CPT/HCPCS: 00400; 19303; 19371; 36415; 80048; 82962; 83735; 84134; 85027; 87070; 87075; 87102; 87205; 87206; 87426; 88300; 88305; 88307; 93005; 94762; 96365; 96366; 96372; 99218; C9803; J7120; G0378; G0379; J2405; J3475

== ENCOUNTER → 2021-03-28 11:27 | Outpatient (CLI) | payer MEDICARE, MEDICAID, SELFPAY ==
[2021-03-12 14:21] VITALS: BMI 22.6
--- NOTE | 2021-03-28 | FLU_PTH ---
PATIENT: SEVEN MOORE LOC: [facility]#:[id number] AGE/SX: 70/F ROOM: RE03/28/[address]: JESS Hanson : 1955 BED: DIS: SPEC #: [id number] RECD: 03/28/21 12:46 STATUS: YVETTE ANNEMARIE #: [id number] NISHI: 03/28/21 00:[address]: Inés Huerta NP DEPT: CYTOLOGY RECD BY: Oc Woods ENTERED: 03/28/21 13:31 SP TYPE: Fluid OTHR DR: Dr. Eder Duque MD Tissues: Right breast, NOS Procedures: Special Stain Group II Surgery Specimen Level IV Cytospin Fluid HEADER OPERATION: Ultrasound-guided seroma drainage at right mastectomy site PRE-OP DIAGNOSIS: Seroma TISSUE SUBMITTED: Seroma fluid for cytology DIAGNOSIS CYTOLOGY Seroma fluid of right mastectomy site (cytospin and cell block): Negative for malignant cells. See comment. AM:elly 03/31/2021 COMMENT The specimen contains the macrophages and polymorphous lymphocytes. Clinical correlation is suggested. CYTOLOGY STUDY Slides are reviewed. CYTOLOGY GROSS Received is 40 ml of cloudy red fluid labeled with the patient's name and and designated per the requisition as seroma. Submitted for cytology preparation including cell block. / elly 03/28/2021 TC:5 CPT: 60826, 04776
--- NOTE | 2021-03-28 11:28 | US_ITS ---
PROCEDURE: Percutaneous drainage of a seroma in the right anterior chest following right mastectomy. DATE OF EXAMINATION: 03/28/2021. INDICATION: Female, 66 years old. Seroma at the mastectomy site. PHYSICIAN: Dr. DOLORES Garay CONSENT: The risks, benefits and alternatives to the procedure were explained to the patient, and the patient agreed to the procedure and signed the consent. STERILE BARRIER TECHNIQUE: The following sterile barrier precautions were used during the procedure: hand hygiene; use of 2% chlorhexidine aseptic; use of a cap, mask, sterile gown, sterile gloves, sterile full body drape, and a large sterile sheet. PROCEDURE/TECHNIQUE: (All elements of maximal sterile barrier technique followed, including US elements as applicable) The risks, benefits, and alternatives to the procedure were explained to patient, and the patient agreed to the procedure and signed a consent form for the procedure. A timeout was performed to confirm the patient''s identity, the type of procedure, to be performed and the site of entry. Under direct sonographic guidance, a 5 Maori drainage catheter was placed into the seroma. 50 cc of serosanguineous fluid was aspirated. US/Cyst Puncture IMPRESSION: 50 cc of serosanguineous fluid was aspirated. The specimen was sent to the laboratory. Electronically Signed: Osbaldo Herzog MD at 13:02 EDT , Service support ,
[2021-03-28] MEDS: Lidocaine 2% (20 ml mdv) 20 ML Vial (12:27)
== END | disposition home or self-care (01) ==
PROVIDERS: PCP Family Medicine; Referring Provider Nurse Practitioner Family; Visit Provider Nurse Practitioner Family
DX: M96.843 Postprocedural seroma of a musculoskeletal structure following other procedure (principal)
CPT/HCPCS: 10160; 76942; 87070; 87075; 87205; 88108; 88305; 88313

== ENCOUNTER → 2021-04-03 13:34 | Outpatient (CLI) | payer MEDICARE, MEDICAID, SELFPAY ==
[2021-03-12 14:21] VITALS: BMI 22.6
[2021-04-03 15:36] LABS: ALB/GLOB Ratio 1.1 RATIO (0.9-2.4); AST(SGOT) 14 U/L (15-37); Alanine Aminotransfer ALT/SGPT 22 U/L (13-56); Albumin, Serum 3.8 g/dL (3.2-5.0); Alkaline Phosphatase 100 U/L (45-117); Anion Gap 5 (5-15); BUN 14 mg/dL (7-18); BUN/Creat Ratio 13.2 RATIO (10-20); Calcium,Total 9.2 mg/dL (8.5-10.1); Chloride 107 mmol/L (98-107); Creatinine, Serum 1.06 mg/dL (0.55-1.02); EST Glomerular Filtration Rate 55 mL/min (>60); Est Glom Filt Rate - Afr Amer 66 mL/min (>60); Globulin 3.5 g/dL (2.2-4.2); Glucose 91 mg/dL (74-106); Potassium 3.9 mmol/L (3.5-5.1); Protein, Total 7.3 g/dL (6.4-8.2); Sodium Level 140 mmol/L (136-145)
[2021-04-03 15:45] LABS: Cholesterol 309 mg/dL (200); High Density Lipoprotein 54 mg/dL; Triglycerides 341 mg/dL; Very Low Density Lipoprotein 68 mg/dL (5-40)
== END ==
PROVIDERS: Nurse Practitioner Family; PCP Family Medicine; Referring Provider Family Medicine; Visit Provider Family Medicine
DX: Z13.220 Encounter for screening for lipoid disorders (principal); I10 Essential (primary) hypertension; B49 Unspecified mycosis; Z90.13 Acquired absence of bilateral breasts and nipples
CPT/HCPCS: 36415; 80053; 80061

== ENCOUNTER 2021-05-15 12:01 | Inpatient (IN) | payer MEDICARE, MEDICAID, SELFPAY ==
[2021-05-15 12:01] VITALS: BP 103/77; PULSE 86; RESP 18; TEMP 36.7; BMI 21.1
--- NOTE | 2021-05-15 13:39 | CT_ITS ---
STUDY: CT ABDOMEN AND PELVIS WITHOUT CONTRAST REASON FOR EXAM: Female, 66 years old. lower abd pain, constipation RADIATION DOSAGE (If Supplied By Facility): CTDIvol = ( 6.04 ) mGy, DLP = ( 271.80 ) mGycm TECHNIQUE: Transaxial images were obtained from the dome of the diaphragm to the symphysis pubis without oral contrast, and without intravenous contrast. Sagittal and coronal images were reconstructed. Individualized dose optimization techniques were used for this CT. COMPARISON: None. FINDINGS: The visualized lung bases are unremarkable. The visualized portions of the heart are within normal limits. Normal liver. Normal gallbladder and extrahepatic biliary system. Normal spleen. Normal pancreas. Normal bilateral adrenal glands. Normal right kidney. Pelvic left kidney. Normal visualized stomach. Normal small intestine. There are multiple colonic diverticula consistent with diverticulosis. Large amount of stool throughout the colon suggestive of constipation. The appendix is visualized and appears normal. Normal abdominal aorta. Normal inferior vena cava. Normal retroperitoneum. Normal urinary bladder. Tiny amount of free fluid within the abdomen and pelvis which is abnormal in a postmenopausal patient but without obvious etiology. Normal abdominal wall. Normal osseous structures. CT/Abdomen/Pelvis without Cont IMPRESSION: 1. Suspect constipation. 2. Sigmoid diverticulosis without diverticulitis. 3. Tiny amount of free fluid which is abnormal in a postmenopausal female but without obvious etiology. Electronically Signed: Gaston Louis MD at 14:54 EDT Tel , Service support ,
--- NOTE | 2021-05-15 13:42 | ED.VIS.GI ---
HPI HPI - GI History of Present Illness Chief Complaint: Constipation Informant: patient and family Narrative Narrative: Presents report concerns of constipation. Normal bowel movement 3 days ago. However typical bowel movements are every 4 days. She does not take any opioid medications. Last evening took MiraLAX, suppository, laxative no bowel movements. She is passing gas. Hysterectomy in the past. Reports increasing lower abdominal pain also yesterday is progressing. Colonoscopy 2 years ago. No history of diverticulitis. Denies urinary symptoms. Denies fever chills or sweats. Had transient nausea. None currently. Tolerating oral fluids. Reports her medications causes her to have increased dry mouth therefore drinks water. Has tolerated oral intake. Prior similar symptoms: Yes [facility] Medical History (Updated 05/15/21 @ 19:[address] Alfredito Maldonado DO) Acquired absence of bilateral breasts and nipples Anxiety Basal cell carcinoma (BCC) of skin of left breast 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 Breast cancer, left Breast implant removal status Cancer Cancer of left breast Capsular contracture of breast implant Depression Disproportion of reconstructed breast Former smoker History of edema History of pain when walking History of removal of left breast implant History of steroid therapy Hx of echocardiogram Hypertension Left breast mass Neoplasm of skin of forehead Osteoporosis Personal history of skin cancer Rupture of implant of left breast Rupture of implant of right breast Shortness of breath on exertion Wears glasses Home Medications alprazolam 0.5 mg tablet 0.25 mg PO DAILY PRN 09/19/18 [History Last Taken 05/14/21] cholecalciferol (vitamin D3) 5,000 unit PO DAILY 12/16/18 [History Last Taken 05/14/21] fluconazole 200 mg tablet 400 mg PO DAILY 30 Days #60 tab 04/03/21 [Rx Last Taken 05/14/21] buspirone 15 mg tablet 15 mg PO BID 05/07/21 [History Last Taken 05/14/21] amlodipine 5 mg PO DAILY 05/15/21 [History Last Taken 05/14/21] bupropion HCl 300 mg PO DAILY 05/15/21 [History Last Taken 05/14/21] Allergy/AdvReac Type Severity Reaction Status Date / Time No Known Allergies Allergy Verified 05/07/21 09:42 Family History Father Cancer Brother Cancer Sister Cancer Breast cancer Diabetes Mother Hypertension Surgical History H/O section H/O: hysterectomy History of basal cell carcinoma excision History of left breast biopsy (~07/10/20) History of vascular access device Hx of breast implants, bilateral Hx of breast surgery S/P left mastectomy Social History Smoking Status: Former smoker ROS ROS ED Constitutional Constitutional ED: Denies chills, fever(s) or sweats Eyes Eyes: Denies change in vision ENT ENT ED: Denies dysphagia or sore throat Cardiovascular Cardiovascular: Denies chest pain, leg edema, palpitations or racing heartbeat Respiratory/Chest Respiratory/Chest: Denies cough, dyspnea or dyspnea on exertion Gastrointestinal Gastrointestinal: Reports abdominal pain, constipation, nausea and vomiting; Denies diarrhea Genitourinary Genitourinary ED: Denies dysuria, hematuria or urinary frequency Musculoskeletal Musculoskeletal: Denies back pain, extremity pain or neck pain Integumentary Denies rash or wounds Neurologic Neurologic: Denies headache(s), paresthesias or weakness EXAM Physical Exam Const Vital Signs: 05/15/21 12:01 Temperature 98.0 F Temperature Source Temporal Pulse Rate 86 Respiratory Rate 18 Blood Pressure 103/77 Blood Pressure Mean 85 Positive well nourished and well developed Constitutional Narrative: Uncomfortable, nontoxic. General Appearance ED: well developed HEENT Reports moist mucous membranes normocephalic and atraumatic Eyes PERRL, EOMs intact bilaterally and conjunctivae normal General Eye ED: Yes normal appearance of both eyes Neck no lymphadenopathy and supple General: Negative for tenderness Chest Wall Chest: Negative for tenderness Resp normal respiratory effort and normal air movement Effort and Inspection: symmetric chest movement; Negative for respiratory distress Cardio regular rate, regular rhythm and no murmurs Peripheral Pulses: pulses 2+ throughout GI normal to inspection, nondistended, normoactive bowel sounds GI Narrative: Generalized tenderness more left lower quadrant suprapubic. Negative Montelongo's McBurney's tenderness. Palpation: Negative for guarding or rebound tenderness present Back/Spine no CVA tenderness and no thoracic nor lumbar tenderness Extremity normal to inspection General Extremety ED: Negative for edema or tenderness General Extremity: Negative for edema Neuro oriented x3 and no sensory deficits noted Sensorium / Orientation: awake and alert Skin no rashes or lesions noted and no wounds MDM MDM MDM Narrative Medical decision making narrative: Patient nonsurgical abdomen however had tenderness in the lower abdomen on exam. Secondary to pain with her constipation work-up to rule out diverticulitis. Laboratory studies obtained noted a white count is 26.3 with a left shift. Urine noted 100 leukocytes however no other acute findings. I sent for the culture. She is asymptomatic with this. CT scan negative for any acute process with a normal appendix. Noted constipation. Due to her leukocytosis I discussed with hospitalist Dr. Aquino for admission. We will continue fluids for concerns for dehydration component. Will await cultures prior to antibiotics. Lactic acid was added return at 2.2. Abdomen was soft on reevaluation. Of note history of breast cancer however no chemotherapy since December. Lab Data Attestation: I reviewed the patient's lab results. Labs: Laboratory Results - last 24 hr 05/15/21 05/15/21 05/15/21 14:00 14:00 14:10 WBC 26.3 H RBC 5.81 H Hgb 16.6 H Hct 50.5 H MCV 86.9 MCH 28.6 MCHC 32.9 RDW Std Deviation 47.7 H RDW Coeff of Carmelo 15.0 H Plt Count 408 MPV 9.2 Immature Gran % (Auto) 0.500 Neut % (Auto) 90.2 H Lymph % (Auto) 2.8 L [place] % (Auto) 5.6 Eos % (Auto) 0.4 Baso % (Auto) 0.5 Absolute Neuts (auto) 23.8 H Absolute Lymphs (auto) 0.73 L Nucleated RBC % 0 Sodium 132 L Potassium 4.2 Chloride 99 Carbon Dioxide 24.0 Anion Gap 9 BUN 29 H Creatinine 1.21 H Estim Creat Clear Calc 32.41 Est GFR (MDRD) Af Amer 57 L Est GFR (MDRD) Non-Af 47 L BUN/Creatinine Ratio 24.0 H Glucose 136 H Lactic Acid Calcium 9.6 Total Bilirubin 0.60 AST 19 ALT 23 Alkaline Phosphatase 110 Total Protein 7.8 Albumin 3.6 Globulin 4.2 Albumin/Globulin Ratio 0.9 Lipase 76 Urine Color Kaitlin Urine Clarity Sl. Cloudy Urine pH 5.0 Ur Specific [place] 1.020 Urine Protein 100 H Urine Glucose (UA) Normal Urine Ketones 15 H Urine Occult Blood 150 H Urine Nitrite Negative Urine Bilirubin 3 H Urine Urobilinogen 8 H Ur Leukocyte Esterase 100 H Urine RBC 0-5 SEEN Urine WBC 0 SEEN Ur Squamous Epith Cells 0-5 SEEN Urine Bacteria 0 SEEN Urine Mucus 0 SEEN 05/15/21 14:40 WBC RBC Hgb Hct MCV MCH MCHC RDW Std Deviation RDW Coeff of Carmelo Plt Count MPV Immature Gran % (Auto) Neut % (Auto) Lymph % (Auto) [place] % (Auto) Eos % (Auto) Baso % (Auto) Absolute Neuts (auto) Absolute Lymphs (auto) Nucleated RBC % Sodium Potassium Chloride Carbon Dioxide Anion Gap BUN Creatinine Estim Creat Clear Calc Est GFR (MDRD) Af Amer Est GFR (MDRD) Non-Af BUN/Creatinine Ratio Glucose Lactic Acid 2.2 H* Calcium Total Bilirubin AST ALT Alkaline Phosphatase Total Protein Albumin Globulin Albumin/Globulin Ratio Lipase Urine Color Urine Clarity Urine pH Ur Specific [place] Urine Protein Urine Glucose (UA) Urine Ketones Urine Occult Blood Urine Nitrite Urine Bilirubin Urine Urobilinogen Ur Leukocyte Esterase Urine RBC Urine WBC Ur Squamous Epith Cells Urine Bacteria Urine Mucus Radiography Diagnostic Testing: Radiology Impression Abdomen/Pelvis CT 05/15/21 13:39 IMPRESSION: 1. Suspect constipation. 2. Sigmoid diverticulosis without diverticulitis. 3. Tiny amount of free fluid which is abnormal in a postmenopausal female but without obvious etiology. Electronically Signed: Gaston Louis MD at 14:54 EDT Tel , Service support , Chest X-Ray 05/15/21 16:30 IMPRESSION: Normal x-ray examination of the chest. Electronically Signed: Gaston Louis MD at 17:10 EDT Tel , Service support , Discharge Plan Dx/Rx/DC Orders Clinical Impression: Leukocytosis, Abdominal pain, Constipation Disposition Disposition: Acute Care Hospital [facility] Discharge Date/Time: 05/15/21 17:35
[2021-05-15] MEDS: 0.9% Normal Saline 1,000 ML 1000 ML IV (14:06)
[2021-05-15] MEDS: Ondansetron 4 MG/2 ML Vial IV (14:06)
[2021-05-15] MEDS: Morphine 2 MG/ML Syringe IV (14:07)
[2021-05-15 14:08] LABS: Absolute Lymphocyte Count 0.73 X10^3/uL (0.83-4.51); Absolute Neutrophil Count 23.8 X10^3/uL (2.0-7.7); Basophil# 0.13 X10^3/uL; Basophil% 0.5 % (0-1); Eosinophils% 0.4 % (0-5); Hematocrit 50.5 % (37-47); Hemoglobin 16.6 g/dL (12.0-15.0); Lymphocyte # 0.73 X10^3/ul (0.83-4.51); Lymphocyte % 2.8 % (19-41); Mean Corp Hgb Conc 32.9 g/dL (32-36); Mean Corpuscular Hgb 28.6 pg (27.0-32.0); Mean Corpuscular Volume 86.9 fL (81-99); Mean Platelet Vol. 9.2 fl (6.2-12.0); Monocyte# 1.47 X10^3/uL; Monocyte% 5.6 % (0-10); NRBC Flagged by Analyzer 0 % (0-5); Neutrophil # 23.76 X10^3/uL (2.7-7.7); Neutrophil % 90.2 % (47-70); POSITIVE DIFFERENTIAL YES; Platelet Count 408 K/mm3 (150-450); RBC Distribution Width SD 47.7 fl (35.1-43.9); Red Blood Count 5.81 M/mm3 (4.2-5.4); White Blood Count 26.3 K/mm3 (4.4-11.0)
[2021-05-15 14:10] LABS: Differential Indicated SCAN CRITERIA MET
[2021-05-15 14:19] LABS: Bacteria 0 SEEN /hpf (None Seen); Mucous, Urine 0 SEEN /hpf (<or=2+); White Blood Cells 0 SEEN /hpf (0-5)
[2021-05-15 14:24] LABS: Color, Urine Amber (Yellow); Glucose, Dipstick Normal (Normal); Ketone-Dipstick 15 mg/dl (Negative); Leukocyte Esterase-Dipstick 100 /ul (Negative); Nitrite-Dipstick Negative (Negative); Occult Blood-Urine 150 /ul (Negative); Protein-Dipstick 100 mg/dl (Negative); Urine Bilirubin Dipstick 3 mg/dL (Negative); Urine Clarity Sl. Cloudy (Clear); Urine Urobilinogen 8 mg/dl (Normal)
[2021-05-15 14:25] LABS: ALB/GLOB Ratio 0.9 RATIO (0.9-2.4); AST(SGOT) 19 U/L (15-37); Alanine Aminotransfer ALT/SGPT 23 U/L (13-56); Albumin, Serum 3.6 g/dL (3.2-5.0); Alkaline Phosphatase 110 U/L (45-117); Anion Gap 9 (5-15); BUN 29 mg/dL (7-18); Calcium,Total 9.6 mg/dL (8.5-10.1); Chloride 99 mmol/L (98-107); Creatinine, Serum 1.21 mg/dL (0.55-1.02); EST Glomerular Filtration Rate 47 mL/min (>60); Est Glom Filt Rate - Afr Amer 57 mL/min (>60); Estimated Creatinine Clearance 32.41 ml/min; Globulin 4.2 g/dL (2.2-4.2); Glucose 136 mg/dL (74-106); Lipase 76 U/L (73-393); Potassium 4.2 mmol/L (3.5-5.1); Protein, Total 7.8 g/dL (6.4-8.2); Sodium Level 132 mmol/L (136-145)
[2021-05-15 14:29] LABS: Red Blood Cells-Urine 0-5 SEEN /hpf (0-5); Squamous Epithelial Cells - UA 0-5 SEEN /hpf (5-10)
--- NOTE | 2021-05-15 16:30 | RAD_ITS ---
STUDY: X-RAY CHEST REASON FOR EXAM: Female, 66 years old. leukocytosis TECHNIQUE: Single AP portable view of the chest. COMPARISON: 09/27/2020 FINDINGS: Interval removal of the right internal jugular chest port. The lungs are clear and expanded. There is no demonstrated pleural abnormality. Normal size heart. Normal mediastinum and carlos. Normal visualized pulmonary arteries. Normal visualized aortic arch and descending thoracic aorta. Normal visualized thoracic spine. Normal visualized ribs, clavicles, and shoulders. There is no demonstrated abnormality of the visualized soft tissue structures of the upper abdomen. RAD/Chest 1 View (Portable) IMPRESSION: Normal x-ray examination of the chest. Electronically Signed: Gaston Louis MD at 17:10 EDT Tel , Service support ,
[2021-05-15 17:05] VITALS: BP 103/76; PULSE 92; RESP 14; TEMP 36.9; O2SAT 97
[2021-05-15 17:05] LABS: Lactic Acid 2.2 mmol/L (0.4-1.9)
--- NOTE | 2021-05-15 17:34 | HP.PCM.HOS_ITS ---
HPI - General General Date of Admission: 05/15/21 HPI Narrative SEVEN MOORE, is a 66 F who presented to the emergency department at [facility] on 05/15/2021 with a chief complaint of abdominal pain. The patient was concerned that she had issues with constipation. She states she typically moves her bowels every 4 days and her last normal bowel movement was 3 days ago but she has had increasing lower abdominal pain. She does not take any chronic opiate medications and states she typically takes Colace but had stopped doing this as of recently. She indicates she has been eating and drinking without issue. She notes about 2 days ago she had increased urinary frequency at night but this has since resolved. She denies any fever or chills. She states her abdominal pain started last evening and has progressively gotten a bit worse. She has had some transient nausea associated with it. She has just completed chemotherapy for breast cancer in December of this past year. Her vital signs in the emergency department were stable. She was afebrile. Her CBC showed a marked leukocytosis with a white count of 26.3, and elevated hemoglobin at 16.6(the patient is typically mildly anemic), and her platelet count is normal but elevated compared to her baseline. Her CMP shows mild hyponatremia, and elevated BUN and creatinine, normal LFTs and normal lipase. Her lactic acid is mildly elevated at 2.2. Given her abdominal pain a CT of her abdomen and pelvis was performed and showed sigmoid diverticulosis without diverticulitis and a large amount of stool throughout the colon suggesting constipation, but was otherwise normal. EKG was normal sinus rhythm without any ST-T wave changes and her chest x-ray showed no acute processes. She does meet sepsis criteria based on her labs but my suspicion is that she has extreme dehydration and sepsis cannot be ruled out. Blood cultures were obtained but antibiotics were not started at this time. She will be admitted to Medr floor for hydration and initiation of stool softeners and laxatives. [facility] Medical History Acquired absence of bilateral breasts and nipples Anxiety Basal cell carcinoma (BCC) of skin of left breast 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 Breast cancer, left Breast implant removal status Cancer Cancer of left breast Capsular contracture of breast implant Depression Disproportion of reconstructed breast Former smoker History of edema History of pain when walking History of removal of left breast implant History of steroid therapy Hx of echocardiogram Hypertension Left breast mass Neoplasm of skin of forehead Personal history of skin cancer Rupture of implant of left breast Rupture of implant of right breast Shortness of breath on exertion Wears glasses Home Medications alprazolam 0.5 mg tablet 0.25 mg PO DAILY PRN 09/19/18 [History Last Taken 05/14/21] cholecalciferol (vitamin D3) 5,000 unit PO DAILY 12/16/18 [History Last Taken 05/14/21] fluconazole 200 mg tablet 400 mg PO DAILY 30 Days #60 tab 04/03/21 [Rx Last Taken 05/14/21] buspirone 15 mg tablet 15 mg PO BID 05/07/21 [History Last Taken 05/14/21] amlodipine 5 mg PO DAILY 05/15/21 [History Last Taken 05/14/21] bupropion HCl 300 mg PO DAILY 05/15/21 [History Last Taken 05/14/21] Allergy/AdvReac Type Severity Reaction Status Date / Time No Known Allergies Allergy Verified 05/07/21 09:42 Family History Father Cancer Brother Cancer Sister Cancer Breast cancer Diabetes Mother Hypertension Surgical History H/O section H/O: hysterectomy History of basal cell carcinoma excision History of left breast biopsy (~07/10/20) History of vascular access device Hx of breast implants, bilateral Hx of breast surgery S/P left mastectomy Social History Smoking Status: Former smoker ROS Constitutional Constitutional: Reports change in weight and other Details: Weight loss has been intentional ; Denies anorexia, chills, fatigue, fever(s), malaise, night sweats or weakness Eyes Eyes: Denies blurry vision, change in eye color, change in vision, discharge from eye(s), double vision, erythema, eye pain, loss of vision or other ENT HEENT: Denies abnormal hearing, dysphagia, ear pain, epistaxis, headache(s), hearing loss, nasal congestion, nasal discharge, post nasal drip, sinus pressure, sore throat or other Cardiovascular Cardiovascular: Denies chest pain, claudication, dyspnea on exertion, edema, lightheadedness, orthopnea, palpitations, paroxysmal nocturnal dyspnea, rapid heart rate, syncope or other Respiratory/Chest Respiratory/Chest: Denies cough, dyspnea, excessive phlegm production, hemoptysis, productive cough, shortness of breath at rest, shortness of breath with exertion, wheezing or other Gastrointestinal Gastrointestinal: Reports abdominal pain, constipation and nausea; Denies coffee ground emesis, diarrhea, dyspepsia, hematemesis, hematochezia, loose stools, melena, vomiting or other Genitourinary Genitourinary: Reports urinary frequency; Denies burning urination, difficulty urinating, dysuria, hematuria, nocturia, urinary hesitancy, urinary inc ontinence, urinary urgency or other Musculoskeletal Musculoskeletal: Denies arthralgias, back pain, joint pain, joint stiffness, joint swelling, myalgias, neck pain or other Neurologic Neurologic: Denies abnormal gait, abnormal speech, confusion, disequilibrium, dizziness, focal weakness, headache(s), numbness, paresthesias, seizure-like activity, seizures, syncope, tingling, tremor(s) or other Psychiatric Psychiatric: Denies anxiety, depression, homicidal ideation, suicidal ideation or other Endocrine Endocrinology: Denies change in body appearance, cold intolerance, excessive sweating, heat intolerance, polydipsia, polyuria or other Hematologic/Lymphatic Hematologic/Lymphatic: Denies anemia, easy bleeding, easy bruising, ly mphadenopathy or other Allergic/Immunologic Allergic/Immunologic: Denies rhinitis, hives, eczemia, asthma or other Vital Signs Vital Signs Vital Signs: 05/15/21 12:01 05/15/21 17:05 Temperature 98.0 F 98.4 F Temperature Source Temporal Temporal Pulse Rate 86 92 Respiratory Rate 18 14 Blood Pressure 103/77 103/76 Blood Pressure Mean 85 85 Pulse Ox 97 Oxygen Delivery Method Room Air Weight Weight: 48.988 kg Body Mass Index (BMI) 21.1 Physical Exam Const alert, oriented x3, no apparent distress and average body habitus Constitutional Narrative: Older white female lying in bed, appears comfortable at this time, daughter at bedside, nontoxic-appearing, in no distress General Appearance: cooperative HEENT normocephalic, head/scalp atraumatic, hearing grossly normal bilaterally and oropharynx normal HEENT Narrative: Mucous membranes are dry, Mallampati is 2 Mouth: oral and palatal mucosa normal and moist mucous membranes abnormal Eyes PERRL, EOMs intact bilaterally and conjunctivae normal Neck no lymphadenopathy, supple, no JVD and no carotid bruits Neck Narrative: Trachea is midline, no thyroid enlargement noted Resp normal respiratory effort, no retractions, no use of accessory muscles and clear to auscultation bilaterally Auscultation: Negative for crackles, rales, rhonchi or wheezes Cardio regular rate, regular rhythm, S1 normal heart sound, S2 normal heart sound, no murmurs, no rub, no gallops, no clicks and no JVD GI normal to inspection, nondistended, normoactive bowel sounds, soft to palpation and non-distended; Negative for hepatosplenomegaly Palpation: tender other (Mild tenderness at bilateral lower quadrants) Extremity normal to inspection and no clubbing, cyanosis or edema Peripheral Pulses: Yes pulses 2+ throughout Skin no rashes or lesions noted, no wounds, skin turgor normal, no jaundice, no petechiae and no mottling Neuro oriented x3, CN's II-XII intact bilaterally, moves all extremities and no focal motor deficits Sensorium / Orientation: awake, alert, oriented to person, oriented to place and oriented to time Speech: speech normal Psych affect normal Results Lab / Micro Data Attestation: I reviewed the patient's lab results. Result Diagrams: 05/15/21 14:00 05/15/21 14:00 Labs: Laboratory Results - last 24 hr 05/15/21 14:00: WBC 26.3 H, RBC 5.81 H, Hgb 16.6 H, Hct 50.5 H, MCV 86.9, MCH 28.6, MCHC 32.9, RDW Std Deviation 47.7 H, RDW Coeff of Carmelo 15.0 H, Plt Count 408, MPV 9.2, Immature Gran % (Auto) 0.500, Neut % (Auto) 90.2 H, Lymph % (Auto) 2.8 L, [place] % (Auto) 5.6, Eos % (Auto) 0.4, Baso % (Auto) 0.5, Absolute Neuts (auto) 23.8 H, Absolute Lymphs (auto) 0.73 L, Nucleated RBC % 0 05/15/21 14:00: Sodium 132 L, Potassium 4.2, Chloride 99, Carbon Dioxide 24.0, Anion Gap 9, BUN 29 H, Creatinine 1.21 H, Estim Creat Clear Calc 32.41, Est GFR (MDRD) Af Amer 57 L, Est GFR (MDRD) Non-Af 47 L, BUN/Creatinine Ratio 24.0 H, Glucose 136 H, Calcium 9.6, Total Bilirubin 0.60, AST 19, ALT 23, Alkaline Phosphatase 110, Total Protein 7.8, Albumin 3.6, Globulin 4.2, Albumin/Globulin Ratio 0.9, Lipase 76 05/15/21 14:10: Urine Color Kaitlin, Urine Clarity Sl. Cloudy, Urine pH 5.0, Ur Specific [place] 1.020, Urine Protein 100 H, Urine Glucose (UA) Normal, Urine Ketones 15 H, Urine Occult Blood 150 H, Urine Nitrite Negative, Urine Bilirubin 3 H, Urine Urobilinogen 8 H, Ur Leukocyte Esterase 100 H, Urine RBC 0-5 SEEN, Urine WBC 0 SEEN, Ur Squamous Epith Cells 0-5 SEEN, Urine Bacteria 0 SEEN, Urine Mucus 0 SEEN 05/15/21 14:40: Lactic Acid 2.2 H* Micro: Microbiology 05/15/21 14:40 Nasal Secretion SARS-CoV-2 Antigen (Rapid) - Final Radiology Impression Abdomen/Pelvis CT 05/15/21 13:39 IMPRESSION: 1. Suspect constipation. 2. Sigmoid diverticulosis without diverticulitis. 3. Tiny amount of free fluid which is abnormal in a postmenopausal female but without obvious etiology. Electronically Signed: Gaston Louis MD at 14:54 EDT Tel , Service support , Chest X-Ray 05/15/21 16:30 IMPRESSION: Normal x-ray examination of the chest. Electronically Signed: Gaston Louis MD at 17:10 EDT Tel , Service support , Assessment & Plan Assessment/Plan (1) Abdominal pain: (2) Constipation: (3) MARZENA (acute kidney injury): (4) Dehydration: (5) Leukocytosis: (6) Erythrocytosis: (7) Hyponatremia: (8) Lactic acidosis: (9) Microscopic hematuria: PLAN: Abdominal pain with constipation -CT of the abdomen and pelvis shows diverticulosis without diverticulitis of the sigmoid colon and significant constipation -Start twice daily MiraLAX and stool softeners scheduled -Patient would like to forego an enema at this time but may be open to it if we are unable to get her bowels to move with the above -Encouraged improved hydration MARZENA secondary to dehydration -Patient appears very hemoconcentrated with a leukocytosis and erythrocytosis which are far from her baseline -Specific gravity of urine is 1.020 and dark in color -IV fluids at 100 cc/h -Repeat a.m. labs Hyponatremia -Suspect hypovolemic hyponatremia secondary to the above -Follow lab -If no improvement consider other causes including her antidepressants Leukocytosis/erythrocytosis -At baseline she is mildly anemic with a normal white count -Continue hydration -Outpatient has infection and suspect white count elevation should decline with just IV hydration -Cultures are pending -Patient does meet criteria for sepsis but I feel that sepsis cannot be ruled out at this time -No antibiotics at this time Lactic acidosis -Secondary to dehydration -IV fluids Microscopic hematuria -Would recommend outpatient follow-up with urology given tobacco abuse history Hypertension -Continue amlodipine] History of breast cancer -Patient status post mastectomy -Completed chemotherapy in December 2020 Depression/anxiety -Continue Wellbutrin, BuSpar, and as needed Xanax DVT prophylaxis -Lovenox -SCDs CODE STATUS -Full code-unverified Charges/Coding Visit Charges Inpatient E&M: 00142 Init Hosp L3
[2021-05-15 17:51] VITALS: BMI 22.0
[2021-05-15 18:00] VITALS: BP 107/78; PULSE 107; RESP 18; TEMP 37.6; O2SAT 96
[2021-05-15] MEDS: 0.9% Saline Lock 10 ML Syringe IV (18:22)
[2021-05-15] MEDS: 0.9% Normal Saline 1,000 ML 100 ML IV (18:22)
--- NOTE | 2021-05-15 18:56 | PCS.PANDOC ---
PANDEMIC DOCUMENTATION INITIATED: Date: 04/28/2021 Time: 190
[2021-05-15 20:31] VITALS: O2SAT 96
[2021-05-15 20:45] LABS: Reflex Lactate? Y
[2021-05-15 21:03] VITALS: BP 95/61; PULSE 102; RESP 18; TEMP 37.3; O2SAT 97
[2021-05-15] MEDS: Fluconazole 100 MG Tablet 200 MG PO (21:13)
[2021-05-15] MEDS: busPIRone 15 MG TABLET PO (21:13)
[2021-05-15] MEDS: Acetaminophen 325 MG Tablet 650 MG PO (21:13)
[2021-05-15] MEDS: Polyethylene Glycol 3350 17 GM PACKET PO (21:13)
[2021-05-15 22:56] LABS: Lactic Acid 1.2 mmol/L (0.4-1.9)
[2021-05-16] VITALS (7 sets, daily range): BP systolic 81–116; BP diastolic 50–75; PULSE 90–103; RESP 16–18; TEMP 36.6–38.1; O2SAT 91–98
[2021-05-16] MEDS: 0.9% Normal Saline 1,000 ML 100 ML IV (03:54)
[2021-05-16 04:44] LABS: Absolute Lymphocyte Count 1.36 X10^3/uL (0.83-4.51); Absolute Neutrophil Count 19.1 X10^3/uL (2.0-7.7); Basophil# 0.06 X10^3/uL; Basophil% 0.3 % (0-1); Eosinophils% 0.4 % (0-5); Hematocrit 42.9 % (37-47); Hemoglobin 14.1 g/dL (12.0-15.0); Lymphocyte # 1.36 X10^3/ul (0.83-4.51); Lymphocyte % 6.1 % (19-41); Mean Corp Hgb Conc 32.9 g/dL (32-36); Mean Corpuscular Hgb 28.4 pg (27.0-32.0); Mean Corpuscular Volume 86.5 fL (81-99); Mean Platelet Vol. 9.5 fl (6.2-12.0); Monocyte# 1.54 X10^3/uL; Monocyte% 6.9 % (0-10); NRBC Flagged by Analyzer 0 % (0-5); Neutrophil # 19.07 X10^3/uL (2.7-7.7); Neutrophil % 85.1 % (47-70); POSITIVE DIFFERENTIAL YES; POSITIVE MORPHOLOGY YES; Platelet Count 289 K/mm3 (150-450); RBC Distribution Width CV 15.5 % (11.6-14.6); RBC Distribution Width SD 49.2 fl (35.1-43.9); Red Blood Count 4.96 M/mm3 (4.2-5.4); White Blood Count 22.4 K/mm3 (4.4-11.0)
[2021-05-16 04:58] LABS: Differential Indicated SCAN CRITERIA MET
[2021-05-16 05:47] LABS: Differential Comment SCANNED
[2021-05-16 06:03] LABS: ALB/GLOB Ratio 0.7 RATIO (0.9-2.4); AST(SGOT) 16 U/L (15-37); Alanine Aminotransfer ALT/SGPT 18 U/L (13-56); Albumin, Serum 2.4 g/dL (3.2-5.0); Alkaline Phosphatase 78 U/L (45-117); Anion Gap 8 (5-15); BUN 19 mg/dL (7-18); BUN/Creat Ratio 24.6 RATIO (10-20); Calcium,Total 7.4 mg/dL (8.5-10.1); Chloride 107 mmol/L (98-107); Creatinine, Serum 0.77 mg/dL (0.55-1.02); EST Glomerular Filtration Rate 79 mL/min (>60); Est Glom Filt Rate - Afr Amer 96 mL/min (>60); Estimated Creatinine Clearance 39.21 ml/min; Globulin 3.3 g/dL (2.2-4.2); Glucose 105 mg/dL (74-106); Magnesium 1.9 mg/dL (1.6-2.6); Phosphorus 2.4 mg/dL (2.5-4.9); Potassium 3.5 mmol/L (3.5-5.1); Protein, Total 5.7 g/dL (6.4-8.2); Sodium Level 137 mmol/L (136-145); Thyroid Stim Hormone (TSH) 1.18 uIU/mL (0.358-3.74)
[2021-05-16] MEDS: Enoxaparin 40 MG/0.4 ML Syringe SC (08:37)
[2021-05-16] MEDS: busPIRone 15 MG TABLET PO ×2 (08:38→22:36)
[2021-05-16] MEDS: Polyethylene Glycol 3350 17 GM PACKET PO (08:38)
[2021-05-16] MEDS: buPROPion (XL) 300 MG TABLET.XL PO (08:38)
[2021-05-16] MEDS: amLODIPine 5 MG Tablet PO (08:38)
[2021-05-16] MEDS: Fluconazole 100 MG Tablet 200 MG PO (08:38)
--- NOTE | 2021-05-16 09:26 | CT_ITS ---
STUDY: CT ABDOMEN AND PELVIS WITH CONTRAST REASON FOR EXAM: Female, 66 years old. abdominal pain -- with po contrast RADIATION DOSAGE (If Supplied By Facility): CTDIvol = ( 12.84 ) mGy, DLP = ( 441.69 ) mGycm TECHNIQUE: Transaxial images were obtained from the dome of the diaphragm to the symphysis pubis with oral contrast. IV 100mL Isovue-300 was administered. Sagittal and coronal images were reconstructed. Individualized dose optimization techniques were used for this CT. COMPARISON: 05/15/2021 FINDINGS: Small bilateral pleural effusions with some bibasilar atelectasis. Small amount of ascites. The visualized portions of the heart are within normal limits. Normal liver. Normal gallbladder and extrahepatic biliary system. Normal spleen. Normal pancreas. Normal bilateral adrenal glands. Normal right kidney. Pelvic left kidney. There is a small hiatal hernia. Normal small intestine. Wall thickening of the proximal sigmoid colon and descending colon suggestive of colitis possibly pseudomembranous colitis. No loculated fluid collection to suggest abscess. No pneumoperitoneum to suggest perforation. The appendix is visualized and appears normal. Normal abdominal aorta. Normal inferior vena cava. Normal retroperitoneum. Normal urinary bladder. Normal abdominal wall. Normal osseous structures. CT/Abdomen/Pelvis WITH Contrast IMPRESSION: 1. Suspected volume overload with small bilateral pleural effusions and a small amount of ascites. 2. Suspect colitis of the descending colon and the proximal sigmoid colon. No abscess or perforation. Electronically Signed: Gaston Louis MD at 13:31 EDT Tel , Service support ,
--- NOTE | 2021-05-16 09:27 | PN.HOSP_ITS ---
Subjective Subjective Patient was seen and examined. Complains of severe abdominal pain when she moves or coughs. She had a large bowel movement at 4 AM. She has been running low- grade temperature and is slightly tachycardic Objective Data Objective Data Vital Signs: Vital Signs Temp Pulse Resp BP Pulse Ox 99.4 F H 102 H 18 108/75 96 05/16/21 08:35 05/16/21 08:35 05/16/21 08:35 05/16/21 08:35 05/16/21 08:35 Oxygen Delivery Method Room Air Weight: 51.2 kg Body Mass Index (BMI) 22.0 Intake & Output: Intake and Output for Last 24 Hours 05/14/21 05/15/21 05/16/21 23:59 23:59 23:59 Intake Total 1240 / 1240 1253.33 / 1253.33 Balance 1240 / 1240 1253.33 / 1253.33 Lab / Micro Data Result Diagrams: 05/16/21 04:16 05/16/21 04:16 Labs: Laboratory Results - last 24 hr 05/15/21 14:00: WBC 26.3 H, RBC 5.81 H, Hgb 16.6 H, Hct 50.5 H, MCV 86.9, MCH 28.6, MCHC 32.9, RDW Std Deviation 47.7 H, RDW Coeff of Carmelo 15.0 H, Plt Count 408, MPV 9.2, Immature Gran % (Auto) 0.500, Neut % (Auto) 90.2 H, Lymph % (Auto) 2.8 L, Moore % (Auto) 5.6, Eos % (Auto) 0.4, Baso % (Auto) 0.5, Absolute Neuts (auto) 23.8 H, Absolute Lymphs (auto) 0.73 L, Nucleated RBC % 0 05/15/21 14:00: Sodium 132 L, Potassium 4.2, Chloride 99, Carbon Dioxide 24.0, Anion Gap 9, BUN 29 H, Creatinine 1.21 H, Estim Creat Clear Calc 32.41, Est GFR (MDRD) Af Amer 57 L, Est GFR (MDRD) Non-Af 47 L, BUN/Creatinine Ratio 24.0 H, Glucose 136 H, Calcium 9.6, Total Bilirubin 0.60, AST 19, ALT 23, Alkaline Phosphatase 110, Total Protein 7.8, Albumin 3.6, Globulin 4.2, Albumin/Globulin Ratio 0.9, Lipase 76 05/15/21 14:10: Urine Color Kaitlin, Urine Clarity Sl. Cloudy, Urine pH 5.0, Ur Specific [place] 1.020, Urine Protein 100 H, Urine Glucose (UA) Normal, Urine Ketones 15 H, Urine Occult Blood 150 H, Urine Nitrite Negative, Urine Bilirubin 3 H, Urine Urobilinogen 8 H, Ur Leukocyte Esterase 100 H, Urine RBC 0-5 SEEN, Urine WBC 0 SEEN, Ur Squamous Epith Cells 0-5 SEEN, Urine Bacteria 0 SEEN, Urine Mucus 0 SEEN 05/15/21 14:40: Lactic Acid 2.2 H* 05/15/21 22:05: Lactic Acid 1.2 05/16/21 04:16: WBC 22.4 H, RBC 4.96, Hgb 14.1, Hct 42.9, MCV 86.5, MCH 28.4, MCHC 32.9, RDW Std Deviation 49.2 H, RDW Coeff of Carmelo 15.5 H, Plt Count 289, MPV 9.5, Immature Gran % (Auto) 1.200 H, Neut % (Auto) 85.1 H, Lymph % (Auto) 6.1 L, Moore % (Auto) 6.9, Eos % (Auto) 0.4, Baso % (Auto) 0.3, Absolute Neuts (auto) 19.1 H, Absolute Lymphs (auto) 1.36, Nucleated RBC % 0, Differential Comment SCANNED, Diff Path Review January foll 05/16/21 04:16: Sodium 137, Potassium 3.5, Chloride 107, Carbon Dioxide 22.0, Anion Gap 8, BUN 19 H, Creatinine 0.77, Estim Creat Clear Calc 39.21, Est GFR (MDRD) Af Amer 96, Est GFR (MDRD) Non-Af 79, BUN/Creatinine Ratio 24.6 H, Glucose 105, Calcium 7.4 L, Phosphorus 2.4 L, Magnesium 1.9, Total Bilirubin 0.40, AST 16, ALT 18, Alkaline Phosphatase 78, Total Protein 5.7 L, Albumin 2.4 L, Globulin 3.3, Albumin/Globulin Ratio 0.7 L, TSH 1.18 Micro: Microbiology 05/15/21 14:40 Nasal Secretion SARS-CoV-2 Antigen (Rapid) - Final Radiography Diagnostic Testing: Radiology Impression Abdomen/Pelvis CT 05/15/21 13:39 IMPRESSION: 1. Suspect constipation. 2. Sigmoid diverticulosis without diverticulitis. 3. Tiny amount of free fluid which is abnormal in a postmenopausal female but without obvious etiology. Electronically Signed: Gaston Louis MD at 14:54 EDT Tel , Service support , Chest X-Ray 05/15/21 16:30 IMPRESSION: Normal x-ray examination of the chest. Electronically Signed: Gaston Louis MD at 17:10 EDT Tel , Service support , Physical Exam Narrative Physical exam: General: Alert, Oriented x3, Cooperative, appears unwell, lying in bed in the position HEENT: Atraumatic Oral: Dry mucosa Neck: Supple Lungs: Clear to auscultation Cardiovascular: HS I+II, regular, no murmurs Abdomen: Bowel Sounds Present, Soft, tenderness all over especially in the lower abdomen with guarding,? Rebound tenderness Extremities: No edema Const alert, oriented x3, no apparent distress and average body habitus Constitutional Narrative: Older white female lying in bed, appears comfortable at this time, daughter at bedside, nontoxic-appearing, in no distress General Appearance: cooperative HEENT normocephalic, head/scalp atraumatic, hearing grossly normal bilaterally and oropharynx normal Eyes PERRL, EOMs intact bilaterally and conjunctivae normal Neck no lymphadenopathy, supple, no JVD and no carotid bruits Neck Narrative: Trachea is midline, no thyroid enlargement noted Resp normal respiratory effort, no retractions, no use of accessory muscles and clear to auscultation bilaterally Auscultation: Negative for crackles, rales, rhonchi or wheezes Cardio regular rate, regular rhythm, S1 normal heart sound, S2 normal heart sound, no murmurs, no rub, no gallops, no clicks and no JVD GI normal to inspection, nondistended, normoactive bowel sounds, soft to palpation and non-distended; Negative for hepatosplenomegaly Palpation: tender other (Mild tenderness at bilateral lower quadrants) Extremity normal to inspection and no clubbing, cyanosis or edema Skin no rashes or lesions noted, no wounds, skin turgor normal, no jaundice, no petechiae and no mottling Neuro oriented x3, CN's II-XII intact bilaterally, moves all extremities and no focal motor deficits Sensorium / Orientation: awake, alert, oriented to person, oriented to place and oriented to time Speech: speech normal Psych affect normal Assessment & Plan Assessment/Plan (1) Constipation: QUALIFIERS: Constipation type: unspecified constipation type Qualified Code(s): K59.00 - Constipation, unspecified (2) MARZENA (acute kidney injury): (3) Dehydration: (4) Abdominal pain: (5) Leukocytosis: (6) Erythrocytosis: (7) Hyponatremia: (8) Lactic acidosis: (9) Microscopic hematuria: PLAN: 1. Acute abdominal pain, concerning for possible peritonism/peritonitis Patient has significant lower abdominal tenderness on exam She is slightly tachycardic and running low-grade fevers WBC count remains elevated at 22.4, down from 26 CT of the abdomen pelvis reviewed-noted diverticulosis and large stool burden Would give enema x1, continue IV fluids, repeat CT of the abdomen and pelvis with oral contrast Complete your antibiotics as prescribed. Continue to keep yourself hydrated. Follow-up with your primary care doctor within 1 to 2 weeks. Consult 2. Acute kidney injury secondary to dehydration, improved, creatinine is back to baseline We will continue on IV fluid 3. Hyponatremia, secondary to dehydration, resolved 4. Lactic acidosis, resolved 5. Microscopic hematuria, will need to follow-up in the outpatient with referral to urology 6. Rest of chronic medical conditions including hypertension, history of breast cancer, anxiety/depression all remained stable Home med list reviewed
--- NOTE | 2021-05-16 10:08 | NURSING ---
Soap suds enema given per order by student nurses Angelic Young and Medina Acharya with supervision and assistance of Rita Briones RN director school of nursing.
[2021-05-16] MEDS: Magnesium Sulfate 1 GM in 0.9% Normal Saline 100 ML IV (11:07)
--- NOTE | 2021-05-16 12:22 | CON.PCM.SX_ITS ---
Assessment & Plan Assessment/Plan (1) Abdominal pain: (2) Constipation: QUALIFIERS: Constipation type: unspecified constipation type Qualified Code(s): K59.00 - Constipation, unspecified (3) Leukocytosis: PLAN: Repeat CT abdomen pelvis with p.o. and IV contrast is scheduled for 1 PM. Will await CAT scan. Suspicious that there could be some colitis going on as patient does appear to possibly some thickening of the ascending colon on her noncontrast CT. Addendum: Did review CT abdomen pelvis with the radiologist patient does have colitis of the descending and sigmoid colon with some ascites in the pelvis no free air. Will start patient on Zosyn IV okay for sips and chips. We will continue to monitor. Lorenza Mcclain M.D. Pager: [phone] [facility] [address] [place] [address], [facility], [address] [place] [id number] Office: [phone] HPI Consult Data Date of Consult: 05/17/21 HPI Narrative HPI Narrative: SEVEN MOORE, is a 66 F who presents to the ER due to constipation as well as abdominal pain. Patient states she had not had a bowel movement for several days. Is having increasing abdominal pain starting the night before coming in. Patient denies any nausea or vomiting. Patient CT abdo men pelvis did show a large amount of stool in her colon. Patient did have white blood count of 26 on admission, currently 22, patient is currently not on any antibiotics. Patient finished her chemotherapy for breast cancer in December. Repeat CT abdomen pelvis with p.o. and IV contrast was ordered. Patient states she normally has a bowel movement every few days. [facility] Medical History (Updated 05/17/21 @ 08:[address] 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 Breast cancer, left Breast implant removal status Cancer Cancer of left breast Capsular contracture of breast implant Depression Disproportion of reconstructed breast Former smoker History of edema History of pain when walking History of removal of left breast implant History of steroid therapy Hx of echocardiogram Hypertension Left breast mass Neoplasm of skin of forehead Osteoporosis Personal history of skin cancer Rupture of implant of left breast Rupture of implant of right breast Shortness of breath on exertion Wears glasses Home Medications alprazolam 0.5 mg tablet 0.25 mg PO DAILY PRN 09/19/18 [History Last Taken 05/14/21] cholecalciferol (vitamin D3) 5,000 unit PO DAILY 12/16/18 [History Last Taken 05/14/21] fluconazole 200 mg tablet 400 mg PO DAILY 30 Days #60 tab 04/03/21 [Rx Last Taken 05/14/21] buspirone 15 mg tablet 15 mg PO BID 05/07/21 [History Last Taken 05/14/21] amlodipine 5 mg PO DAILY 05/15/21 [History Last Taken 05/14/21] bupropion HCl 300 mg PO DAILY 05/15/21 [History Last Taken 05/14/21] Allergy/AdvReac Type Severity Reaction Status Date / Time No Known Allergies Allergy Verified 05/07/21 09:42 Family History Father Cancer Brother Cancer Sister Cancer Breast cancer Diabetes Mother Hypertension Surgical History H/O section H/O: hysterectomy History of basal cell carcinoma excision History of left breast biopsy (~07/10/20) History of vascular access device Hx of breast implants, bilateral Hx of breast surgery S/P left mastectomy Social History Smoking Status: Former smoker ROS Constitutional Constitutional: Denies chills Eyes Eyes: Denies blurry vision ENT HEENT: Denies dizziness Cardiovascular Cardiovascular: Denies chest pain Respiratory/Chest Respiratory/Chest: Denies shortness of breath at rest Gastrointestinal Gastrointestinal: Reports abdominal pain and constipation; Denies diarrhea, heartburn, hematemesis or melena Genitourinary Genitourinary: Denies burning urination Musculoskeletal Musculoskeletal: Denies joint pain Integumentary Integumentary: Denies rash Neurologic Neurologic: Denies focal weakness Endocrine Endocrinology: Denies palpitations Hematologic/Lymphatic Hematologic/Lymphatic: Denies easy bleeding or easy bruising Physical Exam Const alert, oriented x3 and no apparent distress HEENT normocephalic and head/scalp atraumatic Resp normal respiratory effort Cardio regular rate GI soft to palpation; Negative for non-distended Palpation: tender other (Bilateral lower quadrant, equivocal rebound, voluntary guarding); Negative for guarding Extremity no clubbing, cyanosis or edema Neuro CN's II-XII intact bilaterally Psych mental status grossly normal Lab / Micro Data Result Diagrams: 05/16/21 20:58 05/16/21 04:16 Labs: Laboratory Results - last 24 hr 05/15/21 14:00: WBC 26.3 H, RBC 5.81 H, Hgb 16.6 H, Hct 50.5 H, MCV 86.9, MCH 28.6, MCHC 32.9, RDW Std Deviation 47.7 H, RDW Coeff of Carmelo 15.0 H, Plt Count 408, MPV 9.2, Immature Gran % (Auto) 0.500, Neut % (Auto) 90.2 H, Lymph % (Auto) 2.8 L, [place] % (Auto) 5.6, Eos % (Auto) 0.4, Baso % (Auto) 0.5, Absolute Neuts (auto) 23.8 H, Absolute Lymphs (auto) 0.73 L, Nucleated RBC % 0 05/15/21 14:00: Sodium 132 L, Potassium 4.2, Chloride 99, Carbon Dioxide 24.0, Anion Gap 9, BUN 29 H, Creatinine 1.21 H, Estim Creat Clear Calc 32.41, Est GFR (MDRD) Af Amer 57 L, Est GFR (MDRD) Non-Af 47 L, BUN/Creatinine Ratio 24.0 H, Glucose 136 H, Calcium 9.6, Total Bilirubin 0.60, AST 19, ALT 23, Alkaline Phosphatase 110, Total Protein 7.8, Albumin 3.6, Globulin 4.2, Albumin/Globulin Ratio 0.9, Lipase 76 05/15/21 14:10: Urine Color Kaitlin, Urine Clarity Sl. Cloudy, Urine pH 5.0, Ur Specific [place] 1.020, Urine Protein 100 H, Urine Glucose (UA) Normal, Urine Ketones 15 H, Urine Occult Blood 150 H, Urine Nitrite Negative, Urine Bilirubin 3 H, Urine Urobilinogen 8 H, Ur Leukocyte Esterase 100 H, Urine RBC 0-5 SEEN, Urine WBC 0 SEEN, Ur Squamous Epith Cells 0-5 SEEN, Urine Bacteria 0 SEEN, Urine Mucus 0 SEEN 05/15/21 14:40: Lactic Acid 2.2 H* 05/15/21 22:05: Lactic Acid 1.2 05/16/21 04:16: WBC 22.4 H, RBC 4.96, Hgb 14.1, Hct 42.9, MCV 86.5, MCH 28.4, MCHC 32.9, RDW Std Deviation 49.2 H, RDW Coeff of Carmelo 15.5 H, Plt Count 289, MPV 9.5, Immature Gran % (Auto) 1.200 H, Neut % (Auto) 85.1 H, Lymph % (Auto) 6.1 L, [place] % (Auto) 6.9, Eos % (Auto) 0.4, Baso % (Auto) 0.3, Absolute Neuts (auto) 19.1 H, Absolute Lymphs (auto) 1.36, Nucleated RBC % 0, Differential Comment SCANNED, Diff Path Review January05/16/21 04:16: Sodium 137, Potassium 3.5, Chloride 107, Carbon Dioxide 22.0, Anion Gap 8, BUN 19 H, Creatinine 0.77, Estim Creat Clear Calc 39.21, Est GFR (MDRD) Af Amer 96, Est GFR (MDRD) Non-Af 79, BUN/Creatinine Ratio 24.6 H, Glucose 105, Calcium 7.4 L, Phosphorus 2.4 L, Magnesium 1.9, Total Bilirubin 0.40, AST 16, ALT 18, Alkaline Phosphatase 78, Total Protein 5.7 L, Albumin 2.4 L, Globulin 3.3, Albumin/Globulin Ratio 0.7 L, TSH 1.18 Micro: Microbiology 05/15/21 14:40 Nasal Secretion SARS-CoV-2 Antigen (Rapid) - Final Radiology Impression Abdomen/Pelvis CT 05/15/21 13:39 IMPRESSION: 1. Suspect constipation. 2. Sigmoid diverticulosis without diverticulitis. 3. Tiny amount of free fluid which is abnormal in a postmenopausal female but without obvious etiology. Electronically Signed: Gaston Louis MD at 14:54 EDT Tel , Service support , Chest X-Ray 05/15/21 16:30 IMPRESSION: Normal x-ray examination of the chest. Electronically Signed: Gaston Louis MD at 17:10 EDT Tel , Service support , Charges/Coding Visit Charges Inpatient E&M: 44680 Init Hosp L3
[2021-05-16] MEDS: ALPRAZolam 0.25 MG Tablet PO (14:55)
[2021-05-16] MEDS: Acetaminophen 325 MG Tablet 650 MG PO (18:35)
[2021-05-16] MEDS: 0.9% Normal Saline 1,000 ML 150 ML IV (19:26)
[2021-05-16 21:06] LABS: Hematocrit 38.6 % (37-47); Hemoglobin 12.9 g/dL (12.0-15.0)
[2021-05-16] MEDS: MELATONIN 10 MG TABLET 5 MG PO (23:10)
[2021-05-17] MEDS: 0.9% Normal Saline 1,000 ML 150 ML IV ×4 (01:40→22:07)
[2021-05-17] MEDS: Acetaminophen 325 MG Tablet 650 MG PO ×3 (01:40→19:49)
[2021-05-17 01:45] VITALS: BP 114/73; PULSE 93; RESP 16; TEMP 37.4; O2SAT 94
[2021-05-17 07:15] VITALS: O2SAT 93
[2021-05-17 07:31] VITALS: BP 89/64; PULSE 93; RESP 16; TEMP 36.8; O2SAT 93
--- NOTE | 2021-05-17 08:11 | PCM.PN.SRG ---
Subjective Subjective Patient states abdominal pain is much improved. Patient is tolerating clears Objective Data Objective Data Vital Signs: Vital Signs Temp Pulse Resp BP Pulse Ox 98.2 F 93 16 89/64 L 93 05/17/21 07:31 05/17/21 07:31 05/17/21 07:31 05/17/21 07:31 05/17/21 07:31 Oxygen Delivery Method Room Air Weight: 112 lb 14.027 oz Body Mass Index (BMI) 22.0 Intake & Output: Intake and Output for Last 24 Hours 05/15/21 05/16/21 05/17/21 23:59 23:59 23:59 Intake Total 1240 / 1240 2905.33 / 2905.33 1029.25 / 1029.25 Output Total 1200 / 1200 Balance 1240 / 1240 1705.33 / 1705.33 1029.25 / 1029.25 Lab / Micro Data Result Diagrams: 05/16/21 20:58 05/16/21 04:16 Labs: Laboratory Results - last 24 hr 05/16/21 20:58: Hgb 12.9, Hct 38.6 Micro: Microbiology 05/15/21 14:40 Blood Culture (Wb) - Anticubital Right Blood Culture - Preliminary No growth in 48 hours. 05/15/21 14:50 Blood Culture (Wb) - Right Wrist Blood Culture - Preliminary No growth in 48 hours. 05/15/21 14:40 Nasal Secretion SARS-CoV-2 Antigen (Rapid) - Final Radiography Diagnostic Testing: Radiology Impression Abdomen/Pelvis CT 05/16/21 09:26 IMPRESSION: 1. Suspected volume overload with small bilateral pleural effusions and a small amount of ascites. 2. Suspect colitis of the descending colon and the proximal sigmoid colon. No abscess or perforation. Electronically Signed: Gaston Louis MD at 13:31 EDT Tel , Service support , Physical Exam Narrative Abdomen: Soft, nondistended, minimally tender lower abdomen, no peritoneal signs Assessment & Plan Assessment/Plan (1) Colitis: (2) Abdominal pain: (3) Leukocytosis: PLAN: Patient states abdominal pain is much improved. Patient is on Zosyn IV for colitis. Labs pending. Okay for clears. Lorenza Mcclain M.D. Pager: [phone] [facility] [address] [place] [address], [facility], [address] [place] [address] Office: [phone] Charges/Coding Visit Charges Inpatient E&M: 31939 Subs Hosp L2
--- NOTE | 2021-05-17 08:40 | PCM.PN.HOSP ---
Subjective Subjective Patient was seen and examined. She feels much improved. She has had multiple bowel movements. She denied any fever or chills. She has less abdominal pain. Objective Data Objective Data Vital Signs: Vital Signs Temp Pulse Resp BP Pulse Ox 98.2 F 93 16 89/64 L 93 05/17/21 07:31 05/17/21 07:31 05/17/21 07:31 05/17/21 07:31 05/17/21 07:31 Oxygen Delivery Method Room Air Weight: 51.2 kg Body Mass Index (BMI) 22.0 Intake & Output: Intake and Output for Last 24 Hours 05/15/21 05/16/21 05/17/21 23:59 23:59 23:59 Intake Total 1240 / 1240 2905.33 / 2905.33 1029.25 / 1029.25 Output Total 1200 / 1200 Balance 1240 / 1240 1705.33 / 1705.33 1029.25 / 1029.25 Lab / Micro Data Result Diagrams: 05/17/21 08:13 05/17/21 08:13 Labs: Laboratory Results - last 24 hr 05/16/21 20:58: Hgb 12.9, Hct 38.6 Micro: Microbiology 05/15/21 14:40 Blood Culture (Wb) - Anticubital Right Blood Culture - Preliminary No growth in 48 hours. 05/15/21 14:50 Blood Culture (Wb) - Right Wrist Blood Culture - Preliminary No growth in 48 hours. 05/15/21 14:40 Nasal Secretion SARS-CoV-2 Antigen (Rapid) - Final Radiography Diagnostic Testing: Radiology Impression Abdomen/Pelvis CT 05/16/21 09:26 IMPRESSION: 1. Suspected volume overload with small bilateral pleural effusions and a small amount of ascites. 2. Suspect colitis of the descending colon and the proximal sigmoid colon. No abscess or perforation. Electronically Signed: Gaston Louis MD at 13:31 EDT Tel , Service support , Physical Exam Narrative Physical exam: General: Alert, Oriented x3, Cooperative, appears improved HEENT: Atraumatic Oral: Dry mucosa Neck: Supple Lungs: Clear to auscultation Cardiovascular: HS I+II, regular, no murmurs Abdomen: Bowel Sounds Present, Soft, tenderness all over especially in the lower abdomen with guarding,? Rebound tenderness Extremities: No edema Assessment & Plan Assessment/Plan (1) Constipation: QUALIFIERS: Constipation type: unspecified constipation type Qualified Code(s): K59.00 - Constipation, unspecified (2) MARZENA (acute kidney injury): (3) Dehydration: (4) Abdominal pain: (5) Leukocytosis: (6) Erythrocytosis: (7) Hyponatremia: (8) Lactic acidosis: (9) Microscopic hematuria: PLAN: 1. Acute abdominal pain, secondary to acute descending and proximal sigmoid colitis Noted on CT of the abdomen and pelvis with contrast Started on IV Zosyn yesterday, white cell count improving Blood cultures x2 have been negative for 48 hours Patient has been started on clear liquid diet today, continue on IV antibiotics 2. Relative hypotension, will hold pressure medications, continue to monitor on IV fluids 3. Acute kidney injury secondary to dehydration, improved, creatinine is back to baseline Will continue on IV fluid 4. Hyponatremia, secondary to dehydration, resolved 5. Lactic acidosis, resolved 6. Microscopic hematuria, will need to follow-up in the outpatient with referral to urology 7. Rest of chronic medical conditions including hypertension, history of breast cancer, anxiety/depression all remained stable Home med list reviewed Charges/Coding Visit Charges Inpatient E&M: 61929 Subs Hosp L2
[2021-05-17 08:52] LABS: Absolute Lymphocyte Count 1.27 X10^3/uL (0.83-4.51); Absolute Neutrophil Count 15.2 X10^3/uL (2.0-7.7); Basophil# 0.09 X10^3/uL; Basophil% 0.5 % (0-1); Eosinophil# 0.03 X10^3/uL; Eosinophils% 0.2 % (0-5); Hematocrit 40.2 % (37-47); Hemoglobin 13.3 g/dL (12.0-15.0); Lymphocyte # 1.27 X10^3/ul (0.83-4.51); Lymphocyte % 7.1 % (19-41); Mean Corp Hgb Conc 33.1 g/dL (32-36); Mean Corpuscular Hgb 28.9 pg (27.0-32.0); Mean Corpuscular Volume 87.4 fL (81-99); Mean Platelet Vol. 9.7 fl (6.2-12.0); Monocyte% 6.1 % (0-10); NRBC Flagged by Analyzer 0 % (0-5); Neutrophil # 15.15 X10^3/uL (2.7-7.7); Neutrophil % 84.3 % (47-70); POSITIVE MORPHOLOGY YES; Platelet Count 275 K/mm3 (150-450); RBC Distribution Width CV 15.8 % (11.6-14.6); RBC Distribution Width SD 50.7 fl (35.1-43.9)
[2021-05-17 08:53] LABS: Differential Indicated SCAN CRITERIA MET
[2021-05-17] MEDS: Enoxaparin 40 MG/0.4 ML Syringe SC (09:15)
[2021-05-17] MEDS: busPIRone 15 MG TABLET PO ×2 (09:17→19:50)
[2021-05-17] MEDS: buPROPion (XL) 300 MG TABLET.XL PO (09:17)
[2021-05-17] MEDS: Fluconazole 100 MG Tablet 200 MG PO (09:17)
[2021-05-17 09:19] LABS: Anion Gap 7 (5-15); BUN 13 mg/dL (7-18); BUN/Creat Ratio 23.3 RATIO (10-20); Calcium,Total 6.9 mg/dL (8.5-10.1); Chloride 110 mmol/L (98-107); Creatinine, Serum 0.56 mg/dL (0.55-1.02); EST Glomerular Filtration Rate 115 mL/min (>60); Est Glom Filt Rate - Afr Amer 140 mL/min (>60); Estimated Creatinine Clearance 39.21 ml/min; Glucose 87 mg/dL (74-106); Potassium 3.6 mmol/L (3.5-5.1); Sodium Level 137 mmol/L (136-145)
[2021-05-17] MEDS: Ondansetron 4 MG/2 ML Vial IV (09:25)
[2021-05-17] MEDS: 0.9% Saline Lock 10 ML Syringe IV (09:25)
--- NOTE | 2021-05-17 12:00 | CASEMGMT ---
RN CM Face to Face with patient for initial transition planning/care coordination assessment. RN CM introduced self and role at [facility]. Patient lying in bed, alert and oriented. Patient willing to participate in assessment and is able to answer all questions appropriately. Care providers, pharmacy, and demographics verified. Patient wishes to discharge home, denies need for home health at this time. Patient states she has no further needs or concerns at this time. CM to follow for discharge planning needs that may arise. PCP: [facility] Specialists: [employer]; Aline, oncologist Preferred Pharmacy: [facility] Insurance: [employer] Prescription Benefit: yes Living Will/HPOA: yes, daughter Glory Parra LNOK: daughter Living Arrangements: Patient lives alone in a mobile home with 4 step and railing to enter. Patient states she is independent at home. Transportation: self, daughter DME/HHC: Patient denies DME or previous HHC Disposition Plan: Patient to discharge home with family support and follow-up plans in place. Karina WATKINS, RN, CM
[2021-05-17 12:24] VITALS: BP 123/75; PULSE 94; RESP 16; TEMP 37; O2SAT 95
[2021-05-17] MEDS: Mag Hydrox/Al Hydrox/Simeth 30 ML UDC PO ×2 (12:30→19:50)
[2021-05-17 16:01] VITALS: BP 110/73; PULSE 90; PULSE 93; RESP 16; TEMP 36.6; O2SAT 94
[2021-05-17] MEDS: MELATONIN 10 MG TABLET 5 MG PO (19:50)
[2021-05-17 20:06] VITALS: BP 101/79; PULSE 92; RESP 16; TEMP 36.8; O2SAT 95
[2021-05-18] MEDS: ALPRAZolam 0.25 MG Tablet PO (00:22)
[2021-05-18 03:00] VITALS: BP 118/78; PULSE 88; RESP 18; TEMP 36.8; O2SAT 95
[2021-05-18] MEDS: 0.9% Normal Saline 1,000 ML 150 ML IV (05:11)
[2021-05-18 06:03] LABS: Absolute Neutrophil Count 11.3 X10^3/uL (2.0-7.7); Basophil# 0.05 X10^3/uL; Basophil% 0.4 % (0-1); Eosinophil# 0.07 X10^3/uL; Eosinophils% 0.5 % (0-5); Hematocrit 39.6 % (37-47); Hemoglobin 13.1 g/dL (12.0-15.0); Lymphocyte % 7.6 % (19-41); Mean Corp Hgb Conc 33.1 g/dL (32-36); Mean Corpuscular Hgb 28.7 pg (27.0-32.0); Mean Corpuscular Volume 86.7 fL (81-99); Mean Platelet Vol. 9.5 fl (6.2-12.0); Monocyte# 0.64 X10^3/uL; Monocyte% 4.9 % (0-10); NRBC Flagged by Analyzer 0 % (0-5); Neutrophil # 11.27 X10^3/uL (2.7-7.7); Neutrophil % 86.1 % (47-70); Platelet Count 281 K/mm3 (150-450); RBC Distribution Width CV 15.8 % (11.6-14.6); RBC Distribution Width SD 50.3 fl (35.1-43.9); Red Blood Count 4.57 M/mm3 (4.2-5.4); White Blood Count 13.1 K/mm3 (4.4-11.0)
[2021-05-18 06:37] LABS: ALB/GLOB Ratio 0.5 RATIO (0.9-2.4); AST(SGOT) 12 U/L (15-37); Alanine Aminotransfer ALT/SGPT 11 U/L (13-56); Albumin, Serum 1.7 g/dL (3.2-5.0); Alkaline Phosphatase 77 U/L (45-117); Anion Gap 7 (5-15); BUN 6 mg/dL (7-18); BUN/Creat Ratio 15.9 RATIO (10-20); Calcium,Total 6.8 mg/dL (8.5-10.1); Chloride 110 mmol/L (98-107); Creatinine, Serum 0.38 mg/dL (0.55-1.02); EST Glomerular Filtration Rate 181 mL/min (>60); Est Glom Filt Rate - Afr Amer 219 mL/min (>60); Estimated Creatinine Clearance 39.21 ml/min; Globulin 3.2 g/dL (2.2-4.2); Glucose 93 mg/dL (74-106); Protein, Total 4.9 g/dL (6.4-8.2); Sodium Level 139 mmol/L (136-145)
[2021-05-18 08:40] VITALS: BP 110/68; PULSE 91; RESP 16; TEMP 36.8; O2SAT 96
--- NOTE | 2021-05-18 08:54 | PN.SURG_ITS ---
Subjective Subjective Patient tolerating clears having some diarrhea likely from her p.o. Contrast from CAT scan. Patient denies abdominal pain Objective Data Objective Data Vital Signs: Vital Signs Temp Pulse Resp BP Pulse Ox 98.2 F 91 16 110/68 96 05/18/21 08:40 05/18/21 08:40 05/18/21 08:40 05/18/21 08:40 05/18/21 08:40 Oxygen Delivery Method Room Air Weight: 112 lb 14.027 oz Body Mass Index (BMI) 22.0 Intake & Output: Intake and Output for Last 24 Hours 05/16/21 05/17/21 05/18/21 23:59 23:59 23:59 Intake Total 2905.33 / 2905.33 4056.75 / 4306.75 1300 / 1300 Output Total 1200 / 1200 Balance 1705.33 / 1705.33 4056.75 / 4306.75 1300 / 1300 Lab / Micro Data Result Diagrams: 05/18/21 05:03 05/18/21 05:03 Labs: Laboratory Results - last 24 hr 05/17/21 08:13: Sodium 137, Potassium 3.6, Chloride 110 H, Carbon Dioxide 20.0 L , Anion Gap 7, BUN 13, Creatinine 0.56, Estim Creat Clear Calc 39.21, Est GFR (MDRD) Af Amer 140, Est GFR (MDRD) Non-Af 115, BUN/Creatinine Ratio 23.3 H, Glucose 87, Calcium 6.9 L 05/18/21 05:03: WBC 13.1 H, RBC 4.57, Hgb 13.1, Hct 39.6, MCV 86.7, MCH 28.7, MCHC 33.1, RDW Std Deviation 50.3 H, RDW Coeff of Carmelo 15.8 H, Plt Count 281, MPV 9.5, Immature Gran % (Auto) 0.500, Neut % (Auto) 86.1 H, Lymph % (Auto) 7.6 L, [place] % (Auto) 4.9, Eos % (Auto) 0.5, Baso % (Auto) 0.4, Absolute Neuts (auto) 11.3 H, Absolute Lymphs (auto) 1.00, Nucleated RBC % 0 05/18/21 05:03: Sodium 139, Potassium 3.0 L, Chloride 110 H, Carbon Dioxide 22.0, Anion Gap 7, BUN 6 L, Creatinine 0.38 L, Estim Creat Clear Calc 39.21, Est GFR (MDRD) Af Amer 219, Est GFR (MDRD) Non-Af 181, BUN/Creatinine Ratio 15.9, Glucose 93, Calcium 6.8 L, Total Bilirubin 0.30, AST 12 L, ALT 11 L, Alkaline Phosphatase 77, Total Protein 4.9 L, Albumin 1.7 L, Globulin 3.2, Albumin/Globulin Ratio 0.5 L Micro: Microbiology 05/15/21 14:10 Urine, Clean Catch Urine Culture - Final Mixed Gram Positive Organisms 05/15/21 14:40 Blood Culture (Wb) - Anticubital Right Blood Culture - Preliminary No growth in 48 hours. 05/15/21 14:50 Blood Culture (Wb) - Right Wrist Blood Culture - Preliminary No growth in 48 hours. 05/15/21 14:40 Nasal Secretion SARS-CoV-2 Antigen (Rapid) - Final Physical Exam Narrative Abdomen: Soft, nondistended, non-tender lower abdomen, no peritoneal signs Assessment & Plan Assessment/Plan (1) Colitis: (2) Abdominal pain: (3) Leukocytosis: PLAN: Patient is tolerating clears. Will advance to transitional diet. Patient tolerates transitional diet okay to be DC'd home. While patient follow- up in 1 to 2 weeks. Patient was agreeable with plan. Patient currently on IV Zosyn will switch to Augmentin for total of about 10 days. Prescription sent to pharmacy. Lorenza Mcclain M.D. Pager: [phone] [facility] [address] [place] [address], [facility], [address] [place] [id number] Office: [phone] Charges/Coding Visit Charges Inpatient E&M: 59494 Subs Hosp L2
--- NOTE | 2021-05-18 09:14 | PCM.DC ---
Discharge Instructions Diet Discharge Diet: No restrictions Activity Discharge Activity: Return to Normal Activity Weight Bearing Status: Weight bearing as tolerated Follow Up Care Test Results: Test results from this visit will be discussed in further detail at your follow-up appointment, if applicable. Discharge Plan Admission Admit Date/Time: 05/16/21 15:56 Primary Reason for Your Visit: Acute colitis Attending Provider: Loreto Yo Primary Care Provider: Rob Duque Consulting Providers: Lorenza Mcclain Discharge Orders/Prescriptions Prescriptions: New amoxicillin-pot clavulanate [Augmentin] 875-125 mg tablet 1 tab PO BID Qty: 16 RF: 0 Continued alprazolam [Xanax] 0.5 mg tablet 0.25 mg PO DAILY PRN (Reason: Anxiety) RF: 0 buspirone 15 mg tablet 15 mg PO BID RF: 0 cholecalciferol (vitamin D3) 5,000 UNIT capsule 5,000 unit PO DAILY RF: 0 bupropion HCl 300 mg tablet extended release 24 hr 300 mg PO DAILY RF: 0 fluconazole [Diflucan] 200 mg tablet 400 mg PO DAILY 30 Days Qty: 60 RF: 1 Discontinued amlodipine 5 mg tablet 5 mg PO DAILY RF: 0 Referrals / Follow Up: Rob Duque MD [Primary Care Provider] - Within 2 Weeks Lorenza Mcclain MD [STAFF PHYSICIAN] - Within 2 Weeks Disposition Disposition (needs filled in before D/C Order can be placed): Home, Self Care
[2021-05-18] MEDS: Potassium Chloride Oral Tablet 20 MEQ 60 MEQ PO (09:24)
[2021-05-18] MEDS: Fluconazole 100 MG Tablet 200 MG PO (09:25)
[2021-05-18] MEDS: busPIRone 15 MG TABLET PO (09:25)
[2021-05-18] MEDS: buPROPion (XL) 300 MG TABLET.XL PO (09:26)
--- NOTE | 2021-05-18 11:58 | DS.PCM_ITS ---
Providers Date of Admission: 05/16/21 Date of Discharge: 05/18/21 Primary Care Physician: Dr. Rob Duque MD Consultations 05/16/21 10:03 Consult: General Surgery Routine Consulting Provider: Lorenza Mcclain Reason for Consult: Abd pain EMERGENT Consult: No MD Notified: Yes Date Notified: 05/16/21 Time Notified: 10:03 Method of Notification: Verbal Reason For Visit: ABDOMINAL PAIN Diagnosis Discharge Diagnosis (1) Colitis: Status: Acute Code(s): K52.9 - Noninfective gastroenteritis and colitis, unspecified (2) Abdominal pain: Status: Acute Code(s): R10.9 - Unspecified abdominal pain (3) Leukocytosis: Status: Acute Code(s): D72.829 - Elevated white blood cell count, unspecified (4) Sepsis: Status: Acute Code(s): A41.9 - Sepsis, unspecified organism Medications at Discharge Home Medications alprazolam 0.5 mg tablet 0.25 mg PO DAILY PRN 09/19/18 cholecalciferol (vitamin D3) 5,000 unit PO DAILY 12/16/18 fluconazole 200 mg tablet 400 mg PO DAILY 30 Days #60 tab 04/03/21 buspirone 15 mg tablet 15 mg PO BID 05/07/21 bupropion HCl 300 mg PO DAILY 05/15/21 amoxicillin-pot clavulanate [Augmentin] 1 tab PO BID #16 tab 05/18/21 Hospital Course Operations None Procedures None Summary of Care Provided Minutes Spent on Discharge: 45 Hospital Course: 66-year-old female who presented with abdominal pain. Patient had issues with constipation. She had increasing abdominal pain and had not moved her bowels in 3 days. She typically moves her bowels every 4 days. She had associated nausea. Her work-up in the ED show stable vitals. Her lactic acid was 2.2. CT of abdomen pelvis show sigmoid diverticulosis without diverticulitis and a large amount of stool throughout the colon. Patient initially had presentation suspicious of Covid with tachycardia, leukocytosis, lactic acid more than 2 but there was no source of infection. She was admitted to the [facility] floor, monitored on IV fluids. Patient was seen to have persistent abdominal pain. Repeat CT of the abdomen oral contrast showed colitis of the descending colon as well as proximal sigmoid. General surgery was consulted. Patient was started on IV Zosyn. Patient continued to improve and was able to tolerate a transitional diet. She was discharged on Augmentin in the transitional diet. Patient technically did have sepsis secondary to acute colitis, this was present on admission Physical Exam Narrative Physical exam: General: Alert, Oriented x3, Cooperative, appears improved HEENT: Atraumatic Oral: Dry mucosa Neck: Supple Lungs: Clear to auscultation Cardiovascular: HS I+II, regular, no murmurs Abdomen: Bowel Sounds Present, Soft, improved tenderness over the lower abdomen Extremities: No edema Weight / BMI Weight Weight: 51.2 kg Body Mass Index (BMI) 22.0 ABG / Lab / Microbiology Data Result Diagrams: 05/18/21 05:03 05/18/21 05:03 Laboratory: Laboratory Results - last 24 hr 05/18/21 05:03: WBC 13.1 H, RBC 4.57, Hgb 13.1, Hct 39.6, MCV 86.7, MCH 28.7, MCHC 33.1, RDW Std Deviation 50.3 H, RDW Coeff of Carmelo 15.8 H, Plt Count 281, MPV 9.5, Immature Gran % (Auto) 0.500, Neut % (Auto) 86.1 H, Lymph % (Auto) 7.6 L, Weston % (Auto) 4.9, Eos % (Auto) 0.5, Baso % (Auto) 0.4, Absolute Neuts (auto) 11.3 H, Absolute Lymphs (auto) 1.00, Nucleated RBC % 0 05/18/21 05:03: Sodium 139, Potassium 3.0 L, Chloride 110 H, Carbon Dioxide 22.0, Anion Gap 7, BUN 6 L, Creatinine 0.38 L, Estim Creat Clear Calc 39.21, Est GFR (MDRD) Af Amer 219, Est GFR (MDRD) Non-Af 181, BUN/Creatinine Ratio 15.9, Glucose 93, Calcium 6.8 L, Total Bilirubin 0.30, AST 12 L, ALT 11 L, Alkaline Phosphatase 77, Total Protein 4.9 L, Albumin 1.7 L, Globulin 3.2, Albumin/Globulin Ratio 0.5 L Microbiology: Microbiology 05/15/21 14:10 Urine, Clean Catch Urine Culture - Final Mixed Gram Positive Organisms 05/15/21 14:40 Blood Culture (Wb) - Anticubital Right Blood Culture - Preliminary No growth in 48 hours. 05/15/21 14:50 Blood Culture (Wb) - Right Wrist Blood Culture - Preliminary No growth in 48 hours. 05/15/21 14:40 Nasal Secretion SARS-CoV-2 Antigen (Rapid) - Final D/C Instructions Discharge Diet: No restrictions Weight Bearing Status: Weight bearing as tolerated Meaningful Use Info Meaningful Use Diagnoses (Choose all that apply): None applicable Discharge Plan Admission Admit Date/Time: 05/16/21 15:56 Primary Reason for Your Visit: Acute colitis Attending Provider: Loreto Yo Primary Care Provider: Rob Duque Consulting Providers: Lorenza Mcclain Discharge Orders/Prescriptions Prescriptions: New amoxicillin-pot clavulanate [Augmentin] 875-125 mg tablet 1 tab PO BID Qty: 16 RF: 0 Continued alprazolam [Xanax] 0.5 mg tablet 0.25 mg PO DAILY PRN (Reason: Anxiety) RF: 0 buspirone 15 mg tablet 15 mg PO BID RF: 0 cholecalciferol (vitamin D3) 5,000 UNIT capsule 5,000 unit PO DAILY RF: 0 bupropion HCl 300 mg tablet extended release 24 hr 300 mg PO DAILY RF: 0 fluconazole [Diflucan] 200 mg tablet 400 mg PO DAILY 30 Days Qty: 60 RF: 1 Discontinued amlodipine 5 mg tablet 5 mg PO DAILY RF: 0 Referrals / Follow Up: Rob Duque MD [Primary Care Provider] - Within 2 Weeks Lorenza Mcclain MD [STAFF PHYSICIAN] - Within 2 Weeks Disposition Disposition (needs filled in before D/C Order can be placed): Home, Self Care Charges/Coding Visit Charges Inpatient E&M: 59171 Disch Hosp
[2021-05-20 10:03] LABS: Pathologist Review Reviewed
--- NOTE | 2021-05-20 13:57 | CASEMGMT ---
MIGUEL PINZON Discharge Follow-up Phone Call: SERENA: Kiah Strata:3 Call Date: 05/20/21 Discharge Date: 05/18/21 Time of Call: [id number] Admitting Diagnosis: colitis This MIGUEL PINZON phoned pt regarding discharge follow-up. Pt states she is doing great since being discharged and was able to attend a dentist appointment today. Pt reports some residual diarrhea but states it is improving and denies any further abdominal pain. Pt reports taking her antibiotic twice daily and has made her follow-up appointment with Dr. Duque. Pt states she has not yet made an appointment with Dr. Mcclain. Pt denies any questions regarding her discharge instructions or any other concerns at this time. Galina Vasquez RN CM
== END 2021-05-18 10:42 | disposition home or self-care (01) | DRG 392 ==
LOC: ED 13:53 → MS3 17:20
PROVIDERS: Nurse Practitioner Family; Surgery; Admitting Provider Internal Medicine; Emergency Provider Emergency Medicine; PCP Family Medicine; Referring Provider Internal Medicine; Visit Provider Internal Medicine
DX: K52.9 Noninfective gastroenteritis and colitis, unspecified (principal); N17.9 Acute kidney failure, unspecified; E87.2 Acidosis; E87.1 Hypo-osmolality and hyponatremia; Z87.891 Personal history of nicotine dependence; E86.0 Dehydration; R31.29 Other microscopic hematuria; I10 Essential (primary) hypertension; F32.9 Major depressive disorder, single episode, unspecified; F41.9 Anxiety disorder, unspecified; Z85.3 Personal history of malignant neoplasm of breast; Z79.899 Other long term (current) drug therapy; K59.00 Constipation, unspecified; I95.9 Hypotension, unspecified
CPT/HCPCS: 36415; 71045; 74176; 74177; 80048; 80053; 81001; 83605; 83690; 83735; 84100; 84443; 85014; 85018; 85025; 87040; 87086; 87088; 87426; 99251; 99284; J7030; J7050; Q9967; A4216; G0463; J2405

== ENCOUNTER 2021-11-05 09:44 | Outpatient (CLI) | payer MEDICARE, MEDICAID, SELFPAY ==
[2021-11-05 12:21] LABS: Absolute Lymphocyte Count 2.09 X10^3/uL (0.83-4.51); Absolute Neutrophil Count 2.9 X10^3/uL (2.0-7.7); Basophil# 0.06 X10^3/uL; Basophil% 1.1 % (0-1); Eosinophil# 0.11 X10^3/uL; Hematocrit 51.5 % (37-47); Hemoglobin 16.7 g/dL (12.0-15.0); Lymphocyte # 2.09 X10^3/ul (0.83-4.51); Lymphocyte % 37.2 % (19-41); Mean Corp Hgb Conc 32.4 g/dL (32-36); Mean Corpuscular Volume 92.5 fL (81-99); Mean Platelet Vol. 10.2 fl (6.2-12.0); Monocyte# 0.43 X10^3/uL; Monocyte% 7.7 % (0-10); NRBC Flagged by Analyzer 0 % (0-5); Neutrophil # 2.91 X10^3/uL (2.7-7.7); Neutrophil % 51.6 % (47-70); Platelet Count 339 K/mm3 (150-450); RBC Distribution Width CV 13.8 % (11.6-14.6); RBC Distribution Width SD 47.1 fl (35.1-43.9); Red Blood Count 5.57 M/mm3 (4.2-5.4); White Blood Count 5.6 K/mm3 (4.4-11.0)
[2021-11-05 12:45] LABS: AST(SGOT) 10 U/L (15-37); Alanine Aminotransfer ALT/SGPT 18 U/L (13-56); Albumin, Serum 3.7 g/dL (3.2-5.0); Alkaline Phosphatase 94 U/L (45-117); Anion Gap 6 (5-15); BUN 14 mg/dL (7-18); BUN/Creat Ratio 14.9 RATIO (10-20); Calcium,Total 9.4 mg/dL (8.5-10.1); Chloride 106 mmol/L (98-107); Creatinine, Serum 0.94 mg/dL (0.55-1.02); EST Glomerular Filtration Rate 63 mL/min (>60); Est Glom Filt Rate - Afr Amer 76 mL/min (>60); Globulin 3.7 g/dL (2.2-4.2); Glucose 70 mg/dL (74-106); Potassium 4.1 mmol/L (3.5-5.1); Protein, Total 7.4 g/dL (6.4-8.2); Sodium Level 139 mmol/L (136-145)
== END 2021-11-05 23:59 | disposition home or self-care (01) ==
LOC: MFPLAB 09:45
PROVIDERS: PCP Family Medicine; Referring Provider Family Medicine; Visit Provider Family Medicine
DX: R93.41 Abnormal radiologic findings on diagnostic imaging of renal pelvis, ureter, or bladder (principal)
CPT/HCPCS: 36415; 80053; 85025

== ENCOUNTER 2021-11-26 08:10 | Outpatient (CLI) | payer MEDICARE, MEDICAID, SELFPAY ==
--- NOTE | 2021-11-26 08:15 | CT_ITS ---
INDICATION: abnormal bladder urography EXAMINATION: CT ABDOMEN AND PELVIS WITH AND WITHOUT CONTRAST - CT Abdomen And Pelvis WO/W Contrast Injection TECHNIQUE: Helically acquired images were obtained of the abdomen and pelvis both before and after IV contrast. A radiation dose optimization technique was used for this scan. IV Contrast dosage and agent: 100 mL of ISOVUE-300 Oral contrast: None. COMPARISON: CT abdomen and pelvis from 05/16/2021. FINDINGS: Noncontrast evaluation demonstrates no intramural hematoma in the aorta. No nephrolithiasis. Postcontrast evaluation: Lower thorax: Dependent atelectasis. Otherwise, the visualized lung bases are clear. Liver: Normal morphology. No masses. No acute findings. Gallbladder: Normal appearance. No bile duct dilation. Spleen: Unremarkable. Pancreas: No cystic or solid masses. No hydronephrosis. Adrenal glands: Unremarkable. Right kidney: Stable right midpole parapelvic cyst. No solid masses. No hydronephrosis. Left kidney: Redemonstration of left pelvic kidney. Stable appearance with no cystic or solid masses. No hydronephrosis. Bladder: Normal appearance. Normal opacification of the bladder and ureters on delayed phase sequences. GI tract: Colonic diverticulosis with no CT findings of diverticulitis. The appendix is normal. No significant wall thickening or bowel dilation. Peritoneum/mesentery/retroperitoneum: No free air or free fluid. No masses or lymphadenopathy. Pelvis: Hysterectomy. No free air free fluid. No masses or lymphadenopathy. Vasculature: Scattered arterial atherosclerotic disease. No abdominal aortic or iliac aneurysm. Bones/soft tissues: No acute fracture or subluxation. No destructive osseous lesions. Soft tissues are unremarkable. CT/CT Abd/Pelvis W/WO Contrast IMPRESSION: Stable and normal appearance of the kidneys and bladder. Overall, unremarkable with and without contrast enhanced study. Electronically Signed: Armen Helms, at 13:32 EDT ,
== END 2021-11-26 23:59 | disposition home or self-care (01) ==
LOC: CT 08:13
PROVIDERS: PCP Family Medicine; Referring Provider Family Medicine; Visit Provider Family Medicine
DX: R93.41 Abnormal radiologic findings on diagnostic imaging of renal pelvis, ureter, or bladder (principal)
CPT/HCPCS: 74178; Q9967

== ENCOUNTER 2022-05-12 10:02 | Outpatient (CLI) | payer MEDICARE, MEDICAID, SELFPAY ==
[2022-05-12 10:06] LABS: Mucous, Urine 0 SEEN /hpf (<or=2+)
[2022-05-12 12:29] LABS: Color, Urine Yellow (Yellow); Glucose, Dipstick Normal (Normal); Ketone-Dipstick 5 mg/dl (Negative); Leukocyte Esterase-Dipstick 25 /ul (Negative); Nitrite-Dipstick Negative (Negative); Occult Blood-Urine 250 /ul (Negative); Protein-Dipstick Negative (Negative); Specific Gravity, Urine 1.015 (1.002-1.030); Urine Bilirubin Dipstick Negative (Negative); Urine Clarity Clear (Clear); Urine Urobilinogen 1 mg/dl (Normal)
[2022-05-12 12:32] LABS: Red Blood Cells-Urine 0-5 SEEN /hpf (0-5); Squamous Epithelial Cells - UA 0-5 SEEN /hpf (5-10); White Blood Cells 5-10 SEEN /hpf (0-5)
[2022-05-12 12:33] LABS: Bacteria 2+ /hpf (None Seen)
== END 2022-05-12 23:59 | disposition home or self-care (01) ==
LOC: LABSPEC 10:05
PROVIDERS: PCP Family Medicine; Visit Provider Family Medicine
DX: R82.998 Other abnormal findings in urine (principal); R31.9 Hematuria, unspecified
CPT/HCPCS: 81001; 87086; 87088

== ENCOUNTER → 2023-05-12 | Outpatient (CLI) | payer MEDICARE, MEDICAID, SELFPAY ==
[2023-05-12 15:43] LABS: AST(SGOT) 18 U/L (15-37); Alanine Aminotransfer ALT/SGPT 28 U/L (13-56); Albumin, Serum 3.6 g/dL (3.2-5.0); Alkaline Phosphatase 73 U/L (45-117); Bilirubin, Direct 0.12 mg/dL (0.00-0.30); Cholesterol 149 mg/dL (200); Globulin 3.8 g/dL (2.2-4.2); High Density Lipoprotein 70 mg/dL; Protein, Total 7.4 g/dL (6.4-8.2); Triglycerides 91 mg/dL; Very Low Density Lipoprotein 18 mg/dL (5-40)
== END | disposition home or self-care (01) ==
PROVIDERS: PCP Family Medicine; Referring Provider Family Medicine; Visit Provider Family Medicine
DX: E78.5 Hyperlipidemia, unspecified (principal)
CPT/HCPCS: 36415; 80061; 80076

== ENCOUNTER → 2024-04-06 | Outpatient (CLI) | payer MEDICARE, MEDICAID, SELFPAY ==
[2024-04-06 11:14] LABS: Ionized Calcium Order ORDER TUBE
[2024-04-06 12:20] LABS: Hemoglobin 15.1 g/dL (12.0-15.0); Mean Corp Hgb Conc 32.1 g/dL (32-36); Mean Corpuscular Hgb 29.5 pg (27.0-32.0); Mean Platelet Vol. 10.4 fl (6.2-12.0); Platelet Count 293 K/mm3 (150-450); RBC Distribution Width CV 13.7 % (11.6-14.6); RBC Distribution Width SD 46.5 fl (35.1-43.9); Red Blood Count 5.11 M/mm3 (4.2-5.4)
[2024-04-06 12:45] LABS: PTHIN 77.1 pg/mL (18.4-80.1)
[2024-04-06 12:50] LABS: Vitamin D,25 Hydroxy 44.4 ng/mL
[2024-04-06 12:56] LABS: Anion Gap 5 (5-15); BUN 12 mg/dL (7-18); BUN/Creat Ratio 11.3 RATIO (10-20); Calcium,Total 9.8 mg/dL (8.5-10.1); Chloride 108 mmol/L (98-107); Cholesterol 165 mg/dL (200); Creatinine, Serum 1.06 mg/dL (0.55-1.02); EST Glomerular Filtration Rate 54 mL/min (>60); Est Glom Filt Rate - Afr Amer 66 mL/min (>60); Glucose 88 mg/dL (74-106); High Density Lipoprotein 73 mg/dL; Potassium 3.7 mmol/L (3.5-5.1); Sodium Level 139 mmol/L (136-145); Thyroid Stim Hormone (TSH) 2.17 uIU/mL (0.358-3.74); Triglycerides 134 mg/dL; Very Low Density Lipoprotein 27 mg/dL (5-40)
[2024-04-06 15:51] LABS: Ionized Calcium 5.34 mg/dL (4.36-5.20)
== END | disposition home or self-care (01) ==
PROVIDERS: PCP Family Medicine; Referring Provider Family Medicine; Visit Provider Family Medicine
DX: M81.0 Age-related osteoporosis without current pathological fracture (principal); D58.2 Other hemoglobinopathies; E78.5 Hyperlipidemia, unspecified
CPT/HCPCS: 36415; 80048; 80061; 82306; 82330; 83970; 84443; 85027

== ENCOUNTER 2024-04-26 06:04 | Day surgery (SDC) | payer MEDICARE, MEDICAID, SELFPAY ==
[2024-04-26] VITALS (9 sets, daily range): BP systolic 82–127; BP diastolic 55–88; PULSE 67–78; RESP 16; TEMP 36.1–36.2; O2SAT 94–96; BMI 24.1
--- NOTE | 2024-04-26 | COLBX_PTH ---
PATIENT: SEVEN MOORE LOC: EN U#:[id number] AGE/SX: 69/F ROOM: RE04/26/[address]: Dr. Lorenza Mcclain MD : 1955 BED: DIS: 04/26/2024 SPEC #: [id number] RECD: 04/26/24 10:25 STATUS: YVETTE ANNEMARIE #: [id number] NISHI: 04/26/24 00:[address]: Lorenza Mcclain DEPT: SURGICAL PATHOLOGY RECD BY: Oc Woods ENTERED: 04/26/24 11:53 SP TYPE: COLON BX OTHR DR: Dr. Eder Duque MD Tissues: Rectum, NOS Procedures: Surgery Specimen Level IV HEADER OPERATION: Colonoscopy, polypectomy PRE-OP DIAGNOSIS: Positive fecal immunochemical test TISSUE SUBMITTED: Rectal polyp MICROSCOPIC DIAGNOSIS Rectal polyp, polypectomy: Tubular adenoma. LALO/ 04/27/2024 MICROSCOPIC DESCRIPTION Slides are reviewed. GROSS DESCRIPTION Received in fixative is one container labeled with the patient's name and designated Rectal polyp. The specimen consists of a pink-red polyp measuring 0.9 x 0.5 x 0.5 cm. The presumed base is inked. The polyp is bisected and submitted entirely in one cassette. 04/26/2024 TC:1 CPT:43179
[2024-04-26] MEDS: Lactated Ringers 1,000 ML 15 ML IV (06:25)
--- NOTE | 2024-04-26 06:40 | PCM.PRE.AN2 ---
ASA Classification* ASA Classification ASA Classification: 2 Assessment & Plan Anesthesia* Anesthesia Assessment Anesthesia Assessment: Discussed sedation and/or anesthesia options, risks, benefits, and alternatives with patient/parents/legal guardian/POA. Questions invited. The patient/parents/legal guardian/POA seems to understand and agrees to proceed with anesthesia plan. Reviewed the physical assessment, medical history, allergy history and patient home medications list prior to surgery/procedure/anesthetic and documented any changes. Performed airway and anesthesia risk assessments. Anesthesia Type Anesthesia Type: MAC Anesthesia Focused Assessment* Temperature: 97.1 F Pulse Rate: 78 Blood Pressure: 127/88 Respiratory Rate: 16 Pulse Ox: 95 Airway Assessment Mouth opens: >3 cm Mallampati Score: II Focused Labs Anesthesia Preop lab: CBC WBC 7.0 K/mm3 (4.4-11.0) 04/06/24 10:13 RBC 5.11 M/mm3 (4.2-5.4) 04/06/24 10:13 Hgb 15.1 g/dL (12.0-15.0) H 04/06/24 10:13 Hct 47.0 % (37-47) 04/06/24 10:13 Plt Count 293 K/mm3 (150-450) 04/06/24 10:13 CHEMISTRY Potassium 3.7 mmol/L (3.5-5.1) 04/06/24 10:13 Sodium 139 mmol/L (136-145) 04/06/24 10:13 Magnesium 1.9 mg/dL (1.6-2.6) 05/16/21 04:16 Phosphorus 2.4 mg/dL (2.5-4.9) L 05/16/21 04:16 BUN 12 mg/dL (7-18) 04/06/24 10:13 Creatinine 1.06 mg/dL (0.55-1.02) H 04/06/24 10:13 Glucose 88 mg/dL (74-106) 04/06/24 10:13 POC Glucose 84 mg/dL (70-110) 03/04/21 09:06 TSH 2.17 uIU/mL (0.358-3.74) 04/06/24 10:13 COAG Pre-Assessment Diagnosis/Proposed Procedure Planned Operative Procedure(s): CSCOPE Anesthesia History Anesthesia History - administrative services coordinator: Anesthesia History - administrative services coordinator Hx Hospitalization No 04/20/24 14:24 Any Problems With Anesthesia No 04/20/24 14:24 Cholinesterase deficiency No 04/20/24 14:24 You/Your Family Experience No 04/20/24 14:24 fever (hyperthermia) with Relationship Recent Exposure to Contagious No 04/26/24 06:23 Disease Does patient have nerve No 04/20/24 14:24 stimulator Patient instructed to have device shut off --Does patient have Pacemaker No 04/26/24 06:23 or ICD? When Was Last Pacemaker Check QUESTION #4 FULL TEXT: You/Your Family Experience fever (hyperthermia) with Anesthesia Last Oral Intake Last Oral intake: Last Oral Intake NPO since 21:00 04/26/24 06:23 Meds taken in AM with sips of Yes 04/26/24 06:23 water? Meds patient instructed to take am of surgery PONV PONV - administrative services coordinator: PONV - administrative services coordinator Female Yes 04/20/24 14:24 HX of Motion Sickness No 04/20/24 14:24 HX of N/V After Surgery No 04/20/24 14:24 Non-Smoker Yes 04/20/24 14:24 Duration of Surgery greater No 04/20/24 14:24 than 60 minutes Number of Risk Factors 2 04/20/24 14:24 PONV Score Moderate Risk 04/20/24 14:24 Height & Weight Height & Weight: Anesthesia: Height & Weight Height 5 ft 1 in 04/26/24 06:23 Weight: 58 kg 04/26/24 06:23 Body Mass Index (BMI) 24.1 04/26/24 06:23 Respiratory Assessment Respiratory Assessment - administrative services coordinator: Respiratory Tract Infection Hx - administrative services coordinator Hx Respiratory Tract Infection No 04/20/24 14:24 STOP Sleep Apnea STOP Sleep Apnea - administrative services coordinator: STOP Sleep Apnea - administrative services coordinator Hx Hypertension Yes: NO MEDS SINCE 202004/20/24 14:24 Hx Sleep Apnea No 04/20/24 14:24 CPAP No 05/15/21 17:51 BIPAP Do you snore loudly (louder Yes 04/20/24 14:24 than talking or can be heard Do you often feel tired/ No 04/20/24 14:24 fatigued/ sleepy during daytime? Has anyone observed you stop No 04/20/24 14:24 breathing during sleep? STOP Results Positive 04/20/24 14:24 QUESTION #5 FULL TEXT : Do you snore loudly (louder than talking or can be heard through closed doors)? 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 Specify any problems Hx of Preganancy in last 3 No 04/20/24 14:24 Months Nurse Filling Out Transfusion DSCHRIBER 04/20/24 14:24 & Questions: Date: 04/20/24 04/20/24 14:24 Time: 14:26 04/20/24 14:24 Patient unable to answer at this time (ie. confused, unrespo /Reproduction History /Reproductive History - administrative services coordinator: /Reproductive Hx- administrative services coordinator Hx Now No 04/20/24 14:24 Gestational Age (in weeks): EDC: Hx Hx Para Hx Section SAB No 04/20/24 14:24 Active Medications Active Medications: Current Medications Generic Name Dose Route Start Last Admin Trade Name Freq PRN Reason Stop Dose Admin Lactated Ringer's 1,000 mls @ 15 mls/hr 04/26/24 06:15 04/26/24 06:25 IV 15 mls/hr .Q48H PAIGE Administration PFSH Medical History Easy bruising Osteoporosis Wears glasses Cancer Depression Anxiety Shortness of breath on exertion Hx of echocardiogram Hypertension Former smoker Acquired absence of bilateral breasts and nipples History of removal of left breast implant Neoplasm of skin of forehead Cancer of left breast Breast cancer, left Left breast mass Personal history of skin cancer Rupture of implant of right breast Breast implant removal status Capsular contracture of breast implant Disproportion of reconstructed breast Basal cell carcinoma (BCC) of skin of left breast 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 Rupture of implant of left breast Home Medications ?Medication ?Instructions ?Recorded ?Last Taken ?Type alprazolam 0.5 mg tablet (Xanax) 0.25 mg PO DAILY PRN Anxiety 09/19/18 05/14/21 History cholecalciferol (vitamin D3) 125 5,000 unit PO DAILY supplement 12/16/18 05/14/21 History mcg (5,000 unit) capsule bupropion HCl 300 mg 24 hr tablet, 300 mg PO DAILY MOOD 05/15/21 04/26/24 History extended release fluoxetine 20 mg capsule 20 mg PO QDAY 03/13/24 04/26/24 History rosuvastatin 10 mg tablet 10 mg PO QHS 03/13/24 Unknown History mirtazapine 15 mg tablet 15 mg PO QHS 04/20/24 Unknown History Allergy/AdvReac Type Severity Reaction Status Date / Time No Known Allergies Allergy Verified 04/26/24 06:23 Family History Father Cancer Brother Cancer Sister Cancer Breast cancer Diabetes Mother Hypertension Surgical History Hx of right mastectomy History of vascular access device S/P left mastectomy History of left breast biopsy (~07/10/20) Hx of breast surgery History of basal cell carcinoma excision Hx of breast implants, bilateral H/O: hysterectomy H/O section Social History Smoking Status: Former smoker alcohol intake: never Review of Systems (Anesthesia) ROS Narrative System reviewed and no additional complaints, except as documented.
--- NOTE | 2024-04-26 07:12 | HP.PCM_ITS ---
HPI - General General Date of Service: 04/26/24 HPI Narrative SEVEN MOORE, is a 69 F who presents for a positive fit test. Patient denies any changes since time of office visit office visit 03/13/24 HPI HPI: 69-year-old female presents for diagnostic colonoscopy due to positive fit test. Patient's previous colonoscopy was in 2017 she did have a rectal polyp which was hyperplastic at that time. Patient states she has bowel movements daily denies any blood. Patient denies any family history of colon cancer. Patient denies any abdominal pain/nausea/vomiting/reflux. FORMERLY [facility] Medical History Easy bruising Osteoporosis Wears glasses Cancer Depression Anxiety Shortness of breath on exertion Hx of echocardiogram Hypertension Former smoker Acquired absence of bilateral breasts and nipples History of removal of left breast implant Neoplasm of skin of forehead Cancer of left breast Breast cancer, left Left breast mass Personal history of skin cancer Rupture of implant of right breast Breast implant removal status Capsular contracture of breast implant Disproportion of reconstructed breast Basal cell carcinoma (BCC) of skin of left breast 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 Rupture of implant of left breast Home Medications ?Medication ?Instructions ?Recorded ?Last Taken ?Type alprazolam 0.5 mg tablet (Xanax) 0.25 mg PO DAILY PRN Anxiety 09/19/18 05/14/21 History cholecalciferol (vitamin D3) 125 5,000 unit PO DAILY supplement 12/16/18 05/14/21 History mcg (5,000 unit) capsule bupropion HCl 300 mg 24 hr tablet, 300 mg PO DAILY MOOD 05/15/21 04/26/24 History extended release fluoxetine 20 mg capsule 20 mg PO QDAY 03/13/24 04/26/24 History rosuvastatin 10 mg tablet 10 mg PO QHS 03/13/24 Unknown History mirtazapine 15 mg tablet 15 mg PO QHS 04/20/24 Unknown History Allergy/AdvReac Type Severity Reaction Status Date / Time No Known Allergies Allergy Verified 04/26/24 06:23 Family History Father Cancer Brother Cancer Sister Cancer Breast cancer Diabetes Mother Hypertension Surgical History Hx of right mastectomy History of vascular access device S/P left mastectomy History of left breast biopsy (~07/10/20) Hx of breast surgery History of basal cell carcinoma excision Hx of breast implants, bilateral H/O: hysterectomy H/O section Social History Smoking Status: Former smoker alcohol intake: never Past Medical/Surgical History Planned Operation Planned Operative Procedure(s): CSCOPE S.O.S: No Previous Hospitalizations/Surgeries HX Hospitalizations: No HX of Surgeries: csection x2 hysterectomy breast implants excision lesion left medial breast with frozen section 2018 left skin cancer removal, forehead,chest 08/2019 left breast removal ruptured implant, reconstruction/slaby left mastectomy,sentinal lymph node biopsy 07/2020 Any Problems With Anesthesia: No You/Your Family Experience Fever (Hyperthermia) With Anes: No Cholinesterase deficiency: No Cardiovascular Hx Chest Pain within Last 2 months: No Hx of Irregular Heartbeat and/or Afib: No Hx Heart Attack: No Hx Congestive Heart Failure: No Hx Rheumatic Fever: No Hx Hypertension: Yes (NO MEDS SINCE 2020) Hx Internal Defibrillator: No Hx Pacemaker: No Hx Cardiac Catheterization: No Hx Cardiac Surgery/Stents/Etc.: No Hx Stress Test: No Hx Pain in Legs when Walking/Leg Cramps: No Respiratory Chronic Cough: No HX of Shortness of Breath: No (denies) Hoarseness: No Hx Chronic Obstructive Pulmonary Disease (COPD): No Hx Asthma: No Hx Emphysema: No Hx Sleep Apnea: No CPAP: No Hx Respiratory Tract Infection/Cold (presently): No Do You Snore Loudly (louder than talking or can be heard): Yes Do You Often Feel Tired/ Fatigued/ Sleepy Dring Daytime?: No Has Anyone Observed You Stop Breathing During Sleep?: No Result (for STOP score): Positive Hx Smoking: Yes (1/2 ppd for 10+ yrs. quit 07/23/2020) Smoking Status: Former smoker Gastrointestinal Hx Gastrointestinal Disorders: No Hx Gastrointestinal Bleed: No Hx Ulcer: No Hx Hiatal Hernia: No Difficulty Chewing/Swallowing: Yes (due to mouth sores) Special diet followed at home: No Hx Unplanned Weight Loss of 20#: No HX Unplanned Weight Gain of 20#: No Neurological Hx Seizures: No HX Syncope/Blackout Spells/Unconsciousness: No Hx Transient Ischemic Attacks (TIA): No Hx Multiple Sclerosis: No Hx Parkinson's Disease: No Hx Head/Neck Injury: No Hx Headaches: No Hx Back Injury/Pain: No Recent Onset of Speech Difficulty: No Restless Legs: No Does patient have nerve stimulator: No Blood Disorder Hx Leukemia: No Bleeding Tendencies: No Hx Deep Vein Thrombosis: No Hx High Cholesterol: Yes (no meds) Blood Transmitted Disease: No Hx Hepatitis: No Hx Cirrhosis: No Hx Anemia: No Hx Blood Disorders: No Reproduction : No Is Patient Lactating: No Hx Hysterectomy: Yes Hx Tubal Ligation: No Are You Post Menopause: Yes Genitourinary Hx Renal Disease: No (denies problems voiding post op) Musculoskeletal Hx Arthritis: No Hx Rheumatoid Arthritis: No Hx Gout: No Recent Onset of an Orthopedic Problem: No Endocrine Hx Diabetes: No Thyroid Disease: No Hx Steroid Therapy: No Psycho/Social Hx Substance Use: No Hx Alcohol Use: No Hx Anxiety: Yes (on med) Hx Depression: Yes (on med) Mental Illness: No Hx Dementia: No Miscellaneous Hx Cancer: Yes (left breast CA,skin ca) Recent Exposure to Contagious Disease: No Hx of C-Diff: No Any Loose Teeth: No Allergies No Known Allergies Allergy (Verified 04/26/24 06:23) Discharge Is Pt Admitted From a Residential, or a [place] [facility]: No After D/C, Where Do you Plan to Go: Return Home From the PAT History Number of Risk Factors: 3 Vital Signs Vital Signs Vital Signs: 04/26/24 06:23 04/26/24 06:23 04/26/24 06:40 Temperature 97.1 F L 97.1 F L Temperature Source Temporal Pulse Rate 78 78 Respiratory Rate 16 16 Respiratory Pattern Normal Blood Pressure 127/88 H 127/88 H Blood Pressure Mean 101 Blood Pressure Source Monitor Blood Pressure Position Semi-Fowlers Blood Pressure Location Right Arm Pulse Ox 95 95 Oxygen Delivery Method Room Air Weight Weight: 127 lb 13.89 oz Body Mass Index (BMI) 24.1 Physical Exam Const alert, oriented x3 and no apparent distress HEENT normocephalic and head/scalp atraumatic Resp normal respiratory effort Cardio regular rate GI soft to palpation and non-tender; Negative for non-distended Palpation: Negative for guarding Extremity no clubbing, cyanosis or edema Skin no rashes or lesions noted Neuro CN's II-XII intact bilaterally Psych mental status grossly normal Assessment & Plan Assessment/Plan (1) Positive FIT (fecal immunochemical test): Surgery Risks - Colonoscopy I discussed with the patient the risks of the procedure: Yes Risks Include but are not Limited To: Risks include but are not limited to: Bleeding, perforation requiring further surgery, inability to complete colonoscopy requiring barium enema.
--- NOTE | 2024-04-26 08:12 | OP.COLON_ITS ---
Patient Name: Nuha Richards Procedure Date: 04/26/2024 7:33 AM Date of : 1955 Age: 69 Procedure: Colonoscopy Indications: Positive fecal immunochemical test Providers: Lorenza Mcclani MD Referring MD: Rob Duque Medicines: Monitored Anesthesia Care Patient Profile: This is a 69 year old female. Last Colonoscopy: 2016. Complications: No immediate complications. Procedure: Pre-Anesthesia Assessment: - Prior to the procedure, a History and Physical was performed, and patient medications and allergies were reviewed. The patient's tolerance of previous anesthesia was also reviewed. The risks and benefits of the procedure and the sedation options and risks were discussed with the patient. All questions were answered, and informed consent was obtained. Prior Anticoagulants: The patient has taken no anticoagulant or antiplatelet agents. ASA Grade Assessment: Per anesthesia. After reviewing the risks and benefits, the patient was deemed in satisfactory condition to undergo the procedure. After I obtained informed consent, the scope was passed under direct vision. Throughout the procedure, the patient's blood pressure, pulse, and oxygen saturations were monitored continuously. The pediatric colonoscope was introduced through the anus and advanced to the cecum, identified by the appendiceal orifice, ileocecal valve and palpation. The patient tolerated the procedure well. The colonoscopy was technically difficult and complex due to a tortuous colon. Successful completion of the procedure was aided by applying abdominal pressure. Scope In: 7:39:15 AM Scope Withdrawal Time 0 hours 11 minutes 22 seconds Scope Out: 8:06:04 AM Total Procedure Duration Time 0 hours 26 minutes 49 seconds Findings: The perianal and digital rectal examinations were normal. Multiple small-mouthed diverticula were found in the entire colon. A 10 mm polyp was found in the rectum. The polyp was semi-pedunculated. The polyp was removed with a hot snare. Resection and retrieval were complete. The exam was otherwise without abnormality on direct and retroflexion views. Impression: - Diverticulosis in the entire examined colon. - One 10 mm polyp in the rectum, removed with a hot snare. Resected and retrieved. - The examination was otherwise normal on direct and retroflexion views. Recommendation: - Discharge patient to home. - Resume previous diet. - Continue present medications. - Await pathology results. - Repeat colonoscopy in 3 - 5 years for surveillance based on pathology results. Procedure Code(s): --- Professional --- 89960, Colonoscopy, flexible; with removal of tumor(s), polyp(s), or other lesion(s) by snare technique Diagnosis Code(s): --- Professional --- D12.8, Benign neoplasm of rectum R19.5, Other fecal abnormalities K57.30, Diverticulosis of large intestine without perforation or abscess without bleeding CPT copyright 2021 [employer]. All rights reserved. The codes documented in this report are preliminary and upon mannequin molder review may be revised to meet current compliance requirements. MD Lorenza Holly MD 04/26/2024 8:11:33 AM This report has been signed electronically. Number of Addenda: 0 Note Initiated On: 04/26/2024 7:33 AM
--- NOTE | 2024-04-26 08:12 | OP.CCLET_ITS ---
04/26/2024 Rob Duque [address] [place] [address] Re : Colonoscopy procedure for Nuha Richards Dear Dr. Duque This procedure was performed on Friday, April 26, 2024. My impressions and recommendations are as follows: Impressions : - Diverticulosis in the entire examined colon. - One 10 mm polyp in the rectum, removed with a hot snare. Resected and retrieved. - The examination was otherwise normal on direct and retroflexion views. Recommendations : - Discharge patient to home. - Resume previous diet. - Continue present medications. - Await pathology results. - Repeat colonoscopy in 3 - 5 years for surveillance based on pathology results. My findings are described in the full procedure note, which is enclosed. If I can be of further assistance, please feel free to contact me at Doctor phone number(s): , Work: . Sincerely, MD Lorenza Holly MD 04/26/2024 8:11:33 AM This report has been signed electronically.
--- NOTE | 2024-04-26 08:17 | PCM.POST.ANE ---
Anesthesia: Postop Eval I Current Vital Signs Temperature: 97 F Pulse Rate: 67 Blood Pressure: 86/55 Respiratory Rate: 16 Pulse Ox: 96 Oxygen Delivery Method: Room Air Assessment Airway patent: Yes Spontaneous unlabored respirations: Yes Mental status: Asleep nausea: No Vomiting: No Anesthesia Complication: No Fluid Hydration Crystalloid volume administer (ml): 700 Total IV fluid infused: 700 Progress Note Anesthesia document: Postop Eval 1 completed: Yes
--- NOTE | 2024-04-26 08:27 | PCM.POSTANE2 ---
Anesthesia Postop Eval I Sum Postop Eval Completion status Anesthesia document: Postop Eval 1 completed: Yes Anesthesia Postop Eval I Summary Anesthesia Postop Eval I Summary: Anesthesia Postop Eval I: Assessment Summary Airway patent Yes 04/26/24 08:18 [email or web address] Spontaneous unlabored Yes 04/26/24 08:18 [email or web address] respirations Mental status Asleep 04/26/24 08:18 [email or web address] nausea No 04/26/24 08:18 [email or web address] Vomiting No 04/26/24 08:18 [email or web address] Anesthesia Postop Eval I: Fluid Summary Crystalloid volume administer 700 04/26/24 08:18 [email or web address] (ml) Colloids volume administered ( ml) Blood Product volume administered (ml) Total IV fluid infused 700 04/26/24 08:18 [email or web address] Anesthesia Postop Eval I: Summary Notes Anesthesia Complication No 04/26/24 08:18 [email or web address] Anesthesia Complication Comment: Post-operative progress note Anesthesia: Postop Eval II Evaluation Mental status: Awake Pain Level: 0 nausea: No Vomiting: No Complications Anesthesia Complication: No
== END 2024-04-26 08:53 | disposition home or self-care (01) ==
LOC: EN 06:05 → AC 06:07
PROVIDERS: PCP Family Medicine; Referring Provider Family Medicine; Visit Provider Surgery
PROC: 0DJD8ZZ Inspection of Lower Intestinal Tract, Via Natural or Artificial Opening Endoscopic (ICD-10-PCS; CPT 45378; principal; 2024-04-26 07:25)
DX: R19.5 Other fecal abnormalities (principal); D12.8 Benign neoplasm of rectum; K57.30 Diverticulosis of large intestine without perforation or abscess without bleeding; I10 Essential (primary) hypertension; Z87.891 Personal history of nicotine dependence; Z87.19 Personal history of other diseases of the digestive system
CPT/HCPCS: 45385; 88305; J7120; J2405